=== PATIENT | female | born 1995 | race Caucasian/White ===

== ENCOUNTER 2024-02-03 01:08 | Inpatient (IN) | payer OTHER, SELFPAY ==
[2024-02-03] VITALS (186 sets, daily range): BP systolic 79–134; BP diastolic 39–87; PULSE 60–143; RESP 18; TEMP 36.3–37.7; O2SAT 93–100; BMI 29.5
--- NOTE | 2024-02-03 01:22 | LDADM ---
This patient, Lucita Vazquez, was admitted to Labor/Delivery/Recovery 107 on 02/03/24 at 01:08. Plans for labor, pain management and were discussed with patient. Patient/family oriented to hospital policies and general routines including ID bracelet, bed and alarms, visiting hours, pain management, procedures, bathroom and other care routines, personal items, smoking policy, room service/diet and guest tray routines, security routines, and visiting hours. Patient/Family are encouraged to report perceived risks to care and to ask questions if they do not understand what they are told or what they should do. See OBIX for further documentation.
[2024-02-03 01:37] LABS: Basophils Absolute Auto 0.1 K/mm3 (0.0-0.1); Basophils Percent Auto 0.5 % (0.2-1.2); Eosinophils Absolute Auto 0.1 K/mm3 (0-0.3); Eosinophils Percent Auto 0.9 % (0-4.4); Hematocrit 32.1 % (37.0-47.0); Hemoglobin 10.1 g/dL (12.0-15.0); Immature Granulocyte Absolute 0.13 K/mm3 (0.00-0.031); Lymphocytes Absolute Auto 2.85 K/mm3 (0.9-3.2); Lymphocytes Percent Auto 21.4 % (18.3-44.2); Mean Corpuscular HGB Conc 31.5 g/dl (32-36); Mean Corpuscular Volume 85.8 fl (80-100); Mean Platelet Volume 9.5 fl (7.4-10.4); Monocytes Absolute Auto 0.9 K/mm3 (0.1-0.6); Monocytes Percent Auto 7.1 % (2.6-8.5); Neutrophils Absolute Auto 9.2 K/mm3 (1.3-6.7); Neutrophils Percent Auto 69.1 % (45.5-73.1); Platelet Count Result 252 k/mm3 (150-375); Red Blood Count 3.74 M/mm3 (4.2-5.4); Red Cell Distribution Width 13.2 % (11.5-14.5); White Blood Count 13.3 K/mm3 (4.5-10.0)
[2024-02-03 02:27] LABS: HIV 1/2 Ab P24 Ag Result Negative (Negative)
[2024-02-03] MEDS: AMPICILLIN 2 GM/NS 100 ML 2 GM/100 ML BAG IVPB (02:52)
[2024-02-03] MEDS: LACTATED RINGERS 1,000 ML 125 ML IV CONT ×3 (02:52→14:43)
--- NOTE | 2024-02-03 05:30 | P.PNAN_ITS ---
Anes - Eval Pre Procedure Procedure: Labor epidural Date/Time: 02/03/24 05:30 Surgeon: Aashish Preop Diagnosis: Abdominal pain with contractions Pre Op Diagnosis: SROM Patient Data Age: 28 Gender: F Height: 1.63 m Weight: 78 kg Last Vital Signs Temp 97.8 F 02/03/24 04:00 Pulse 90 02/03/24 05:00 BP 123/87 02/03/24 05:00 Allergies Allergy/AdvReac Type Severity Reaction Status Date / Time No Known Allergies Allergy Verified 02/03/24 02:39 Laboratory Tests 02/03/24 01:30 WBC 13.3 H K/mm3 (4.5-10.0) RBC 3.74 L M/mm3 (4.2-5.4) Hgb 10.1 L g/dL (12.0-15.0) Hct 32.1 L % (37.0-47.0) MCV 85.8 fl (80-100) MCH 27.0 pg (26-34) MCHC 31.5 L g/dl (32-36) RDW 13.2 % (11.5-14.5) Plt Count 252 k/mm3 (150-375) MPV 9.5 fl (7.4-10.4) Immature Gran % (Auto) 1.0 H % (0-0.5) Neut % (Auto) 69.1 % (45.5-73.1) Lymph % (Auto) 21.4 % (18.3-44.2) [place] % (Auto) 7.1 % (2.6-8.5) Eos % (Auto) 0.9 % (0-4.4) Baso % (Auto) 0.5 % (0.2-1.2) Lymph # (Auto) 2.85 K/mm3 (0.9-3.2) [place] # (Auto) 0.9 H K/mm3 (0.1-0.6) Eos # (Auto) 0.1 K/mm3 (0-0.3) Baso # (Auto) 0.1 K/mm3 (0.0-0.1) Abs Immat Gran (auto) 0.13 H K/mm3 (0.00-0.031) Absolute Neuts (auto) 9.2 H K/mm3 (1.3-6.7) Absolute Nucleated RBC 0.000 K/mm3 (0.0-0.012) Nucleated RBC % 0.0 % (0.0-0.2) RPR Pending HIV 1&2 Ab/P24 Ag 4thGn Negative (Negative) Blood Type A Positive Antibody Screen Negative : gestational age HCG: positive Patient hx anesthesia problems: none Family hx anesthesia problems: none Results Review: All pre-operative results and documents have been reviewed as part of the pre- operative evaluation. [facility] Past Medical History Medical History Overweight (BMI 25.0-29.9) and not yet delivered Social History Social History Smoking status: Never smoker Do You Feel Safe in your Home?: Yes Lack of Transportation: No Lack of Food: Never True Current Housing: I Have Housing Concerned About Future Housing: No Difficulty Paying Gas/Electric Bills: No Difficulty Paying for Meds: No Currently Unemployed: No Education: Bachelor's Degree Difficulty w/ Childcare or Family Care: No Spiritual care concerns: No Exam Day of Procedure 02/03/24 05:30 Patient weight: overweight
[2024-02-03] MEDS: OXYTOCIN 30 UNITS/NS 500 ML 30 UNITS/500 ML BAG IV CONT (06:41)
--- NOTE | 2024-02-03 08:30 | PM.IMHP ---
H&P: HPI History of Present Illness Date/Time: 02/03/24 08:30 Chief Complaint: SROM Narrative: Patient is a 28 year old at 38w2d who presents after SROM of clear fluid overnight. She reports mild contractions since that time. SHe denies bleeding and reports good movement. Her has been complicated by circumvallate placenta, with good growth. Denies headaches, vision changes, chest pain, dyspnea, RUQ pain or epigastric pain. Review of Systems Review of Systems: All systems reviewed & are unremarkable except as noted in HPI and below PMFSH Past Medical History Medical History Overweight (BMI 25.0-29.9) and not yet delivered Social History Social History Smoking status: Never smoker Do You Feel Safe in your Home?: Yes Lack of Transportation: No Lack of Food: Never True Current Housing: I Have Housing Concerned About Future Housing: No Difficulty Paying Gas/Electric Bills: No Difficulty Paying for Meds: No Currently Unemployed: No Education: Bachelor's Degree Difficulty w/ Childcare or Family Care: No Spiritual care concerns: No Meds Home Medications and Allergies Allergies Allergy/AdvReac Type Severity Reaction Status Date / Time No Known Allergies Allergy Verified 02/03/24 02:39 Vital Signs Vital Signs - 24 hr 02/03/24 04:01 02/03/24 04:06 02/03/24 04:31 Temperature Pulse Rate 79 78 80 Blood Pressure 100/45 L 113/66 02/03/24 02:00 02/03/24 04:00 02/03/24 05:00 Temperature 97.6 F 97.8 F Pulse Rate 90 Blood Pressure 123/87 02/03/24 06:45 02/03/24 06:40 02/03/24 07:59 Temperature 98.8 F Pulse Rate 78 83 Blood Pressure 115/70 112/65 02/03/24 08:01 Temperature Pulse Rate 86 Blood Pressure 109/69 Exam Const: General: comfortable and no acute distress HENMT: Mouth: Yes moist mucous membranes Eyes: General: appearance normal, both eyes and all related structures Resp: Effort & Inspection: normal respiratory effort Cardio: Rate: regular rate Rhythm: regular rhythm Skin: General skin exam: normal color and no rashes or lesions noted Extrem: General: normal to inspection Psych: Mental Status: mental status grossly normal H&P: Results Labs Labs: Short CBC 02/03/24 Range/Units 01:30 WBC 13.3 H (4.5-10.0) K/mm3 Hgb 10.1 L (12.0-15.0) g/dL Hct 32.1 L (37.0-47.0) % Plt Count 252 (150-375) k/mm3 Assessment and Plan Assessment and plan (1) SROM (spontaneous rupture of membranes): Status: Acute (2) 38 weeks gestation of : Code(s): Z3A.38 - 38 weeks gestation of Status: Acute Plan - SROM of clear fluid - SVE /-3 - pitocin per protocol -epidural when desired
[2024-02-03 11:26] LABS: Rapid Plasma Reagin Non-Reactive (NonReactive)
[2024-02-03] MEDS: AMPICILLIN 1 GM/NS 50 ML 1 GM/50 ML BAG IVPB (17:27)
--- NOTE | 2024-02-03 19:55 | PM.OBPRVD ---
OB - Vaginal Delivery Note Procedure Delivery date: 02/03/24 Events: Other (SROM at 2300 (02/02/24)) Induction method: Per Pitocin Protocol Delivery monitor: External FHT and Internal Uterine Route of delivery: Episiotomy description: None Laceration Description: Perineal - 2nd Degree Delivery repair: vicryl Specimen: No Quantitative Blood Loss (ml): 150 Anesthesia type: Epidural Disposition: Floor Complications: No immediate complications Narrative: See H&P and notes for details on patient's admission and labor. She progressed to complete cervical dilation and at the appropriate time began pushing. With adequate expulsive efforts by the mother, the baby's head was delivered without difficulty. Nuchal cord was not present. The baby's left shoulder was anterior and delivered under the pubic symphysis without difficulty. The posterior shoulder and the rest of the baby delivered without difficulty. The umbilical cord was doubly clamped and cut after 60 seconds of delayed cord clamping. Care of the infant was then assumed by the nursing staff. Baby Date of : 02/03/24 Weeks of gestation at delivery: 38 gender: Male presentation: vertex position: Left Occiput Anterior Placenta delivery description: Expressed Cord Vessel Description: 3 Vessels
[2024-02-03] MEDS: OXYTOCIN 30 UNITS/NS 500 ML 30 UNITS/500 ML BAG 125 UNITS IV CONT (20:05)
[2024-02-03] MEDS: IBUPROFEN 600 MG TABLET PO (20:40)
[2024-02-03] MEDS: BENZOCAINE 20% AER SPR (*SP) 56 GM CAN 1 SPRAY TOPICAL (22:18)
[2024-02-03] MEDS: ACETAMINOPHEN 325 MG TABLET 650 MG PO (22:18)
[2024-02-03] MEDS: WITCH HAZEL 40 PADS 1 PAD TOPICAL (22:18)
[2024-02-04 02:56] VITALS: BP 108/63; PULSE 84; RESP 18; TEMP 37.1; O2SAT 98
[2024-02-04 05:05] LABS: Hematocrit 27.7 % (37.0-47.0); Hemoglobin 8.7 g/dL (12.0-15.0)
[2024-02-04 08:00] VITALS: BP 112/74; PULSE 87; RESP 16; TEMP 37.4; O2SAT 98
[2024-02-04] MEDS: MULTIVIT/MIN/PREN/FOL AC/IRON TABLET 1 TAB PO (09:01)
[2024-02-04] MEDS: DOCUSATE SODIUM 100 MG CAPSULE PO ×2 (09:01→16:47)
[2024-02-04] MEDS: POLYSACCHARIDE IRON COMPLEX 150 MG CAPSULE PO ×2 (09:01→16:47)
[2024-02-04] MEDS: ACETAMINOPHEN 325 MG TABLET 650 MG PO ×2 (09:01→16:47)
[2024-02-04] MEDS: IBUPROFEN 600 MG TABLET PO (11:49)
[2024-02-04 12:44] VITALS: BP 121/68; PULSE 79; RESP 16; TEMP 37.2; O2SAT 99
--- NOTE | 2024-02-04 15:12 | WPDANLDPN2 ---
Anes-Prog Note L&D Date/Time: 02/04/24 15:12 Comfortable throughout: labor and delivery Neuraxial method: epidural Epidural/Spinal procedure site: clean & non-tender Neuro status: Neuro function grossly intact. Cardiovascular status: normal Respiratory status: normal Airway patency: baseline Mental status: baseline Post-Op hydration status: normal Vital Signs: Last Vital Signs Temp 37.2 C 02/04/24 12:44 Pulse 79 02/04/24 12:44 Resp 16 02/04/24 12:44 BP 121/68 02/04/24 12:44 Pulse Ox 99 02/04/24 12:44 O2 Del Method Room Air 02/04/24 07:30 Pain score (VAS): 0/10 I/O: Intake & Output 02/03/24 02/04/24 02/04/24 23:59 07:59 15:59 Intake Total 100 Output Total 150 Balance -150 100 Post-procedural complaints: none Patient feedback: Patient satisfied with anesthetic care.
--- NOTE | 2024-02-04 15:27 | PC.NURSE ---
[id number] Introductions were made, then consulted with patient to assess needs related to . Discussed with mother her?plans to feed?her infant, the?experience so far, encouraged [id number] upright on her chest/breast, stimulating for wakefulness and protecting her milk supply. Resources provided for inpatient and outpatient services with the feeding sheet, mom/baby guide and name written on the communication board. Mother voiced understanding of information and will call if there is a request for assistance. [id number] Attempts were made with [id number], stimulation to practice and is sleepy and reluctant. Breast pump provided prior to meeting RN LC due to ineffective . Instructions given on cleaning, care, usage, that there should be no pain, pumping schedule for milk production, collection, and storage of human milk. Patient was assessed for correct placement, flange size (changed to 21mm), to pump for comfort and nipple stretching/stimulation for adequate milk production every 3 hours (8 times in 24 hours) 1-2 times at night. Parents are encouraged to record the pumping schedule on the feeding sheet.?Mother voiced understanding of the education shared along with mom/baby guide and the pump measurement, flange fit handout for additional resource information. [id number] Purposefully rounded to assess for needs. remains sleepy and reluctant after circumcision this morning and oral medication. is a poor nut feeder. Demonstrated stimulating for wakefulness to practice . Infant had two voids and three large stools total with diaper change. Mother opted to bottle feed the EBM to and pump to protect the milk supply only without . Infant is reluctant and not showing feeding cues to practice with. After the diaper change infant bottle fed the EBM well. Nipple shield provided prior to meeting RNLC to mother due to ineffective with low profile nipples. Reviewed good handwashing, cleaning the nipple shield and the appropriate way to apply and use as a tool. Discussed with mom the nipple shield precautions, possible complications associated with the risks and benefits. Reviewed practicing with a nipple shield, then without and how to protect the milk supply and production. Demonstrated the correct use of the nipple shield. Parents voiced understanding of education. Mom voiced understanding of the importance of hand expression, nipple stimulation and initiating a pumping schedule if continues to nurse with the shield.
[2024-02-04 16:00] VITALS: BP 109/53; PULSE 75; RESP 16; TEMP 36.8; O2SAT 98
--- NOTE | 2024-02-04 21:10 | PM.OBPNVD ---
OB - PN: Subj Subjective Date/time seen: 02/04/24 0815 Interval history: PPD#1 Doing well, no issues Pain well controlled , doing well Voiding without issue Tolerating general diet OB - PN: Obj Data Labs 02/04/24 01:42 Labs: Laboratory Results - last 24 hr 02/04/24 01:42 Hgb 8.7 L Hct 27.7 L OB - PN A/P Assessment and Plan (1) (spontaneous vaginal delivery): Code(s): O80 - Encounter for full-term uncomplicated delivery Status: Acute Plan day: 1 Plan: routine care Time Spent With Patient Time: Total time spent is greater than 50% in coordination of care (as documented) at patient's floor/unit and/or counseling patient: Review of Systems Review of Systems: All systems reviewed & are unremarkable except as noted in HPI and below Exam Const: General: comfortable and no acute distress Resp: Effort & Inspection: normal respiratory effort
[2024-02-04 21:36] VITALS: BP 113/68; PULSE 79; RESP 16; TEMP 36.7; O2SAT 97
[2024-02-05 07:40] VITALS: BP 113/67; PULSE 72; RESP 16; TEMP 36.8; O2SAT 99
[2024-02-05] MEDS: IBUPROFEN 600 MG TABLET PO (08:44)
[2024-02-05] MEDS: DOCUSATE SODIUM 100 MG CAPSULE PO (08:44)
[2024-02-05] MEDS: POLYSACCHARIDE IRON COMPLEX 150 MG CAPSULE PO (08:44)
[2024-02-05] MEDS: MULTIVIT/MIN/PREN/FOL AC/IRON TABLET 1 TAB PO (08:44)
--- NOTE | 2024-02-05 10:31 | PC.NURSE ---
Patient viewed the discharge video Mother & Baby Care, The First Two Weeks . Patient was given the opportunity and encouraged to ask questions. Patient verbalized understanding of information shared and has been given the mother/baby guide for home reference.
--- NOTE | 2024-02-05 12:56 | PC.NURSE ---
[id number] Consulted with mother concerning needs and she shared her ability to independently latch infant optimally without pain at least once last night and early this morning. Mother is feeding appropriately for growth of infant and understands stimulating infant to eat if needed, however; mother requests assistance before going home. has had appropriate feedings in the last 24 hours meets the outcomes for weight, output, blood sugar and jaundice at this time. Reviewed positioning and ear, shoulder, hip alignment, supporting the breast to facilitate a deep latch, asymmetrical latch (off-center), leading with the chin with a big, open, wide gape and body close to mother. latched optimally to the left breast in football position, then the right breast using cross cradle. Education given to the mother of how to visualize the suckling (with good rocking jaw motion), swallows (dropping of the lower jaw) and how to listen for drinking at the breast (the ka sound) which infant demonstrated. was able to maintain latch without pain to mother protecting the nipple with optimal positioning and latching. At times demonstrated some dimpling and latch was adjusted. Parents voice understanding of what an ineffective vs effective latch looks like. Reviewed comfort measures of healing with a warm, wet washcloth to rinse breast, then leave open to air-dry, good handwashing when or touching the breast/nipples to prevent infection. Discussed with mother if there's pain or misshaped nipples to remove from the breast and latch optimally switching breast and positioning as needed to protect her nipples. Reminded parents to encourage to use a big, wide, open, gape and placing nipple to the back of the tongue aiming for the roof of the infants mouth (soft palate). Reinforced understanding of milk production, transition of milk, signs of adequate intake, transition of stool, prevention/relief of engorgement, plugged ducts, mastitis, responsive watching for feeding cues, the different methods of stimulating infant to breastfeed 1-3 hours after the start of the last feeding, community resources, and when to call a provider using the resource of the feeding sheet along with the mom and baby guide. Parents voiced understanding of the information shared, is confident to continue effectively her infant at home, when to call for assistance, denies any additional assistance or education at this time. Reported to the Primary RN.
--- NOTE | 2024-02-05 13:28 | PC.NURSE ---
[id number] requested. Upon entering the room mother has latched to the right breast. Closer assessment there's dimpling and less than 90 degree mouth opening. Detached . Stimulated for wakefulness, then latched optimally to the right breast using cross cradle and the U-hold. Infant demonstrated swallowing with no pain to mother. Increased swallowing with mother gently compressing her breast while infant suckles. Encouraged frequent with an optimal latch watching for swallowing to keep peeing, pooping and prevent weight loss and increased jaundice. Infant has had appropriate feedings in the last 24 hours meets the outcomes for weight, output, blood sugar and jaundice at this time. Reinforced understanding of milk production, transition of milk, signs of adequate intake, transition of stool, prevention/relief of engorgement, plugged ducts, mastitis, responsive watching for feeding cues, the different methods of stimulating infant to breastfeed 1-3 hours after the start of the last feeding, community resources, and when to call a provider using the resource of the feeding sheet along with the mom and baby guide. Encouraged parents to call for assistance if needed to latch to the left breast after this effective session. Parents voiced understanding of the information.
--- NOTE | 2024-02-06 09:58 | P.DS_ITS ---
DS: Admitting Diagnosis Discharge Date 02/05/24 Admitting Diagnosis rupture of membranes DS: Discharge Diagnosis Discharge Diagnosis (1) (spontaneous vaginal delivery): Code(s): O80 - Encounter for full-term uncomplicated delivery Status: Acute OB - DS: Summary OB Procedures : None OB Procedures Intrapartum: Spontaneous Vag Delivery OB Procedures: : None Peripartum Data Laceration Description: Perineal - 2nd Degree Episiotomy description: None Time Spent with Patient Time attestation: Total time spent providing and/or coordinating discharge services: Discharge Plan Discharge Discharging Clinician: Stone Lee Patient Disposition: Home, Self-Care Activity: pelvic rest Diet: regular Discharge Instructions: Education: Mom and Baby Guide Given to: Mother Follow-Up: Call your delivering provider's office for an appointment to be seen in: 4- 6 Weeks Mom and baby should come to the [facility] for the follow-up appointment. Appointment Date/Time: February 06, 2024 at 11:00 am What to expect at your follow-up visit: Blood Pressure Check Physical Assessment Call [phone] if you are unable to keep your appointment time. BREAST CARE: * Wear a snug supportive bra. * For engorgement discomfort: Breast Feeding: * Apply warm moist washcloths * Express milk as needed to relieve engorgement * Wear loose clothing * For sore nipples: * Identify correct latch-on * Apply warm moist washcloths before and after nursing * Air dry nipples after nursing * May apply Lansinoh cream to nipples PERINEAL CARE: * Until bleeding stops, use your lurdes bottle after urinating * Change your pad frequently throughout the day * You may take sitz baths several times a day (fill your bathtub with warm water and soak for 20 minutes.) Do NOT bathe in the water * No tub baths until seen by your physician - You may shower ACTIVITY: * Rest as much as possible. * Do not exercise or lift anything heavier than your baby (such as laundry or other children.) * Avoid stairs or driving as much as possible. * Do not put anything into the vagina. No douching, tampons, or sexual activity until seen by physician. NOTIFY PHYSICIAN IF YOU HAVE ANY QUESTIONS OR IF ANY OF THE FOLLOWING SYMPTOMS OCCUR: * If your vaginal bleeding becomes foul smelling. * If your vaginal bleeding becomes more heavy than a period or if your bleeding changes from pink to bright red. However, you may pass an occasional walnut- sized clot once or twice for the first week . * If you experience a sharp, shooting pain in your calves. * If you discover a hard, reddened area on your breast or if you experience flu- like symptoms. DIET: * Eat regular, well-balanced meals. * Drink plenty of fluids daily. If , drink to thirst. Stand Alone Forms: General Discharge Information Follow-up/Referrals: Raj Zendejas MD [Physician] - Discharge Medications: Continued prenat.vits,adam,[id number] Tablet 1 tablet PO DAILY Date of admission: 02/03/24 01:08 Primary Care Provider: UNKNOWN,DOCTOR Admitting Provider: Raj Zendejas Attending physician on admission: Raj Zendejas Condition: Stable
[2024-02-06 11:16] VITALS: BP 110/67; PULSE 72; RESP 18; TEMP 37.1; O2SAT 100
== END 2024-02-05 14:32 | disposition home or self-care (01) | DRG 807 ==
LOC: ANHOBOP 01:08 → ANHOB2 02-04 13:22 → ANHLDR 02-06 10:22 → ANHOB2 02-06 10:22
PROVIDERS: Obstetrics & Gynecology; Admitting Provider Obstetrics & Gynecology; Visit Provider Obstetrics & Gynecology
DX: O43.113 Circumvallate placenta, third trimester (principal); Z37.0 Single live birth; O70.1 Second degree perineal laceration during delivery; Z3A.38 38 weeks gestation of pregnancy; O42.92 Full-term premature rupture of membranes, unspecified as to length of time between rupture and onset of labor
CPT/HCPCS: 36415; 85014; 85018; 85025; 86592; 86703; 86850; 86900; 86901; A9270; G0432; J0290; J2590; J2795; J7120

== ENCOUNTER 2025-08-23 22:39 | Inpatient (IN) | payer OTHER, SELFPAY ==
[2025-08-23] VITALS (10 sets, daily range): BP systolic 121–127; BP diastolic 75–83; PULSE 78–94; O2SAT 98–99
--- OUTSIDE RECORDS SUMMARY | 2025-08-23 23:10 | XMS_ITS | Continuity of Care Document ---
Author Organization [facility], [place] Address [address] [place] [address] Care Team Providers Care Street Sprinkler Name Role Phone CATARINAMILANO Primary Care Provider [phone] Assessment No assessment recorded. Plan of Treatment Reminders Order Date Submit Date Provider Last Modified By Organization Details Last Modified Time Details Appointments OB ROUTINE 2024 03:45P Kath MLADONADO MD Not available Not available Not available INDUCTION 2024 05:00A Kath MALDONADO MD Not available Not available Not available Lab None recorded. Referral None recorded. Procedures None recorded. Surgeries None recorded. Imaging None recorded. Medication Orders None recorded. Patient TargetsNo targets recorded. Patient InstructionsNo instructions recorded. Reason for Referral None Reported. Results Created Date Observation Date Name Description Value Unit Range Abnormal Flag Note LastModifiedBy Organization Detail LastModifiedTime 03/09/20 25 03/09/2025 [UNIT Y] ANEUP LOIDY NIPT fraction 9.4% normal Not Available Lalita jasso [address], [place], [address], 03/09/2025 17:04:01 03/09/20 25 03/09/2025 [UNIT Y] ANEUP LOIDY NIPT 22Q11.2 microdeletio n LOW RISK <1 in 10,000 normal Not Available Aníbal persaud [address], [place], [address], 03/09/2025 17:04:01 03/09/20 25 03/09/2025 [UNIT Y] ANEUP LOIDY NIPT sex chromosome aneuploidy NOT DETECT ED normal Not Available [facility] [address], [place], [address], 03/09/2025 17:04:01 03/09/20 25 03/09/2025 [UNIT Y] ANEUP LOIDY NIPT monosomy X LOW RISK <1 in 10,000 normal Not Available [facility] [address], [place], [address], 03/09/2025 17:04:01 03/09/20 25 03/09/2025 [UNIT Y] ANEUP LOIDY NIPT trisomy 13 LOW RISK <1 in 10,000 normal Not Available [facility] [address], [place], [address], 03/09/2025 17:04:01 03/09/20 25 03/09/2025 [UNIT Y] ANEUP LOIDY NIPT trisomy 18 LOW RISK <1 in 10,000 normal Not Available [facility] [address], [place], [address], 03/09/2025 17:04:01 03/09/20 25 03/09/2025 [UNIT Y] ANEUP LOIDY NIPT trisomy 21 LOW RISK <1 in 10,000 normal Not Available [facility] [address], [place], [address], 03/09/2025 17:04:01 03/09/20 25 03/09/2025 [UNIT Y] ANEUP LOIDY NIPT sex MALE normal Not Available [facility] [address], [place], [address], 03/09/2025 17:04:01 03/09/20 25 03/09/2025 [UNIT Y] ANEUP LOIDY NIPT gestation SINGLE TON normal Not Available [facility] [address], [place], [address], 03/09/2025 17:04:01 03/09/20 25 03/09/2025 [UNIT Y] ANEUP LAKHWINDER NIPT for detailed report, see pdf See PDF normal Not Available [facility] [address], [place], [address], 03/09/2025 17:04:01 03/02/20 25 03/02/2025 CBC W/DIF F WBC 12.0 10'3/ uL 3.5-10 .5 high Not Available [facility] (Lab) [address], [place], [address], 03/03/2025 12:10:29 03/02/20 25 03/02/2025 CBC W/DIF F RBC 4.15 10'6/ uL (based on docume nted legal sex) 3.80-5 .20 Not Available [facility] (Lab) [address], [place], [address], 03/03/2025 12:10:29 03/02/20 25 03/02/2025 CBC W/DIF F HGB 12.9 g/dL (based on docume nted legal sex) 11.6-1 5.4 Not Available [facility] (Lab) [address], [place], [address], 03/03/2025 12:10:29 03/02/20 25 03/02/2025 CBC W/DIF F HCT 37.6 % (based on docume nted legal sex) 34.0-4 5.0 Not Available [facility] (Lab) [address], [place], [address], 03/03/2025 12:10:29 03/02/20 25 03/02/2025 CBC W/DIF F MCV 90.6 fL 80.0-9 9.0 Not Available [facility] (Lab) [address], [place], [address], 03/03/2025 12:10:29 03/02/20 25 03/02/2025 CBC W/DIF F MCH 31.1 pg 27.0-3 4.0 Not Available [facility] (Lab) [address], [place], [address], 03/03/2025 12:10:29 03/02/20 25 03/02/2025 CBC W/DIF F MCHC 34.3 g/dL 32.0-3 5.5 Not Available [facility] (Lab) [address], [place], [address], 03/03/2025 12:10:29 03/02/20 25 03/02/2025 CBC W/DIF F RDW 11.9 % 11.0-1 5.0 Not Available [facility] (Lab) [address], [place], [address], 03/03/2025 12:10:29 03/02/20 25 03/02/2025 CBC W/DIF F plt 344 10'3/ uL 150-40 0 Not Available [facility] (Lab) [address], [place], [address], 03/03/2025 12:10:29 03/02/20 25 03/02/2025 CBC W/DIF F MPV 9.8 fL 8.8-12 .1 Not Available [facility] (Lab) [address], [place], [address], 03/03/2025 12:10:29 03/02/2003/02/2025 CBC W/DIF F NRBC's 0.0 % 0.0 Not Available [facility] (Lab) [address], [place], [address], 03/03/2025 12:10:29 03/02/20 25 03/02/2025 CBC W/DIF F absolute NRBCs 0.0 10'3/ uL no refere nce range establ ished Not Available [facility] (Lab) [address], [place], [address], 03/03/2025 12:10:29 03/02/20 25 03/02/2025 CBC W/DIF F neutrophils 74.6 % 34.0-7 3.0 high Not Available [facility] (Lab) [address] [place], [address], 03/03/2025 12:10:29 03/02/20 25 03/02/2025 CBC W/DIF F lymphocytes 19.0 % 15.0-5 0.0 Not Available [facility] (Lab) [address] [place], [address], 03/03/2025 12:10:29 03/02/20 25 03/02/2025 CBC W/DIF F monocytes 5.0 % 1.0-15 .0 Not Available [facility] (Lab) [address] [place], [address], 03/03/2025 12:10:29 03/02/20 25 03/02/2025 CBC W/DIF F eosinophils 0.7 % 0.0-8. 0 Not Available [facility] (Lab) [address] [place], [address], 03/03/2025 12:10:29 03/02/20 25 03/02/2025 CBC W/DIF F basophils 0.4 % 0.0-2. 0 Not Available [facility] (Lab) [address] [place], [address], 03/03/2025 12:10:29 03/02/20 25 03/02/2025 CBC W/DIF F immature granulocytes 0.3 % no define d refere nce range Immat ure Granu locyt es (IG) repre sents autom ated enume ratio n of Metam yeloc ytes, Myelo cytes and Promy elocy elvis when IG is < 5%. Blast s are not inclu ded in IG and repor viktor separ ately if prese nt. Not Available [facility] (Lab) [address] [place], [address], 03/03/2025 12:10:29 03/02/20 25 03/02/2025 CBC W/DIF F absolute neutrophils 8.9 10'3/ uL 1.5-8. 0 high Not Available [facility] (Lab) [address], [place], [address], 03/03/2025 12:10:29 03/02/20 25 03/02/2025 CBC W/DIF F absolute lymphocytes 2.3 10'3/ uL 1.0-4. 0 Not Available [facility] (Lab) [address], [place], [address], 03/03/2025 12:10:29 03/02/20 25 03/02/2025 CBC W/DIF F absolute monocytes 0.6 10'3/ uL 0.2-1. 0 Not Available [facility] (Lab) [address], [place], [address], 03/03/2025 12:10:29 03/02/20 25 03/02/2025 CBC W/DIF F absolute eosinophils 0.1 10'3/ uL 0.0-0. 6 Not Available [facility] (Lab) [address], [place], [address], 03/03/2025 12:10:29 03/02/20 25 03/02/2025 CBC W/DIF F absolute basophils 0.1 10'3/ uL 0.0-0. 3 Not Available [facility] (Lab) [address], [place], [address], 03/03/2025 12:10:29 03/02/20 25 03/02/2025 CBC W/DIF F absolute immature granulocytes 0.0 10'3/ uL 0.00-0 .10 Refer ence range s for nonbi nary/ inter sex or unspe cifie d gende r patie nts have not been estab lishe d. Pleas e [facility] for range s estab lishe d for cisge nder patie nts and evalu ate in the clini adam raymond xt of the indiv idual patie nt: https :[email or web address] [email or web address] [email or web address] nm.or g/gen derx Not Available [facility] (Lab) [address], [place], [address], 03/03/2025 12:10:29 03/02/20 25 03/02/2025 HIV 1/2 ANTIG EN/AN TIBOD Y, REFLE X CONFI RMATI ON HIV antigen/anti body Nonrea ctive nonrea ctive HIV-1 antig en and HIV-1 /HIV- 2 antib odies were not detec viktor. No labor atory evide nce of HIV infec tion. Not Available [facility] (Lab) [address], [place], [address], 03/03/2025 12:10:29 03/02/2003/02/2025 HEPAT ITIS B SURFA CE ANTIG EN hepatitis B surface antigen Non-re active non-re active This assay was perfo rmed using [employer] ratio n reage nts and test kits. Value s obtai celina with other assay metho ds or kits canno t be used inter cano eably . Not Available [facility] (Lab) [address], [place], [address], 03/03/2025 12:10:30 03/02/20 25 03/02/2025 HEPAT ITIS C ANTIB SYD SCREE N, REFLE X TO CONFI RMATI ON hepatitis C antibody Non-re active non-re active Antib odies to HCV Not Detec viktor, does not exclu de the possi bilit y of expos ure to HCV. Not Available [facility] (Lab) [address], [place], [address], 03/03/2025 12:10:30 03/02/2003/02/2025 TSH, REFLE X FREE T4 TSH 2.17 uIU/m L 0.30-5 .33 Not Available [facility] (Lab) [address], [place], [address], 03/03/2025 12:10:30 03/02/20 25 03/02/2025 RUBEL LA IGG ANTIB SYD, QUANT rubella antibodies, IgG Reacti ve reacti ve Not Available [facility] (Lab) [address], [place], [address], 03/03/2025 12:10:31 03/02/20 25 03/02/2025 RUBEL LA IGG ANTIB SYD, QUANT rubella antibodies, IgG quant 20.9 IU/mL >=10 Non-r eacti ve (Non- Immun e) <10 IU/mL React gustavo (Immu ne) > or = 10 IU/mL Not Available [facility] (Lab) [address], [place], [address], 03/03/2025 12:10:31 03/02/20 25 03/02/2025 TYPE/ RH/SC REEN ABO/Rh type A POS Not Available [facility] (Lab) [address] [place], [address], 03/03/2025 12:10:31 03/02/20 25 03/02/2025 TYPE/ RH/SC REEN antibody screen NEG Not Available [facility] (Lab) [address], [place], [address], 03/03/2025 12:10:31 03/02/20 25 03/02/2025 TYPE/ RH/SC REEN exp date 2024 23:59 Not Available [facility] (Lab) [address], [place], [address], 03/03/2025 12:10:31 03/02/20 25 03/02/2025 HEMOG LOBIN A1C hemoglobin A1C 5.0 % 4.0-5. 6 The Ameri can Diabe elvis [employer] iatio n recom mends that a prima ry goal of thera fausto suarez d be a HBA1C of < 7% and that physi cians haul d reeva luate the treat ment regim en in patie nts with HBA1C value s consi stent ly > 8%. <5.7% Camryn l 5.7 - 6.4% Incre ased risk for diabe elvis >=6.5 % Diagn ostic of diabe elvis <7.0% Goal of thera py >8.0% Actio n sugge sted Not Available [facility] (Lab) [address], [place], [address], 03/03/2025 12:10:31 03/02/20 25 03/02/2025 RPR SCREE N, REFLE X TITER /CONF IRMAT ION RPR qualitative Nonrea ctive nonrea ctive Not Available [facility] (Lab) [address], [place], [address], 03/03/2025 12:10:32 05/27/20 25 05/27/2025 CULTU RE: URINE result report SEE RESULT S BELOW Test: Cultu re: Urine Speci men Sourc e: Urine - Clean Catch Speci men Type: Urine Speci men Date: 2024 1053 Resul t Date: 2024 2233 Resul t Statu s: Final resul t Abnor mal: No Resul ting Lab: [facility] [address] [facility] [address] Tel: CULTU RE ----- ----- ----- --- No growt h in 1 day (dete ction level of 10,00 0 colon ies / ml.) Not Available [facility] (Lab) [address], [place], [address], 05/28/2025 23:37:55 06/24/20 25 06/24/2025 HEMAT OCRIT (HCT) HCT 32.6 % (based on docume nted legal sex) 34.0-4 5.0 low Not Available [facility] (Lab) [address], [place], [address], 06/25/2025 14:14:21 06/24/20 25 06/24/2025 HEMOG LOBIN (HGB) HGB 10.3 g/dL (based on docume nted legal sex) 11.6-1 5.4 low Not Available [facility] (Lab) [address], [place], [address], 06/25/2025 14:14:22 06/24/20 25 06/24/2025 GTT - GESTA DHAVAL L SCREE N, ACOG OB glucose, 1 hour screen 70 mg/dL 70-135 Not Available [facility] (Lab) [address], [place], [address], 06/25/2025 14:14:22 06/24/20 25 06/24/2025 HIV 1/2 ANTIG EN/AN TIBOD Y, REFLE X CONFI RMATI ON HIV antigen/anti body Nonrea ctive nonrea ctive HIV-1 antig en and HIV-1 /HIV- 2 antib odies were not detec viktor. No labor atory evide nce of HIV infec tion. Not Available [facility] (Lab) [address], [place], [address], 06/25/2025 14:14:22 06/24/2006/24/2025 RPR SCREE N, REFLE X TITER /CONF IRMAT ION RPR qualitative Nonrea ctive nonrea ctive Not Available [facility] (Lab) [address], [place], [address], 06/25/2025 14:14:23 03/02/20 25 03/02/2025 US, obste tric, nucha l trans lucen cy No observ ation record ed. [facility] [address], [place], [address], 03/02/2025 17:50:41 03/02/20 25 03/02/2025 US, obste tric, 1st trime ster No observ ation record ed. [facility] [address], [place], [address], 03/02/2025 17:50:51 03/02/20 25 03/02/2025 US, obste tric, nucha l trans lucen cy No observ ation record ed. [email or web address] [address], [place], [address], 03/02/2025 16:58:55 04/26/20 25 04/26/2025 US, obste tric, 2nd trime ster No observ ation record ed. [email or web address] [address], [place], [address], 04/27/2025 09:50:11 04/26/20 25 04/26/2025 US, obste tric, 2nd or 3rd trime ster No observ ation record ed. [email or web address] [place] [address], [place], [address], 04/26/2025 18:15:52 05/27/20 25 05/27/2025 US, obste tric, follo w-up No observ ation record ed. [facility] [address], [place], [address], 05/27/2025 14:03:34 05/27/20 25 05/27/2025 US, obste tric, follo w-up No observ ation record ed. [email or web address] [address], [place], [address], 05/27/2025 14:07:05 07/22/20 25 07/22/2025 US, obste tric, follo w-up No observ ation record ed. [facility] [address], [place], [address], 07/22/2025 13:46:42 07/22/20 25 07/22/2025 US, obste tric, follo w-up No observ ation record ed. [email or web address] [address], [place], [address], 08/08/2025 11:16:18 Result Notes None recorded. Problems Name Problem SNOMED Code Status Onset Date Resolution Date Notes Provider Name and Address Organization Details Recorded Time Family history of Factor V Leiden mutation 2892373152 [id number] Completed testing negative 08/06 Megan Kwan [facility], [facility] 4 13:41:32 Placenta circumva llata 1736745 Completed serial growth Megan Kwan [facility], [facility] 4 13:41:32 Pregnanc y 68965552 Completed 202202/09/2024 SHAR Montoya [facility] 5 16:16:10 Pregnanc y 97983163 Active 2024 SHAR Montoya [facility] 5 16:16:09 Placenta circumva llata 2691501 Active 2024 32 week growth US SHANI MALDONADO MD [address], [place], [address], [facility] 5 18:25:20 Placenta circumva llata 9393953 Active 2024 32 week growth US SHANI MALDONADO MD [address], [place], [address], [facility] 5 18:25:20 Problem Notes None recorded. Procedures Surgical History Date Name Laterality Status Provider Name and Address Organization Details Recorded Time 04/24/2023 Date of Last Pap Smear completed Karime Galvin [facility] 02/02/2025 17:02:43 Imaging Results None recorded. Procedure Notes None recorded. Medical Equipment None Reported. Allergies No known drug allergies Medications Name Sig Start Date Stop Date Status Note LastModified by Organization Details LastModified Time bupropion HCl SR 150 mg tablet,12 hr sustained-r elease TAKE 1 TABLET BY MOUTH ONCE DAILY 06/21 completed Not Available Not Available Not Available phentermine 37.5 mg tablet TAKE 1 TABLET BY MOUTH ONCE DAILY IN THE MORNING BEFORE BREAKFAST 02/02 completed Not Available Not Available Not Available benzonatate 100 mg capsule TAKE 1 TO 2 CAPSULES BY MOUTH THREE TIMES DAILY NEEDED FOR COUGH 01/14 completed Not Available Not Available Not Available cephalexin 500 mg capsule TAKE 1 CAPSULE BY MOUTH THREE TIMES DAILY 01/14 completed Not Available Not Available Not Available amoxicillin 875 mg-potassiu m clavulanate 125 mg tablet TAKE 1 TABLET BY MOUTH EVERY 12 HOURS FOR 10 DAYS 06/24 completed Not Available Not Available Not Available bupropion HCl SR 200 mg tablet,12 hr sustained-r elease TAKE 1 TABLET BY MOUTH TWICE DAILY 07/05 completed Not Available Not Available Not Available azithromyci n 500 mg tablet TAKE 1 TABLET BY MOUTH ONCE DAILY FOR 5 DAYS 01/14 completed Not Available Not Available Not Available bupropion HCl XL 300 mg 24 hr tablet, extended release TAKE 1 TABLET BY MOUTH ONCE DAILY active Not Available Not Available No t Available active Not Available Not Avai lable Not Available Lomaira 8 mg tablet TAKE 1 TABLET BY MOUTH ONCE DAILY 02/02 completed Not Available Not Available Not Available Vitals Date Recorded Body weight Body mass index (BMI) Body height Systolic And Diastolic Provider Name and Address Organization Details Last Updated DateTime 07/22/2025 14164.078 39 g 25.2 kg/m2 162.56 cm 111/66 mm[Hg] Valerie Ortiz [facility] 07/22/2025 11:12:57 Social History Question Answer Notes LastModified by Organizat ion Details LastModified Time Tobacco Smoking Status Never Smoker Shirin chapman, [facility] 10/01/2023 17:03:25 Are You Blind Or Do You Have Difficulty Seeing? No Information n ot available 08/06/2023 In The 14 Days Before Symptom Onset, Have You Had Close Contact With A Laboratory-confirm ed COVID-19 While That Case Was Ill? No Information n ot available 01/14/2023 In The 14 Days Before Symptom Onset, Have You Had Close Contact With A Person Who Is Under Investigation For COVID-19 While That Person Was Ill? No Information not available 01/14/2023 Have You Been To An Area Known To Be High Risk For COVID-19? No Information not available 01/14/2023 Are You Deaf Or Do You Have Serious Difficulty Hearing? No Information not available 08/06/2023 What Is The Highest Grade Or Level Of School You Have Completed Or The Highest Degree You Have Received? [id number] Information not available 08/06/2023 Are There Any Guns Present In Your Home? No Information not available 08/06/2023 Do You Use Protection During Sex? No Information not available 08/06/2023 Do You Use Your Seat Belt Or Car Seat Routinely? Yes Information not available 08/06/2023 Do You Have Smoke And Carbon Monoxide Detectors In Your Home? No Information not available 08/06/2023 How Much Tobacco Do You Smoke? No Information not available 09/03/2023 Do You Use Sunscreen Routinely? Yes Information not available 08/06/2023 Have You Used IV Drugs? No Information not available 08/06/2023 Sex: Unknown Functional Status Question Answer Note LastModified by Organizat ion Details LastModified Time Do you use any illicit or recreational drugs? No Information not available 01/14/2023 What is your level of alcohol consumption? None Information not available 11/28/2023 Are you able to walk independently without assistance or assistive devices? 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 Occasional Information not available 11/28/2023 Mental Status Question Answer Note LastModified by Organization D etails LastModified Time Do you feel stressed (tense, restless, nervous, or anxious, or unable to sleep at night)? [id number] Information not available 09/03/2023 Family History Relationship Description Onset Age of this Age Resolved Age Notes LastModified by Organization Details LastModified Time Maternal Aunt Anemia [email or web address] Not avail able 07/03/2023 15:51:07 Maternal Uncle Heart disease [email or web address] Not available 2022 15:51:07 Mother Disorder of thyroid gland Not available 2023 16:37:13 Mother Anemia [email or web address] Not available 01/30/2024 16:37:13 Maternal Grandmother Heart disease Not available 2023 16:37:13 Medical History Condition Response Other N Blood Transfusion N Dermatologic Disorders N Gestational Diabetes N Anxiety Disorder Y Autoimmune disease N Arthritis N Polyps N Infertility N Acid Reflux (GERD) N Cancer N Varicosities N Stroke N Neurologic/Epilepsy N Fibromyalgia N Headaches N Kidney Disease N Heart Problems N Kidney or Bladder Problems N Eating Disorder N Art (IVF or FET) N Hepatitis/Liver Disease N No Past Medical History N Urinary Tract Infection N Asthma N Trauma/Violence N Thrombophilias N Allergies (Food, seasonal, environmental ) N Breast Cancer N Drug/Latex Allergies/Reactions N Lung Disease N Defects or Inherited Disease N Breast Problem N Hematologic disorders N Anesthesia Complications N History of STI N Deep Vein Thrombosis N Polycystic ovary syndrome N History of abnormal pap N Endometriosis N High Cholesterol N Thyroid Problems N GI Problems N Anemia N Psychiatric Illness N Ovarian Cancer N Diabetes N Pulmonary (TB, Asthma) N Eczema N Abuse/Domestic Violence N Depression/ depression Y Heart Disease N Pre-Eclampsia N Hypertension N Osteoporosis N Gynecological History Statement/Question Response Abnormal Pap N Flow Moderate Date of LMP 12/05/2024 On BCP's at Conception? N N Was last menstrual period normal Y STIs/STDs N HPV Vaccine N Duration of Flow (days) 5 Current Control Method Age at First Child 27 Are cycles usually normal Y Frequency of Cycle (Q days) 29 Sexually Active? Y Menses Monthly Y Age of first menstrual cycle 12 Date of Last Pap Smear 04/24/2023 Sexual Problems? N LMP Approximate N Obstetrics History GPAL:G 2 P 1 0 0 1 Type Value Full Term 1 Living 1 Total 2 Past Encounters Encounter ID Performer Location Encounter Start Date Encounter Closed Date Diagnosis/Indication Diagnosis SNOMED-CT Code Diagnosis ICD10 Code Diagnosis IMO Codes Diagnosis Note [id number] SHANI MALDONADO MD [place] [address] [address] 06/24/2025 10:01:03 06/24/2025 10:41:54 Placenta circumvallata 7523490 O43.598 5045256 Gestation period, 28 weeks 27105270 Z3A.28 2721974 [id number] SHANI MALDONADO MD [place] [address],[place] [address] 07/05/2025 09:25:40 07/05/2025 10:13:57 Depressive disorder 94509419 F32.A 01070490 Placenta circumvallata 0968880 O43.300 2336529 Gestation period, 30 weeks 59274808 Z3A.30 7938857 [id number] SHANI MALDONADO MD [place] [address],[place] [address] 07/22/2025 10:16:16 07/22/2025 11:13:21 Placenta circumvallata 2169631 O43.113 Z03.74 Z3A.32 2295273 [id number] SHANI MALDONADO MD [place] [address],[place] [address] 07/22/2025 10:17:41 07/22/2025 11:28:37 Placenta circumvallata 8771413 O43.105 8404379 Gestation period, 32 weeks 3429505 Z3A.32 0713251 Health Concerns Section Related Observation LastModified by Organization Detai ls LastModified Time None Recorded Concern Status LastModified by Organization Details LastModified Time None Recorded Payers Encounter Date Sequence Insurance Name Policy Number Policy Monteiro Covered Member ID Monteiro Member ID Guarantor Name 07/22/2025 1 FROYLANNA - [employer]BA - [employer]ETS [employer] PIP[employer]ITTERS LOCAL [facility][note 3] (PPO) [id number] Jeff Vazquez [id number] Lucita Vazquez Notes Date Note Type Note Provider Name and Address Organization Details Recorded Time 07/22/2025 text/html Generic HPI TemplateReported by Patient SHANI MALDONADO MD [address], [place], [address], [facility] 07/22/2025 11:24:56 OBGyn Episode Ob Episode Information Episode Created Date Number of Fetuses Patient Bloodtype Patient rh Status Prepregnancy Weight lbs Domestic Partner Domestic Partner Phone Father Name Milk Of Lime Slaker Status 03/02/20 25 1 A Positive OPEN Fetus Data First Name Last Name Admitted to NICU Weight (g) Sex Living Outcome Pediatric Complications Fetus ID Race Codes Race Delivery Type [id number] Problems Problem Notes Problem Name Start Date End Date Resolution Snomed Code Not e Placenta circumvallata 04/26/2025 [id number] 0 32 week growth US Rufino Calculation Initial Rufino Date Initial Exam Date Initial Exam Provider Initial Ultrasound Date Last Menstrual Period Date Ultra Sound Weeks Gestation 09/11/2025 03/02/2025 03/02/2025 12/05/2024 12 Eighteen To Twenty Week Rufino Update Ultra Sound Date Fundal Height At Umbil Quickening Date Ultra Sound Latest Weeks Gestation Final Rufino Confirmed By Final Rufino Confirmed Date Final Rufino Date Ultra Sound Latest Days Gestation 0 [id number] 03/02/2025 09/11/19 26 0 Pre-ashly Flowsheet Flowsheet Date 03/02/2025 El Score Blood Edema Fundus Height Fundus Units Glucose Ketones Leukocytes Nitrite Labor Signs Protein Cervic Dilation Cervic Effacement Cervic Station Type Weight in lbs Pre/Post Dialysis Refused BP Diastolic BP Location Tested BP Systolic BP Type Fetus Heart Rate Present Fetus Movement Comments Flowsheet Date 03/02/2025 El Score Blood Edema Fundus Height Fundus Units Glucose Ketones Leukocytes Nitrite Labor Signs Protein Cervic Dilation Cervic Effacement Cervic Station neg none Type Weight in lbs Pre/Post Dialysis Refused Weight 129.45262023967 BP Diastolic BP Location Tested BP Systolic BP Type 79 L arm 122 sitting Fetus Heart Rate Present Fetus Movement A No Comments Patient presents to [facility] care. Hx of anxiety/depression, on Wellbutrin. otherwise uncomplicated. No nausea or cramping. NT/NB wnl today, desires NIPT. Will draw today with new OB labs. RTC 4 weeks for routine care. Flowsheet Date 03/30/2025 El Score Blood Edema Fundus Height Fundus Units Glucose Ketones Leukocytes Nitrite Labor Signs Protein Cervic Dilation Cervic Effacement Cervic Station Type Weight in lbs Pre/Post Dialysis Refused Weight 130.962349963326 BP Diastolic BP Location Tested BP Systolic BP Type 70 L arm 117 sitting Fetus Heart Rate Present A 142 Present Fetus Movement A Yes Comments no complaints, no problems, routine care, no contractions, no vaginal bleeding, no loss of fluid, no cramping Flowsheet Date 04/26/2025 El Score Blood Edema Fundus Height Fundus Units Glucose Ketones Leukocytes Nitrite Labor Signs Protein Cervic Dilation Cervic Effacement Cervic Station Type Weight in lbs Pre/Post Dialysis Refused BP Diastolic BP Location Tested BP Systolic BP Type Fetus Heart Rate Present Fetus Movement Comments Flowsheet Date 04/26/2025 El Score Blood Edema Fundus Height Fundus Units Glucose Ketones Leukocytes Nitrite Labor Signs Protein Cervic Dilation Cervic Effacement Cervic Station Type Weight in lbs Pre/Post Dialysis Refused Weight 135.969302121917 BP Diastolic BP Location Tested BP Systolic BP Type 76 L arm 113 sitting Fetus Heart Rate Present A Present Fetus Movement A Yes Comments Good movement. No cram ping or bleeding. Anatomy complete and normal aside from EFW 90%. Repeat growth US in 4 weeks. Circumvallate placenta, repeat US at 32 weeks. Will plan for GCT at next visit. RTC 4 weeks. Flowsheet Date 05/27/2025 El Score Blood Edema Fundus Height Fundus Units Glucose Ketones Leukocytes Nitrite Labor Signs Protein Cervic Dilation Cervic Effacement Cervic Station Type Weight in lbs Pre/Post Dialysis Refused BP Diastolic BP Location Tested BP Systolic BP Type Fetus Heart Rate Present Fetus Movement Comments Flowsheet Date 05/27/2025 El Score Blood Edema Fundus Height Fundus Units Glucose Ketones Leukocytes Nitrite Labor Signs Protein Cervic Dilation Cervic Effacement Cervic Station Type Weight in lbs Pre/Post Dialysis Refused Weight 137.299400582994 BP Diastolic BP Location Tested BP Systolic BP Type 72 L arm 108 sitting Fetus Heart Rate Present A 135 Fetus Movement A Yes Comments Doing well, getting over sin us infection. Good movement. No cramping or bleeding. EFw 68%, normal fluid. Repeat at 32 weeks. Going to [place] on Friday, discussed travel precautions. RTC 4 weeks. Flowsheet Date 06/24/2025 El Score Blood Edema Fundus Height Fundus Units Glucose Ketones Leukocytes Nitrite Labor Signs Protein Cervic Dilation Cervic Effacement Cervic Station Type Weight in lbs Pre/Post Dialysis Refused Weight 142.334187423388 BP Diastolic BP Location Tested BP Systolic BP Type 78 L arm 120 sitting Fetus Heart Rate Present A 145 Fetus Movement A Yes Comments Good movement. No cram ping or bleeding. GCT and labs today. Discussed tdap. Repeat growth US at 32 weeks. RTC 2 weeks. Flowsheet Date 07/05/2025 El Score Blood Edema Fundus Height Fundus Units Glucose Ketones Leukocytes Nitrite Labor Signs Protein Cervic Dilation Cervic Effacement Cervic Station Type Weight in lbs Pre/Post Dialysis Refused 144.611089837181 BP Diastolic BP Location Tested BP Systolic BP Type 74 L arm 118 sitting Fetus Heart Rate Present A 145 Fetus Movement A Yes Comments Doing well, good movem ent. Passed GCT, mild anemia. Started Fe supplement. Repeat growth US next visit. RTC 2 weeks. Flowsheet Date 07/22/2025 El Score Blood Edema Fundus Height Fundus Units Glucose Ketones Leukocytes Nitrite Labor Signs Protein Cervic Dilation Cervic Effacement Cervic Station Type Weight in lbs Pre/Post Dialysis Refused BP Diastolic BP Location Tested BP Systolic BP Type Fetus Heart Rate Present Fetus Movement Comments Flowsheet Date 07/22/2025 El Score Blood Edema Fundus Height Fundus Units Glucose Ketones Leukocytes Nitrite Labor Signs Protein Cervic Dilation Cervic Effacement Cervic Station Type Weight in lbs Pre/Post Dialysis Refused 147.963211657238 BP Diastolic BP Location Tested BP Systolic BP Type 66 L arm 111 sitting Fetus Heart Rate Present A 135 Fetus Movement A Yes Comments Good movement. No cram ping or bleeding. BH contractions. Taking Fe supplement. EFW 78%, vertex. Discussed preadmission. Would like EIL 09/05. RTC 2 weeks. Flowsheet Date 08/10/2025 El Score Blood Edema Fundus Height Fundus Units Glucose Ketones Leukocytes Nitrite Labor Signs Protein Cervic Dilation Cervic Effacement Cervic Station Type Weight in lbs Pre/Post Dialysis Refused 152.339535943721 BP Diastolic BP Location Tested BP Systolic BP Type 78 L arm 128 sitting Fetus Heart Rate Present A 135 Fetus Movement A Yes Comments Baby active. No cramping or bleeding. Received Tdap and RSV. Needs preadmission scheduled. EIL scheduled. Discussed GBS for next visit. RTC 1 week. Flowsheet Date 08/17/2025 El Score Blood Edema Fundus Height Fundus Units Glucose Ketones Leukocytes Nitrite Labor Signs Protein Cervic Dilation Cervic Effacement Cervic Station 2cm 50% -2 Type Weight in lbs Pre/Post Dialysis Refused Weight 151.328159041746 BP Diastolic BP Location Tested BP Systolic BP Type 77 L arm 131 sitting Fetus Heart Rate Present A 130 Fetus Movement A Yes Comments Doing well, good movem ent. No cramping or bleeding. Scheduled preadmission. GBS collected. RTC 1 week. Flowsheet Date 08/22/2025 El Score Blood Edema Fundus Height Fundus Units Glucose Ketones Leukocytes Nitrite Labor Signs Protein Cervic Dilation Cervic Effacement Cervic Station 2cm 50% -2 Type Weight in lbs Pre/Post Dialysis Refused Weight 157.493514544507 BP Diastolic BP Location Tested BP Systolic BP Type 84 L arm 124 sitting Fetus Heart Rate Present A 150 Fetus Movement A Yes Comments Baby active. No cramping or bleeding. Increased discharge. Itching on bottom of feet, will check ICP labs today. GBS negative. RTC 1 week. Menstrual History Last Menstrual Date Menses Monthly On Bcp Conception Prior Menses Frequency Hcg Plus Date Menarche Onset Age 0312/05/2024 true Delivery Information Delivery Date Delivery Type Labor Anesthesia Weeks Gestation Incision Type Labor Labor Length Hrs Delivered By Post Complications Tubal Sterilization Discharge Date Comments Discharge Information Feeding Method Contraceptive Method Maternal HG B and HCT Levels
--- NOTE | 2025-08-23 23:11 | LDADM ---
This patient, Lucita Vazquez, was admitted to Labor/Delivery/Recovery 105 on 08/23/25 at 22:39. Plans for labor, pain management and were discussed with patient. Patient/family oriented to hospital policies and general routines including ID bracelet, bed and alarms, visiting hours, pain management, procedures, bathroom and other care routines, personal items, smoking policy, room service/diet and guest tray routines, security routines, and visiting hours. Patient/Family are encouraged to report perceived risks to care and to ask questions if they do not understand what they are told or what they should do. See OBIX for further documentation.
--- OUTSIDE RECORDS SUMMARY | 2025-08-23 23:11 | XMS_ITS | Continuity of Care Document ---
Author Organization [facility] [place] Address [address] [place] [address] Care Team Providers Care Gameroom Technician Name Role Phone CATARINAMILANO Primary Care Provider Assessment No assessment recorded. Plan of Treatment Reminders Order Date Submit Date Provider Last Modified By Organization Details Last Modified Time Details Appointments OB ROUTINE 2024 03:45P Kath MALDONADO MD Not available Not available [...] Not Available Lalita jasso [address], [place], [address], 03/09/2025 17:04:01 03/09/20 25 03/09/2025 [UNIT Y] ANEUP LOIDY NIPT 22Q11.2 microdeletio n LOW RISK <1 in 10,000 normal Not Available Aníbal persaud [address], [place], [address], 03/09/2025 17:04:01 03/09/20 25 03/09/2025 [UNIT Y] ANEUP LOIDY NIPT sex chromosome aneuploidy NOT DETECT ED normal Not Available [facility] [address], [place], [address], 03/09/2025 17:04:01 03/09/20 25 03/09/2025 [UNIT Y] ANEUP LOIDY NIPT monosomy X LOW RISK <1 in 10,000 normal Not Available [facility] [address], [place], [address], 03/09/2025 17:04:01 03/09/20 25 03/09/2025 [UNIT Y] ANEUP LOIDY NIPT trisomy 13 LOW RISK <1 in 10,000 normal Not Available [facility] [address], [place], [address], 03/09/2025 17:04:01 03/09/20 25 03/09/2025 [UNIT Y] ANEUP LOIDY NIPT trisomy 18 LOW RISK <1 in 10,000 normal Not Available [facility] [address], [place], [address], 03/09/2025 17:04:01 03/09/20 25 03/09/2025 [UNIT Y] ANEUP LOIDY NIPT trisomy 21 LOW RISK <1 in 10,000 normal Not Available [facility] [address], [place], [address], 03/09/2025 17:04:01 03/09/20 25 03/09/2025 [UNIT Y] ANEUP LOIDY NIPT sex MALE normal Not Available [facility] [address], [place], [address], 03/09/2025 17:04:01 03/09/20 25 03/09/2025 [UNIT Y] ANEUP LOIDY NIPT gestation SINGLE TON normal Not Available [facility] [address], [place], [address], 03/09/2025 17:04:01 03/09/20 25 03/09/2025 [UNIT Y] ANEUP LAKHWINDER NIPT for detailed report, see pdf See PDF normal Not Available [facility] [address], [place], [address], 03/09/2025 17:04:01 03/02/20 25 03/02/2025 CBC W/DIF F WBC 12.0 10'3/ uL 3.5-10 .5 high Not Available [facility] (Lab) [address], [place], [address], 03/03/2025 12:10:29 03/02/20 25 03/02/2025 CBC W/DIF F RBC 4.15 10'6/ uL (based on docume nted legal sex) 3.80-5 .20 Not Available [facility] (Lab) [address], [place], [address], 03/03/2025 12:10:29 03/02/20 25 03/02/2025 CBC W/DIF F HGB 12.9 g/dL (based on docume nted legal sex) 11.6-1 5.4 Not Available [facility] (Lab) [address], [place], [address], 03/03/2025 12:10:29 03/02/20 25 03/02/2025 CBC W/DIF F HCT 37.6 % (based on docume nted legal sex) 34.0-4 5.0 Not Available [facility] (Lab) [address], [place], [address], 03/03/2025 12:10:29 03/02/20 25 03/02/2025 CBC W/DIF F MCV 90.6 fL 80.0-9 9.0 Not Available [facility] (Lab) [address], [place], [address], 03/03/2025 12:10:29 03/02/20 25 03/02/2025 CBC W/DIF F MCH 31.1 pg 27.0-3 4.0 Not Available [facility] (Lab) [address], [place], [address], 03/03/2025 12:10:29 03/02/20 25 03/02/2025 CBC W/DIF F MCHC 34.3 g/dL 32.0-3 5.5 Not Available [facility] (Lab) [address], [place], [address], 03/03/2025 12:10:29 03/02/20 25 03/02/2025 CBC W/DIF F RDW 11.9 % 11.0-1 5.0 Not Available [facility] (Lab) [address], [place], [address], 03/03/2025 12:10:29 03/02/20 25 03/02/2025 CBC W/DIF F plt 344 10'3/ uL 150-40 0 Not Available [facility] (Lab) [address], [place], [address], 03/03/2025 12:10:29 03/02/20 25 03/02/2025 CBC W/DIF F MPV 9.8 fL 8.8-12 .1 Not Available [facility] (Lab) [address], [place], [address], 03/03/2025 12:10:29 03/02/2003/02/2025 CBC W/DIF F NRBC's 0.0 % 0.0 Not Available [facility] (Lab) [address], [place], [address], 03/03/2025 12:10:29 03/02/20 25 03/02/2025 CBC W/DIF F absolute NRBCs 0.0 10'3/ uL no refere nce range establ ished Not Available [facility] (Lab) [address], [place], [address], 03/03/2025 12:10:29 03/02/20 25 03/02/2025 CBC W/DIF F neutrophils 74.6 % 34.0-7 3.0 high Not Available [facility] (Lab) [address] [place], [address], 03/03/2025 12:10:29 03/02/20 25 03/02/2025 CBC W/DIF F lymphocytes 19.0 % 15.0-5 0.0 Not Available [facility] (Lab) [address] [place], [address], 03/03/2025 12:10:29 03/02/20 25 03/02/2025 CBC W/DIF F monocytes 5.0 % 1.0-15 .0 Not Available [facility] (Lab) [address] [place], [address], 03/03/2025 12:10:29 03/02/20 25 03/02/2025 CBC W/DIF F eosinophils 0.7 % 0.0-8. 0 Not Available [facility] (Lab) [address] [place], [address], 03/03/2025 12:10:29 03/02/20 25 03/02/2025 CBC W/DIF F basophils 0.4 % 0.0-2. 0 Not Available [facility] (Lab) [address] [place], [address], 03/03/2025 12:10:29 03/02/20 25 03/02/2025 CBC W/DIF [...] separ ately if prese nt. Not Available [facility] (Lab) [address] [place], [address], 03/03/2025 12:10:29 03/02/20 25 03/02/2025 CBC W/DIF F absolute neutrophils 8.9 10'3/ uL 1.5-8. 0 high Not Available [facility] (Lab) [address], [place], [address], 03/03/2025 12:10:29 03/02/20 25 03/02/2025 CBC W/DIF F absolute lymphocytes 2.3 10'3/ uL 1.0-4. 0 Not Available [facility] (Lab) [address], [place], [address], 03/03/2025 12:10:29 03/02/20 25 03/02/2025 CBC W/DIF F absolute monocytes 0.6 10'3/ uL 0.2-1. 0 Not Available [facility] (Lab) [address], [place], [address], 03/03/2025 12:10:29 03/02/20 25 03/02/2025 CBC W/DIF F absolute eosinophils 0.1 10'3/ uL 0.0-0. 6 Not Available [facility] (Lab) [address], [place], [address], 03/03/2025 12:10:29 03/02/20 25 03/02/2025 CBC W/DIF F absolute basophils 0.1 10'3/ uL 0.0-0. 3 Not Available [facility] (Lab) [address], [place], [address], 03/03/2025 12:10:29 03/02/20 25 03/02/2025 CBC W/DIF F absolute immature granulocytes 0.0 10'3/ uL 0.00-0 .10 Refer ence range s for nonbi nary/ inter sex or unspe cifie d gende r patie nts have not been estab lishe d. [facility]as e [facility] for range s estab lishe d for cisge nder patie nts and evalu ate in the clini adam raymond xt of the indiv idual patie nt: https ://alejandro gonzalez book. nm.or g/gen derx Not Available [facility] (Lab) [address], [place], [address], 03/03/2025 12:10:29 03/02/20 25 03/02/2025 HIV 1/2 ANTIG EN/AN TIBOD Y, REFLE X CONFI RMATI ON HIV antigen/anti body Nonrea ctive nonrea ctive HIV-1 antig en and HIV-1 /HIV- 2 antib odies were not detec viktor. No labor atory evide nce of HIV infec tion. Not Available [facility] (Lab) [address], [place], [address], 03/03/2025 12:10:29 03/02/2003/02/2025 HEPAT ITIS B SURFA CE ANTIG EN hepatitis B surface antigen Non-re active non-re active This assay was perfo rmed using [employer] ratio n reage nts and test kits. Value s obtai celina with other assay metho ds or kits canno t be used inter cano eably . Not Available [facility] (Lab) [address], [place], [address], 03/03/2025 12:10:30 03/02/20 25 03/02/2025 HEPAT ITIS C ANTIB SYD SCREE N, REFLE X TO CONFI RMATI ON hepatitis C antibody Non-re active non-re active Antib odies to HCV Not Detec viktor, does not exclu de the possi bilit y of expos ure to HCV. Not Available [facility] (Lab) [address], [place], [address], 03/03/2025 12:10:30 03/02/2003/02/2025 TSH, REFLE X FREE T4 TSH 2.17 uIU/m L 0.30-5 .33 Not Available [facility] (Lab) [address], [place], [address], 03/03/2025 12:10:30 03/02/20 25 03/02/2025 RUBEL LA IGG ANTIB SYD, QUANT rubella antibodies, IgG Reacti ve reacti ve Not Available [facility] (Lab) [address], [place], [address], 03/03/2025 12:10:31 03/02/20 25 03/02/2025 RUBEL LA IGG ANTIB SYD, QUANT rubella antibodies, IgG quant 20.9 IU/mL >=10 Non-r eacti ve (Non- Immun e) <10 IU/mL React gustavo (Immu ne) > or = 10 IU/mL Not Available [facility] (Lab) [address], [place], [address], 03/03/2025 12:10:31 03/02/20 25 03/02/2025 TYPE/ RH/SC REEN ABO/Rh type A POS Not Available [facility] (Lab) [address] [place], [address], 03/03/2025 12:10:31 03/02/20 25 03/02/2025 TYPE/ RH/SC REEN antibody screen NEG Not Available [facility] (Lab) [address], [place], [address], 03/03/2025 12:10:31 03/02/20 25 03/02/2025 TYPE/ RH/SC REEN exp date 2024 23:59 Not Available [facility] (Lab) [address], [place], [address], 03/03/2025 12:10:31 03/02/20 25 03/02/2025 HEMOG LOBIN [...] >8.0% Actio n sugge sted Not Available [facility] (Lab) [address], [place], [address], 03/03/2025 12:10:31 03/02/20 25 03/02/2025 RPR SCREE N, REFLE X TITER /CONF IRMAT ION RPR qualitative Nonrea ctive nonrea ctive Not Available [facility] (Lab) [address], [place], [address], 03/03/2025 12:10:32 05/27/20 25 05/27/2025 CULTU RE: URINE result report SEE RESULT S BELOW Test: Cultu re: Urine Speci men Sourc e: Urine - Clean Catch Speci men Type: Urine Speci men Date: 2024 1053 Resul t Date: 2024 2233 Resul t Statu s: Final resul t Abnor mal: No Resul ting Lab: [facility] [address] [facility] [address] Tel: CULTU RE ----- ----- ----- --- No growt h in 1 day (dete ction level of 10,00 0 colon ies / ml.) Not Available [facility] (Lab) [address], [place], [address], 05/28/2025 23:37:55 06/24/20 25 06/24/2025 HEMAT OCRIT (HCT) HCT 32.6 % (based on docume nted legal sex) 34.0-4 5.0 low Not Available [facility] (Lab) [address], [place], [address], 06/25/2025 14:14:21 06/24/20 25 06/24/2025 HEMOG LOBIN (HGB) HGB 10.3 g/dL (based on docume nted legal sex) 11.6-1 5.4 low Not Available [facility] (Lab) [address], [place], [address], 06/25/2025 14:14:22 06/24/20 25 06/24/2025 GTT - GESTA DHAVAL L SCREE N, ACOG OB glucose, 1 hour screen 70 mg/dL 70-135 Not Available [facility] (Lab) [address], [place], [address], 06/25/2025 14:14:22 06/24/20 25 06/24/2025 HIV 1/2 ANTIG EN/AN TIBOD Y, REFLE X CONFI RMATI ON HIV antigen/anti body Nonrea ctive nonrea ctive HIV-1 antig en and HIV-1 /HIV- 2 antib odies were not detec viktor. No labor atory evide nce of HIV infec tion. Not Available [facility] (Lab) [address], [place], [address], 06/25/2025 14:14:22 06/24/2006/24/2025 RPR SCREE N, REFLE X TITER /CONF IRMAT ION RPR qualitative Nonrea ctive nonrea ctive Not Available [facility] (Lab) [address], [place], [address], 06/25/2025 14:14:23 03/02/20 25 03/02/2025 US, obste tric, nucha l trans lucen cy No observ ation record ed. [facility] [address], [place], [address], 03/02/2025 17:50:41 03/02/20 25 03/02/2025 US, obste tric, 1st trime ster No observ ation record ed. [facility] [address], [place], [address], 03/02/2025 17:50:51 03/02/20 25 03/02/2025 US, obste tric, nucha l trans lucen cy No observ ation record ed. [facility] [address], [place], [address], 03/02/2025 16:58:55 04/26/20 25 04/26/2025 US, obste tric, 2nd trime ster No observ ation record ed. [email or web address] [address], [place], [address], 04/27/2025 09:50:11 04/26/20 25 04/26/2025 US, obste tric, 2nd or 3rd trime ster No observ ation record ed. [email or web address] [place] [address], [place], [address], 04/26/2025 18:15:52 05/27/20 25 05/27/2025 US, obste tric, follo w-up No observ ation record ed. [facility] [address], [place], [address], 05/27/2025 14:03:34 05/27/20 25 05/27/2025 US, obste tric, follo w-up No observ ation record ed. [address], [place], [address], 05/27/2025 14:07:05 07/22/20 25 07/22/2025 US, obste tric, follo w-up No observ ation record ed. [facility] [address], [place], [address], 07/22/2025 13:46:42 07/22/20 25 07/22/2025 US, obste tric, follo w-up No observ ation record ed. [email or web address] [address], [place], [address], 08/08/2025 11:16:18 Result Notes None recorded. Problems Name Problem SNOMED Code Status Onset Date Resolution Date Notes Provider Name and Address Organization Details Recorded Time Family history of Factor V Leiden mutation 8417546646 [id number] Completed testing negative 08/06 Megan Kwan [facility], [facility] 4 13:41:32 Placenta circumva llata 8327664 Completed serial growth Megan Kwan [facility], [facility] 4 13:41:32 Pregnanc y 77621803 Completed 202202/09/2024 SHAR Montoya [facility] 5 16:16:10 Pregnanc y 28836981 Active 2024 SHRA Montoya [facility] 5 16:16:09 Placenta circumva llata 8733153 Active 2024 32 week growth US SHANI MALDONADO MD [address], [place], [address], [facility] 5 18:25:20 Placenta circumva llata 1927544 Active 2024 32 week growth US SHANI MALDONADO MD [address], [place], [address], [facility] 5 18:25:20 Problem Notes None recorded. Procedures Surgical History Date Name Laterality Status Provider Name and Address Organization Details Recorded Time 04/24/2023 Date of Last Pap Smear completed Karime Galvin [facility] 02/02/2025 17:02:43 Imaging Results None [...] and Address Organization Details Last Updated DateTime 08/10/2025 92655.040 24 g 26.1 kg/m2 162.56 cm 128/78 mm[Hg] Valerie Ortiz [facility] 08/10/2025 10:28:04 Social History Question Answer Notes LastModified by Organizat ion Details LastModified Time Tobacco Smoking Status Never Smoker Shirin chapman [facility] 10/01/2023 17:03:25 Are You Blind [...] Or The Highest Degree You Have Received? 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 Occasional Information not available 11/28/2023 Mental Status Question Answer Note LastModified by Organization D etails LastModified Time Do you feel stressed (tense, restless, nervous, or anxious, or unable to sleep at night)? [id number] Information not available 09/03/2023 Family History Relationship Description Onset Age of this Age Resolved Age Notes LastModified by Organization Details LastModified Time Maternal Aunt Anemia [email or web address] Not avail able 07/03/2023 15:51:07 Maternal Uncle Heart disease [email or web address] Not available 2022 15:51:07 Mother Disorder of thyroid gland [email or web address] Not available 2023 16:37:13 Mother Anemia [email or web address] Not available 01/30/2024 16:37:13 Maternal Grandmother Heart disease [email or web address] Not available 2023 16:37:13 Medical History Condition Response Allergies (Food, seasonal, environmental ) N Other N Breast Cancer N Drug/Latex Allergies/Reactions N Blood Transfusion N Dermatologic Disorders N Lung Disease N Defects or Inherited Disease N Breast Problem N Gestational Diabetes N Hematologic disorders N Anesthesia Complications N History of STI N Deep Vein Thrombosis N Polycystic ovary syndrome N Anxiety Disorder Y Autoimmune disease N Arthritis N Infertility N Polyps N Acid Reflux (GERD) N History of abnormal pap N Cancer N Stroke N Varicosities N Neurologic/Epilepsy N Endometriosis N High Cholesterol N Headaches N Fibromyalgia N Kidney Disease N Heart Problems N Kidney or Bladder Problems N Thyroid Problems N GI Problems N Eating Disorder N Anemia N Art (IVF or FET) N Psychiatric Illness N Ovarian Cancer N Diabetes N Pulmonary (TB, Asthma) N Hepatitis/Liver Disease N No Past Medical History N Eczema N Urinary Tract Infection N Abuse/Domestic Violence N Asthma N Trauma/Violence N Depression/ depression Y Heart Disease N Pre-Eclampsia N Hypertension N Osteoporosis N Thrombophilias N Gynecological History Statement/Question Response Abnormal Pap [...] ICD10 Code Diagnosis IMO Codes Diagnosis Note [id number] SHANI MALDONADO MD [place] [address] [address] 07/22/2025 10:16:16 07/22/2025 11:13:21 Placenta circumvallata 6537227 O43.113 Z03.74 Z3A.32 1402057 [id number] SHANI MALDONADO MD [place] [address] [address] 07/22/2025 10:17:41 07/22/2025 11:28:37 Placenta circumvallata 6156142 O43.649 5900096 Gestation period, 32 weeks 1346679 Z3A.32 5992575 [id number] SHANI MALDONADO MD [place] [address] [address] 08/10/2025 10:09:41 08/10/2025 10:43:57 care status 538862416 Z34.83 [id number] Health Concerns Section Related Observation LastModified by Organization Detai ls LastModified Time None Recorded Concern Status LastModified by Organization Details LastModified Time None Recorded Payers Encounter Date Sequence Insurance Name Policy Number Policy Monteiro Covered Member ID Monteiro Member ID Guarantor Name 08/10/2025 1 [employer] - [employer] [id number] (PPO) [id number] Jeff Vazquez [id number] Lucita Vazquez Notes Date Note Type Note Provider Name and Address Organization Details Recorded Time 08/10/2025 text/html Generic HPI TemplateReported by Patient SHANI MALDONADO MD [address], [place], [address], [facility] 08/10/2025 10:42:47 OBGyn Episode Ob Episode Information Episode Created Date Number of Fetuses Patient Bloodtype Patient rh Status Prepregnancy Weight lbs Domestic Partner Domestic Partner Phone Father Name Transformer Inspector Status 03/02/20 1 A Positive OPEN Fetus Data First Name Last Name Admitted to NICU Weight (g) Sex Living Outcome Pediatric Complications Fetus ID Race Codes Race Delivery Type [id number] Problems Problem Notes Problem Name Start Date End Date Resolution Snomed Code Not e Placenta circumvallata 04/26/2025 291931 0 32 week growth US Rufino Calculation [...] Date Ultra Sound Latest Days Gestation 0 [email or web address] 03/02/2025 09/11/19 26 0 Pre- Flowsheet Flowsheet Date 03/02/2025 El Score Blood [...] Weight in lbs Pre/Post Dialysis Refused Weight 129.05319173424 BP Diastolic BP Location Tested BP Systolic BP Type 79 L arm 122 sitting Fetus Heart Rate Present Fetus Movement A No Comments Patient presents to [facility] care. Hx of anxiety/depression, on Wellbutrin. otherwise uncomplicated. No nausea or cramping. NT/NB wnl today, desires NIPT. Will draw today with new OB labs. RTC 4 weeks for routine care. Flowsheet Date 03/30/2025 El Score Blood Edema Fundus Height Fundus Units Glucose Ketones Leukocytes Nitrite Labor Signs Protein Cervic Dilation Cervic Effacement Cervic Station Type Weight in lbs Pre/Post Dialysis Refused Weight 130.850579725108 BP Diastolic BP Location Tested BP Systolic [...] Weight in lbs Pre/Post Dialysis Refused Weight 135.128964299354 BP Diastolic BP Location Tested BP Systolic [...] Weight in lbs Pre/Post Dialysis Refused Weight 137.576846020000 BP Diastolic BP Location Tested BP Systolic BP Type 72 L arm 108 sitting Fetus Heart Rate Present A 135 Fetus Movement A Yes Comments Doing well, getting over sin us infection. Good movement. No cramping or bleeding. EFw 68%, normal fluid. Repeat at 32 weeks. Going to [place] on Friday, discussed travel precautions. RTC 4 weeks. Flowsheet Date 06/24/2025 El Score Blood Edema Fundus Height Fundus Units Glucose Ketones Leukocytes Nitrite Labor Signs Protein Cervic Dilation Cervic Effacement Cervic Station Type Weight in lbs Pre/Post Dialysis Refused Weight 142.649153323270 BP Diastolic BP Location Tested BP Systolic [...] Type Weight in lbs Pre/Post Dialysis Refused 144.062077022215 BP Diastolic BP Location Tested BP Systolic [...] Type Weight in lbs Pre/Post Dialysis Refused 147.454507342867 BP Diastolic BP Location Tested BP Systolic [...] Type Weight in lbs Pre/Post Dialysis Refused 152.202821832944 BP Diastolic BP Location Tested BP Systolic [...] Weight in lbs Pre/Post Dialysis Refused Weight 151.851326046207 BP Diastolic BP Location Tested BP Systolic [...] Weight in lbs Pre/Post Dialysis Refused Weight 157.348363504263 BP Diastolic BP Location Tested BP Systolic [...]
--- OUTSIDE RECORDS SUMMARY | 2025-08-23 23:11 | XMS_ITS | Continuity of Care Document ---
Author Organization [facility] Address [address] [place] [address] [place] [address] Care Team Providers Care Churner Name Role Phone LESLY ELMORE Primary Care Provider [phone] Assessment No assessment recorded. Plan of Treatment Reminders Order Date Submit Date Provider Last Modified By Organization Details Last Modified Time Details Appointments OB ROUTINE 2024 03:45P Kath MALDONADO MD Not available Not available Not available INDUCTION 2024 05:00A Kath MALDONADO MD Not available Not available Not available Lab drug screen, urine 2024 025 [facility], [address], [place], [address], 05/27/2025 12:33:37 culture, urine 2024 025 [facility] (Lab), [address], [place], [address], 05/28/2025 23:37:55 RPR (rapid plasma reagin), serum [address] (Lab), [address], [place], [address], 06/21/2025 18:51:30 glucose tolerance test, gestation al panel 2024 025 [facility] (Lab), [address], [place], [address], 06/25/2025 14:14:22 hematocri t, blood 2024 025 [facility] (Lab), [address] [facility], [place], [address], 06/25/2025 14:14:22 hemoglobi n (Hb), blood 2024 025 [facility] (Lab), [address] [facility], [place], [address], 06/25/2025 14:14:22 HIV 1+2 AB + HIV 1 p24 Ag, qualitati ve immunoass ay, serum 2024 025 [facility] (Lab), [address] [facility], [place], [address], 06/25/2025 14:14:22 Referral None recorded. Procedures None recorded. Surgeries None recorded. Imaging None recorded. Medication Orders None recorded. Patient TargetsNo targets recorded. Patient InstructionsNo instructions recorded. Reason for Referral None Reported. Results Created Date Observation Date Name Description Value Unit Range Abnormal Flag Note LastModifiedBy Organization Detail LastModifiedTime 03/09/2003/09/2025 [UNIT Y] ANEUP LOIDY NIPT fraction 9.4% normal Not Available [facility] [address], [place], [address], 03/09/2025 17:04:01 03/09/20 25 03/09/2025 [UNIT Y] ANEUP LOIDY NIPT 22Q11.2 microdeletio n LOW RISK <1 in 10,000 normal Not Available [facility] [address], [place], [address], 03/09/2025 17:04:01 03/09/20 25 03/09/2025 [UNIT Y] ANEUP LOIDY NIPT sex chromosome aneuploidy NOT DETECT ED normal Not Available [facility] [address], [place], [address], 03/09/2025 17:04:01 03/09/20 25 03/09/2025 [UNIT Y] ANEUP LOIDY NIPT monosomy X LOW RISK <1 in 10,000 normal Not Available [facility] [address], [place], [address], 03/09/2025 17:04:01 03/09/20 25 03/09/2025 [UNIT Y] ANEUP LOIDY NIPT trisomy 13 LOW RISK <1 in 10,000 normal Not Available [facility] [address], [place], [address], 03/09/2025 17:04:01 03/09/20 25 03/09/2025 [UNIT Y] ANEUP LOIDY NIPT trisomy 18 LOW RISK <1 in 10,000 normal Not Available [facility] [address], [place], [address], 03/09/2025 17:04:01 03/09/20 25 03/09/2025 [UNIT Y] ANEUP LOIDY NIPT trisomy 21 LOW RISK <1 in 10,000 normal Not Available [facility] [address], [place], [address], 03/09/2025 17:04:01 03/09/20 25 03/09/2025 [UNIT Y] ANEUP LOIDY NIPT sex MALE normal Not Available [facility] [address], [place], [address], 03/09/2025 17:04:01 03/09/20 25 03/09/2025 [UNIT Y] ANEUP LOIDY NIPT gestation SINGLE TON normal Not Available [facility] [address], [place], [address], 03/09/2025 17:04:01 03/09/20 25 03/09/2025 [UNIT Y] ANEUP LOIDY NIPT for detailed report, see pdf See PDF normal Not Available [facility] [address], [place], [address], 03/09/2025 17:04:01 03/02/20 25 03/02/2025 CBC W/DIF F WBC 12.0 10'3/ uL 3.5-10 .5 high Not Available [facility] (Lab) [address] [facility], [place], [address], 03/03/2025 12:10:29 03/02/20 25 03/02/2025 CBC W/DIF F RBC 4.15 10'6/ uL (based on docume nted legal sex) 3.80-5 .20 Not Available [facility] (Lab) [address] [facility], [place], [address], 03/03/2025 12:10:29 03/02/20 25 03/02/2025 CBC W/DIF F HGB 12.9 g/dL (based on docume nted legal sex) 11.6-1 5.4 Not Available [facility] (Lab) [address] [facility], [place], [address], 03/03/2025 12:10:29 03/02/20 25 03/02/2025 CBC W/DIF F HCT 37.6 % (based on docume nted legal sex) 34.0-4 5.0 Not Available [facility] (Lab) [address] [facility], [place], [address], 03/03/2025 12:10:29 03/02/20 25 03/02/2025 CBC W/DIF F MCV 90.6 fL 80.0-9 9.0 Not Available [facility] (Lab) [address] [facility], [place], [address], 03/03/2025 12:10:29 03/02/20 25 03/02/2025 CBC W/DIF F MCH 31.1 pg 27.0-3 4.0 Not Available [facility] (Lab) [address] [place], [address], 03/03/2025 12:10:29 03/02/20 25 03/02/2025 CBC W/DIF F MCHC 34.3 g/dL 32.0-3 5.5 Not Available [facility] (Lab) [address] [place], [address], 03/03/2025 12:10:29 03/02/20 25 03/02/2025 CBC W/DIF F RDW 11.9 % 11.0-1 5.0 Not Available [facility] (Lab) [address] [facility], [place], [address], 03/03/2025 12:10:29 03/02/20 25 03/02/2025 CBC W/DIF F plt 344 10'3/ uL 150-40 0 Not Available [facility] (Lab) [address] [facility], [place], [address], 03/03/2025 12:10:29 03/02/20 25 03/02/2025 CBC W/DIF F MPV 9.8 fL 8.8-12 .1 Not Available [facility] (Lab) [address] [facility], [place], [address], 03/03/2025 12:10:29 03/02/20 25 03/02/2025 CBC W/DIF F NRBC's 0.0 % 0.0 Not Available [facility] (Lab) [address] [facility], [place], [address], 03/03/2025 12:10:29 03/02/20 25 03/02/2025 CBC W/DIF F absolute NRBCs 0.0 10'3/ uL no refere nce range establ ished Not Available [facility] (Lab) [address] [place], [address], 03/03/2025 12:10:29 03/02/20 25 03/02/2025 CBC W/DIF F neutrophils 74.6 % 34.0-7 3.0 high Not Available [facility] (Lab) [address] [place], [address], 03/03/2025 12:10:29 03/02/20 25 03/02/2025 CBC W/DIF F lymphocytes 19.0 % 15.0-5 0.0 Not Available [facility] (Lab) [address] [facility], [place], [address], 03/03/2025 12:10:29 03/02/20 25 03/02/2025 CBC W/DIF F monocytes 5.0 % 1.0-15 .0 Not Available [facility] (Lab) [address] [facility], [place], [address], 03/03/2025 12:10:29 03/02/20 25 03/02/2025 CBC W/DIF F eosinophils 0.7 % 0.0-8. 0 Not Available [facility] (Lab) [address] [place], [address], 03/03/2025 12:10:29 03/02/20 25 03/02/2025 CBC W/DIF F basophils 0.4 % 0.0-2. 0 Not Available [facility] (Lab) [address] [facility], [place], [address], 03/03/2025 12:10:29 03/02/20 25 03/02/2025 CBC W/DIF [...] separ ately if prese nt. Not Available [facility] (Lab) [address] [place], [address], 03/03/2025 12:10:29 03/02/20 25 03/02/2025 CBC W/DIF F absolute neutrophils 8.9 10'3/ uL 1.5-8. 0 high Not Available [facility] (Lab) [address] [facility], [place], [address], 03/03/2025 12:10:29 03/02/20 25 03/02/2025 CBC W/DIF F absolute lymphocytes 2.3 10'3/ uL 1.0-4. 0 Not Available [facility] (Lab) [address] [facility], [place], [address], 03/03/2025 12:10:29 03/02/20 25 03/02/2025 CBC W/DIF F absolute monocytes 0.6 10'3/ uL 0.2-1. 0 Not Available [facility] (Lab) [address] [facility], [place], [address], 03/03/2025 12:10:29 03/02/20 25 03/02/2025 CBC W/DIF F absolute eosinophils 0.1 10'3/ uL 0.0-0. 6 Not Available [facility] (Lab) [address] [facility], [place], [address], 03/03/2025 12:10:29 03/02/20 25 03/02/2025 CBC W/DIF F absolute basophils 0.1 10'3/ uL 0.0-0. 3 Not Available [facility] (Lab) [address] [facility], [place], [address], 03/03/2025 12:10:29 03/02/20 25 03/02/2025 CBC W/DIF F absolute immature granulocytes 0.0 10'3/ uL 0.00-0 .10 Refer ence range s for nonbi nary/ inter sex or unspe cifie d gende r patie nts have not been estab lishe d. Pleas e refer to the dio reyes table for range s estab lishe d for cisge nder patie nts and evalu ate in the clini adam raymond xt of the indiv idual patie nt: https :[email or web address] gonzalez book. nm.or g/gen derx Not Available [facility] (Lab) [address], [place], [address], 03/03/2025 12:10:29 03/02/20 25 03/02/2025 HIV 1/2 ANTIG EN/AN TIBOD Y, REFLE X CONFI RMATI ON HIV antigen/anti body Nonrea ctive nonrea ctive HIV-1 antig en and HIV-1 /HIV- 2 antib odies were not detec viktor. No labor atory evide nce of HIV infec tion. Not Available [facility] (Lab) [address] [facility], [place], [address], 03/03/2025 12:10:29 03/02/2003/02/2025 HEPAT ITIS B SURFA CE ANTIG EN hepatitis B surface antigen Non-re active non-re active This assay was perfo rmed using [employer] ratio n reage nts and test kits. Value s obtai celina with other assay metho ds or kits canno t be used inter cano eably . Not Available [facility] (Lab) [address] [facility], [place], [address], 03/03/2025 12:10:30 03/02/20 25 03/02/2025 HEPAT ITIS C ANTIB SYD SCREE N, REFLE X TO CONFI RMATI ON hepatitis C antibody Non-re active non-re active Antib odies to HCV Not Detec viktor, does not exclu de the possi bilit y of expos ure to HCV. Not Available [facility] (Lab) [address], [place], [address], 03/03/2025 12:10:30 03/02/2003/02/2025 TSH, REFLE X FREE T4 TSH 2.17 uIU/m L 0.30-5 .33 Not Available [facility] (Lab) [address] [place], [address], 03/03/2025 12:10:30 03/02/20 25 03/02/2025 RUBEL LA IGG ANTIB SYD, QUANT rubella antibodies, IgG Reacti ve reacti ve Not Available [facility] (Lab) [address] [facility], [place], [address], 03/03/2025 12:10:31 03/02/20 25 03/02/2025 RUBEL LA IGG ANTIB SYD, QUANT rubella antibodies, IgG quant 20.9 IU/mL >=10 Non-r eacti ve (Non- Immun e) <10 IU/mL React gustavo (Immu ne) > or = 10 IU/mL Not Available [facility] (Lab) [address] [facility], [place], [address], 03/03/2025 12:10:31 03/02/20 25 03/02/2025 TYPE/ RH/SC REEN ABO/Rh type A POS Not Available [facility] (Lab) [address] [facility], [place], [address], 03/03/2025 12:10:31 03/02/20 25 03/02/2025 TYPE/ RH/SC REEN antibody screen NEG Not Available [facility] (Lab) [address] [facility], [place], [address], 03/03/2025 12:10:31 03/02/20 25 03/02/2025 TYPE/ RH/SC REEN exp date 2024 23:59 Not Available [facility] (Lab) [address] [facility], [place], [address], 03/03/2025 12:10:31 03/02/20 25 03/02/2025 HEMOG LOBIN A1C hemoglobin A1C 5.0 % 4.0-5. 6 The Ameri can Diabe elvis [employer]oc iatio n recom mends that a prima ry goal of thera py erick hardin be a HBA1C of < 7% and that physi cians erick d reeva luate the treat ment regim en in patie nts with HBA1C value s consi stent ly > 8%. <5.7% Camryn l 5.7 - 6.4% Incre ased risk for diabe elvis >=6.5 % Diagn ostic of diabe elvis <7.0% Goal of thera py >8.0% Actio n sugge sted Not Available [facility] (Lab) [address] [facility], [place], [address], 03/03/2025 12:10:31 03/02/20 25 03/02/2025 RPR SCREE N, REFLE X TITER /CONF IRMAT ION RPR qualitative Nonrea ctive nonrea ctive Not Available [facility] (Lab) [address] [facility], [place], [address], 03/03/2025 12:10:32 05/27/20 25 05/27/2025 CULTU RE: URINE result report SEE RESULT S BELOW Test: Cultu re: Urine Speci men Sourc e: Urine - Clean Catch Speci men Type: Urine Speci men Date: 2024 1053 Resul t Date: 2024 2233 Resul t Statu s: Final resul t Abnor mal: No Resul ting Lab: [facility] [address] [facility] [address] Tel: CULTU RE ----- ----- ----- --- No growt h in 1 day (dete ction level of 10,00 0 colon ies / ml.) Not Available [facility] (Lab) [address] [facility], [place], [address], 05/28/2025 23:37:55 06/24/20 25 06/24/2025 HEMAT OCRIT (HCT) HCT 32.6 % (based on docume nted legal sex) 34.0-4 5.0 low Not Available [facility] (Lab) [address] [facility], [place], [address], 06/25/2025 14:14:21 06/24/20 25 06/24/2025 HEMOG LOBIN (HGB) HGB 10.3 g/dL (based on docume nted legal sex) 11.6-1 5.4 low Not Available [facility] (Lab) [address] [facility], [place], [address], 06/25/2025 14:14:22 06/24/20 25 06/24/2025 GTT - GESTA DHAVAL L SCREE N, ACOG OB glucose, 1 hour screen 70 mg/dL 70-135 Not Available [facility] (Lab) [address] [facility], [place], [address], 06/25/2025 14:14:22 06/24/20 25 06/24/2025 HIV 1/2 ANTIG EN/AN TIBOD Y, REFLE X CONFI RMATI ON HIV antigen/anti body Nonrea ctive nonrea ctive HIV-1 antig en and HIV-1 /HIV- 2 antib odies were not detec viktor. No labor atory evide nce of HIV infec tion. Not Available [facility] (Lab) [address] [facility], [place], [address], 06/25/2025 14:14:22 06/24/20 25 06/24/2025 RPR SCREE N, REFLE X TITER /CONF IRMAT ION RPR qualitative Nonrea ctive nonrea ctive Not Available [facility] (Lab) [address] [facility], [place], [address], 06/25/2025 14:14:23 03/02/20 25 03/02/2025 US, obste tric, nucha l trans lucen cy No observ ation record ed. [facility] [address] [facility] [address], [place], [address], 03/02/2025 17:50:41 03/02/20 25 03/02/2025 US, obste tric, 1st trime ster No observ ation record ed. [facility] [address], [place], [address], 03/02/2025 17:50:51 03/02/20 25 03/02/2025 US, obste tric, nucha l trans lucen cy No observ ation record ed. [email or web address] [address], [place], [address], 03/02/2025 16:58:55 04/26/20 25 04/26/2025 US, obste tric, 2nd trime ster No observ ation record ed. [email or web address] [address], [place], [address], 04/27/2025 09:50:11 04/26/20 25 04/26/2025 US, obste tric, 2nd or 3rd trime ster No observ ation record ed. [email or web address] [place] [address], [place], [address], 04/26/2025 18:15:52 05/27/20 25 05/27/2025 US, obste tric, follo w-up No observ ation record ed. [facility] [address], [place], [address], 05/27/2025 14:03:34 05/27/20 25 05/27/2025 US, obste tric, follo w-up No observ ation record ed. [email or web address] [address], [place], [address], 05/27/2025 14:07:05 07/22/20 25 07/22/2025 US, obste tric, follo w-up No observ ation record ed. [facility] [address], [place], [address], 07/22/2025 13:46:42 07/22/20 25 07/22/2025 US, obste tric, follo w-up No observ ation record ed. [email or web address] [address], [place], [address], 08/08/2025 11:16:18 Result Notes None recorded. Problems Name Problem SNOMED Code Status Onset Date Resolution Date Notes Provider Name and Address Organization Details Recorded Time Family history of Factor V Leiden mutation 9305939009 [id number] Completed testing negative 08/06 Megan chapman, [facility] 4 13:41:32 Placenta circumva llata 0294496 Completed serial growth Megan chapman, [facility] 4 13:41:32 Pregnanc y 45808419 Completed 202202/09/2024 SH[facility], [facility] 5 16:16:10 Pregnanc y 19046762 Active 2024 SHAR chapman, [facility] 5 16:16:09 Placenta circumva llata 2628071 Active 2024 32 week growth US SHANI MALDONADO MD [address], [place], [address], [facility] 5 18:25:20 Placenta circumva llata 4464240 Active 2024 32 week growth US SHANI MALDONADO MD [address], [place], [address], [facility] 5 18:25:20 Problem Notes None recorded. Procedures Surgical History Date Name Laterality Status Provider Name and Address Organization Details Recorded Time 04/24/2023 Date of Last Pap Smear completed Karime Galvin [facility] 02/02/2025 17:02:43 Imaging Results None recorded. [...] Available Not Available Vitals Date Recorded Body height Body mass index (BMI) Body weight Systolic And Diastolic Provider Name and Address Organization Details Last Updated DateTime 05/27/2025 162.56 cm 23.5 kg/m2 25495.15 g 108/72 mm[Hg] Valerie Ortiz [facility] 05/27/2025 10:44:18 Social History Question Answer Notes LastModified by Organizat ion Details LastModified Time Tobacco Smoking Status Never Smoker Shirin chapman [facility] 10/01/2023 17:03:25 Are You Blind Or [...] Or The Highest Degree You Have Received? [id number] Information not available 08/06/2023 Are There Any [...] Functional Status Question Answer Note LastModified by tapviva ion Details LastModified Time Do you use any illicit or recreational drugs? No Information not available 01/14/2023 What is your level of alcohol consumption? None Information not available 11/28/2023 Are you able to walk independently without assistance or assistive devices? 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 Occasional Information not available 11/28/2023 Mental Status Question Answer Note LastModified by Organization D etails LastModified Time Do you feel stressed (tense, restless, nervous, or anxious, or unable to sleep at night)? [id number] Information not available 09/03/2023 Family History Relationship Description Onset Age of this Age Resolved Age Notes LastModified by Organization Details LastModified Time Maternal Aunt Anemia [email or web address] Not avail able 07/03/2023 15:51:07 Maternal Uncle Heart disease [email or web address] Not available 2022 15:51:07 Mother Disorder of thyroid gland [email or web address] Not available 2023 16:37:13 Mother Anemia [email or web address] Not available 01/30/2024 16:37:13 Maternal Grandmother Heart disease [email or web address] Not available 2023 16:37:13 Medical History Condition [...] ICD10 Code Diagnosis IMO Codes Diagnosis Note [id number] SHANI MALDONADO MD [place] [address] [address] 04/26/2025 16:32:16 04/27/2025 08:38:42 screening for malformation 917007970 Z36.3 Z3A.20 [id number] MD Ursula NARAYANAN [address] [address] 04/26/2025 16:32:34 04/27/2025 08:37:51 Large for gestation age fetus 031794817 O36.60X0 38380680 Placenta circumvallata 0086975 O43.573 7692856 Gestation period, 20 weeks 81050803 Z3A.20 1317477 [id number] SHANI MALDONADO MD [place] [address] [address] 05/27/2025 09:50:56 05/27/2025 10:31:05 Observational assessment 871355844 Z03.74 Z3A.24 5671231 [id number] SHANI MALDONADO MD [place] [address] [address] 05/27/2025 09:55:25 05/27/2025 11:14:20 screening 892380501 Z36.89 s ruvalcaba of fetus 63798749 Z34.90 2764100708 Placenta circumvallata 3136496 O43.602 6981425 Gestation period, 24 weeks 778221054 Z3A.24 [id number] Health Concerns Section Related Observation LastModified by Organization Detai ls LastModified Time None Recorded Concern Status LastModified by Organization Details LastModified Time None Recorded Payers Encounter Date Sequence Insurance Name Policy Number Policy Monteiro Covered Member ID Monteiro Member ID Guarantor Name 05/27/2025 1 [employer]ASEEM KATHLEEN - [employer] [id number] (PPO) [id number] Jeff Vazquez [id number] Lucita Vazquez Notes Date Note Type Note Provider Name and Address Organization Details Recorded Time 05/27/2025 text/html Generic HPI TemplateReported by Patient SHANI MALDONADO MD [address], [place], [address], [facility] 05/27/2025 11:11:45 OBGyn Episode Ob Episode Information Episode Created Date Number of Fetuses Patient Bloodtype Patient rh Status Prepregnancy Weight lbs Domestic Partner Domestic Partner Phone Father Name Herd Tester Status 03/02/20 25 1 A Positive OPEN Fetus Data First Name Last Name Admitted to NICU Weight (g) Sex Living Outcome Pediatric Complications Fetus ID Race Codes Race Delivery Type [id number] Problems Problem Notes Problem Name Start Date End Date Resolution Snomed Code Not e Placenta circumvallata 04/26/2025 350846 0 32 week growth US Rufino Calculation [...] Date Ultra Sound Latest Days Gestation 0 [email or web address] 03/02/2025 09/11/19 26 0 Pre-ashly Flowsheet Flowsheet [...] Weight in lbs Pre/Post Dialysis Refused Weight 129.51635133990 BP Diastolic BP Location Tested BP Systolic BP Type 79 L arm 122 sitting Fetus Heart Rate Present Fetus Movement A No Comments Patient presents to [facility] care. Hx of anxiety/depression, on Wellbutrin. otherwise uncomplicated. No nausea or cramping. NT/NB wnl today, desires NIPT. Will draw today with new OB labs. RTC 4 weeks for routine care. Flowsheet Date 03/30/2025 El Score Blood Edema Fundus Height Fundus Units Glucose Ketones Leukocytes Nitrite Labor Signs Protein Cervic Dilation Cervic Effacement Cervic Station Type Weight in lbs Pre/Post Dialysis Refused Weight 130.674177304972 BP Diastolic BP Location Tested BP Systolic [...] Weight in lbs Pre/Post Dialysis Refused Weight 135.588607896593 BP Diastolic BP Location Tested BP Systolic [...] Weight in lbs Pre/Post Dialysis Refused Weight 137.960237140261 BP Diastolic BP Location Tested BP Systolic BP Type 72 L arm 108 sitting Fetus Heart Rate Present A 135 Fetus Movement A Yes Comments Doing well, getting over sin us infection. Good movement. No cramping or bleeding. EFw 68%, normal fluid. Repeat at 32 weeks. Going to [place] on Friday, discussed travel precautions. RTC 4 weeks. Flowsheet Date 06/24/2025 El Score Blood Edema Fundus Height Fundus Units Glucose Ketones Leukocytes Nitrite Labor Signs Protein Cervic Dilation Cervic Effacement Cervic Station Type Weight in lbs Pre/Post Dialysis Refused Weight 142.867112922910 BP Diastolic BP Location Tested BP Systolic [...] Type Weight in lbs Pre/Post Dialysis Refused 144.010452687834 BP Diastolic BP Location Tested BP Systolic [...] Type Weight in lbs Pre/Post Dialysis Refused 147.021688169658 BP Diastolic BP Location Tested BP Systolic [...] Type Weight in lbs Pre/Post Dialysis Refused 152.320039407345 BP Diastolic BP Location Tested BP Systolic [...] Weight in lbs Pre/Post Dialysis Refused Weight 151.482721420088 BP Diastolic BP Location Tested BP Systolic [...] Weight in lbs Pre/Post Dialysis Refused Weight 157.817443819187 BP Diastolic BP Location Tested BP Systolic [...]
--- OUTSIDE RECORDS SUMMARY | 2025-08-23 23:11 | XMS_ITS | Continuity of Care Document ---
Author Organization [facility] Address [address] [address] Care Team Providers Care Conference Services Director Name Role Phone CATARINA LESLY Primary Care Provider Assessment No assessment recorded. [...] Procedures None recorded. Surgeries None recorded. Imaging US, obstetric , follow-up [address] [place] [address], [address], [address], [place], [address], 05/27/2025 14:07:14 Medication Orders None recorded. Patient TargetsNo targets recorded. Patient InstructionsNo instructions recorded. Reason for Referral None Reported. Results Created Date Observation Date Name Description Value Unit Range Abnormal Flag Note LastModifiedBy Organization Detail LastModifiedTime 03/09/2003/09/2025 [UNIT Y] ANEUP LOIDY NIPT fraction 9.4% normal Not Available Lalita Malcolm[address], [place], [address], 03/09/2025 17:04:01 03/09/20 25 03/09/2025 [UNIT Y] ANEUP LOIDY NIPT 22Q11.2 microdeletio n LOW RISK <1 in 10,000 normal Not Available Aníbal persaud [address], [place], [address], 03/09/2025 17:04:01 03/09/20 25 03/09/2025 [UNIT Y] ANEUP LOIDY NIPT sex chromosome aneuploidy NOT DETECT ED normal Not Available [facility] [address], [place], [address], 03/09/2025 17:04:01 03/09/20 25 03/09/2025 [UNIT Y] ANEUP LOIDY NIPT monosomy X LOW RISK <1 in 10,000 normal Not Available [facility] [address], [place], [address], 03/09/2025 17:04:01 03/09/20 25 03/09/2025 [UNIT Y] ANEUP LOIDY NIPT trisomy 13 LOW RISK <1 in 10,000 normal Not Available [facility] [address], [place], [address], 03/09/2025 17:04:01 03/09/20 25 03/09/2025 [UNIT Y] ANEUP LOIDY NIPT trisomy 18 LOW RISK <1 in 10,000 normal Not Available [facility] [address], [place], [address], 03/09/2025 17:04:01 03/09/20 25 03/09/2025 [UNIT Y] ANEUP LOIDY NIPT trisomy 21 LOW RISK <1 in 10,000 normal Not Available [facility] [address], [place], [address], 03/09/2025 17:04:01 03/09/20 25 03/09/2025 [UNIT Y] ANEUP LOIDY NIPT sex MALE normal Not Available [facility] [address], [place], [address], 03/09/2025 17:04:01 03/09/20 25 03/09/2025 [UNIT Y] ANEUP LOIDY NIPT gestation SINGLE TON normal Not Available [facility] [address], [place], [address], 03/09/2025 17:04:01 03/09/20 25 03/09/2025 [UNIT Y] ANEUP LOIDY NIPT for detailed report, see pdf See PDF normal Not Available [facility] [address], [place], [address], 03/09/2025 17:04:01 03/02/20 25 03/02/2025 CBC W/DIF F WBC 12.0 10'3/ uL 3.5-10 .5 high Not Available [facility] (Lab) [address], [place], [address], 03/03/2025 12:10:29 03/02/20 25 03/02/2025 CBC W/DIF F RBC 4.15 10'6/ uL (based on docume nted legal sex) 3.80-5 .20 Not Available [facility] (Lab) [address], [place], [address], 03/03/2025 12:10:29 03/02/20 25 03/02/2025 CBC W/DIF F HGB 12.9 g/dL (based on docume nted legal sex) 11.6-1 5.4 Not Available [facility] (Lab) [address], [place], [address], 03/03/2025 12:10:29 03/02/20 25 03/02/2025 CBC W/DIF F HCT 37.6 % (based on docume nted legal sex) 34.0-4 5.0 Not Available [facility] (Lab) [address], [place], [address], 03/03/2025 12:10:29 03/02/20 25 03/02/2025 CBC W/DIF F MCV 90.6 fL 80.0-9 9.0 Not Available [facility] (Lab) [address] [facility], [place], [address], 03/03/2025 12:10:29 03/02/20 25 03/02/2025 CBC W/DIF F MCH 31.1 pg 27.0-3 4.0 Not Available [facility] (Lab) [address] [facility], [place], [address], 03/03/2025 12:10:29 03/02/20 25 03/02/2025 CBC W/DIF F MCHC 34.3 g/dL 32.0-3 5.5 Not Available [facility] (Lab) [address] [facility], [place], [address], 03/03/2025 12:10:29 03/02/20 25 03/02/2025 CBC W/DIF F RDW 11.9 % 11.0-1 5.0 Not Available [facility] (Lab) [address] [facility], [place], [address], 03/03/2025 12:10:29 03/02/20 25 03/02/2025 CBC W/DIF F plt 344 10'3/ uL 150-40 0 Not Available [facility] (Lab) [address] [facility], [place], [address], 03/03/2025 12:10:29 03/02/20 25 03/02/2025 CBC W/DIF F MPV 9.8 fL 8.8-12 .1 Not Available [facility] (Lab) [address] [facility], [place], [address], 03/03/2025 12:10:29 03/02/20 25 03/02/2025 CBC W/DIF F NRBC's 0.0 % 0.0 Not Available [facility] (Lab) [address] [place], [address], 03/03/2025 12:10:29 03/02/20 25 03/02/2025 CBC W/DIF F absolute NRBCs 0.0 10'3/ uL no refere nce range establ ished Not Available [facility] (Lab) [address] [facility], [place], [address], 03/03/2025 12:10:29 03/02/20 25 03/02/2025 CBC W/DIF F neutrophils 74.6 % 34.0-7 3.0 high Not Available [facility] (Lab) [address] [place], [address], 03/03/2025 12:10:29 03/02/20 25 03/02/2025 CBC W/DIF F lymphocytes 19.0 % 15.0-5 0.0 Not Available [facility] (Lab) [address] [facility], [place], [address], 03/03/2025 12:10:29 03/02/20 25 03/02/2025 CBC W/DIF F monocytes 5.0 % 1.0-15 .0 Not Available [facility] (Lab) [address] [place], [address], 03/03/2025 12:10:29 03/02/20 25 03/02/2025 CBC W/DIF F eosinophils 0.7 % 0.0-8. 0 Not Available [facility] (Lab) [address] [facility], [place], [address], 03/03/2025 12:10:29 03/02/20 25 03/02/2025 CBC W/DIF F basophils 0.4 % 0.0-2. 0 Not Available [facility] (Lab) [address] [place], [address], 03/03/2025 12:10:29 03/02/2003/02/2025 CBC W/DIF F immature granulocytes 0.3 % no define d refere nce range Immat ure Granu locyt es (IG) repre sents autom ated enume ratio n of Metam yeloc ytes, Myelo cytes and Promy elocy elvis when IG is < 5%. Blast s are not inclu ded in IG and repor viktor separ ately if prese nt. Not Available [facility] (Lab) [address] [facility], [place], [address], 03/03/2025 12:10:29 03/02/20 25 03/02/2025 CBC W/DIF F absolute neutrophils 8.9 10'3/ uL 1.5-8. 0 high Not Available [facility] (Lab) [address] [facility], [place], [address], 03/03/2025 12:10:29 03/02/20 25 03/02/2025 CBC W/DIF F absolute lymphocytes 2.3 10'3/ uL 1.0-4. 0 Not Available [facility] (Lab) [address] [facility], [place], [address], 03/03/2025 12:10:29 03/02/20 25 03/02/2025 CBC W/DIF F absolute monocytes 0.6 10'3/ uL 0.2-1. 0 Not Available [facility] (Lab) [address] [facility], [place], [address], 03/03/2025 12:10:29 03/02/20 25 03/02/2025 CBC W/DIF F absolute eosinophils 0.1 10'3/ uL 0.0-0. 6 Not Available [facility] (Lab) [address] [place], [address], 03/03/2025 12:10:29 03/02/20 25 03/02/2025 CBC W/DIF F absolute basophils 0.1 10'3/ uL 0.0-0. 3 Not Available [facility] (Lab) [address] [place], [address], 03/03/2025 12:10:29 03/02/20 25 03/02/2025 CBC W/DIF F absolute immature granulocytes 0.0 10'3/ uL 0.00-0 .10 Refer ence range s for nonbi nary/ inter sex or unspe cifie d gende r patie nts have not been estab lishe d. Pleas e refer to the follo wing table for range s estab lishe d for cisge nder patie nts and evalu ate in the clini adam raymond xt of the indiv idual patie nt: https ://la bhsandra book. nm.or g/gen derx Not Available [facility] (Lab) [address], [place], [address], 03/03/2025 12:10:29 03/02/2003/02/2025 HIV 1/2 ANTIG EN/AN TIBOD Y, REFLE X CONFI RMATI ON HIV antigen/anti body Nonrea ctive nonrea ctive HIV-1 antig en and HIV-1 /HIV- 2 antib odies were not detec viktor. No labor atory evide nce of HIV infec tion. Not Available [facility] (Lab) [address], [place], [address], 03/03/2025 12:10:29 03/02/2003/02/2025 HEPAT ITIS B SURFA CE ANTIG EN hepatitis B surface antigen Non-re active non-re active This assay was perfo rmed using [employer] ratio n reage nts and test kits. Value s obtai celina with other assay metho ds or kits canno t be used inter cano eably . Not Available [facility] (Lab) [address], [place], [address], 03/03/2025 12:10:30 03/02/2003/02/2025 HEPAT ITIS C ANTIB SYD SCREE N, REFLE X TO CONFI RMATI ON hepatitis C antibody Non-re active non-re active Antib odies to HCV Not Detec viktor, does not exclu de the possi bilit y of expos ure to HCV. Not Available [facility] (Lab) [address], [place], [address], 03/03/2025 12:10:30 03/02/2003/02/2025 TSH, REFLE X FREE T4 TSH 2.17 uIU/m L 0.30-5 .33 Not Available [facility] (Lab) [address] [facility], [place], [address], 03/03/2025 12:10:30 03/02/20 25 03/02/2025 RUBEL LA IGG ANTIB SYD, QUANT rubella antibodies, IgG Reacti ve reacti ve Not Available [facility] (Lab) [address] [facility], [place], [address], 03/03/2025 12:10:31 03/02/20 25 03/02/2025 RUBEL LA IGG ANTIB SYD, QUANT rubella antibodies, IgG quant 20.9 IU/mL >=10 Non-r eacti ve (Non- Immun e) <10 IU/mL React gustavo (Immu ne) > or = 10 IU/mL Not Available [facility] (Lab) [address] [facility], [place], [address], 03/03/2025 12:10:31 03/02/20 25 03/02/2025 TYPE/ RH/SC REEN ABO/Rh type A POS Not Available [facility] (Lab) [address] [facility], [place], [address], 03/03/2025 12:10:31 03/02/20 25 03/02/2025 TYPE/ RH/SC REEN antibody screen NEG Not Available [facility] (Lab) [address] [facility], [place], [address], 03/03/2025 12:10:31 03/02/20 25 03/02/2025 TYPE/ RH/SC REEN exp date 2024 23:59 Not Available [facility] (Lab) [address] [facility], [place], [address], 03/03/2025 12:10:31 03/02/20 25 03/02/2025 HEMOG LOBIN A1C hemoglobin A1C 5.0 % 4.0-5. 6 The Ameri can Diabe elvis Assoc iatio n recom mends that a prima ry goal of thera py erick d be a HBA1C of < 7% and that physi cians shoul d reeva luate the treat ment regim en in patie nts with HBA1C value s consi stent ly > 8%. <5.7% Camryn l 5.7 - 6.4% Incre ased risk for diabe elvis >=6.5 % Diagn ostic of diabe elvis <7.0% Goal of thera py >8.0% Actio n sugge sted Not Available [facility] (Lab) [address] [facility], [place], [address], 03/03/2025 12:10:31 03/02/20 25 03/02/2025 RPR SCREE N, REFLE X TITER /CONF IRMAT ION RPR qualitative Nonrea ctive nonrea ctive Not Available [facility] (Lab) [address] [facility], [place], [address], 03/03/2025 12:10:32 05/27/20 25 05/27/2025 CULTU RE: URINE result report SEE RESULT S BELOW Test: Cultu re: Urine Speci men Sourc e: Urine - Clean Catch Speci men Type: Urine Speci men Date: 2024 1053 Resul t Date: 2024 2233 Resul t Statu s: Final resul t Abnor mal: No Resul ting Lab: [facility] [address] [facility] [address] Tel: CULTU RE ----- ----- ----- --- No growt h in 1 day (dete ction level of 10,00 0 colon ies / ml.) Not Available [facility] (Lab) [address] [facility], [place], [address], 05/28/2025 23:37:55 03/02/20 25 03/02/2025 US, obste tric, nucha l trans lucen cy No observ ation record ed. [facility] [address], [place], [address], 03/02/2025 17:50:41 03/02/20 25 03/02/2025 US, obste tric, 1st trime ster No observ ation record ed. [facility] [address], [place], [address], 03/02/2025 17:50:51 03/02/20 25 03/02/2025 US, obste tric, nucha l trans lucen cy No observ ation record ed. [email or web address] [address], [place], [address], 03/02/2025 16:58:55 04/26/20 25 04/26/2025 US, obste tric, 2nd trime ster No observ ation record ed. [email or web address] [address], [place], [address], 04/27/2025 09:50:11 04/26/20 25 04/26/2025 US, obste tric, 2nd or 3rd trime ster No observ ation record ed. [email or web address] [facility] [address], [place], [address], 04/26/2025 18:15:52 05/27/20 25 05/27/2025 US, obste tric, follo w-up No observ ation record ed. [facility] [address], [place], [address], 05/27/2025 14:03:34 05/27/20 25 05/27/2025 US, obste tric, follo w-up No observ ation record ed. [email or web address] [address], [place], [address], 05/27/2025 14:07:05 07/22/20 25 07/22/2025 US, obste tric, follo w-up No observ ation record ed. [facility] [address], [place], [address], 07/22/2025 13:46:42 07/22/20 25 07/22/2025 US, obste tric, follo w-up No observ ation record ed. [email or web address] [address], [place], [address], 08/08/2025 11:16:18 Result Notes None recorded. Problems Name Problem SNOMED Code Status Onset Date Resolution Date Notes Provider Name and Address Organization Details Recorded Time Family history of Factor V Leiden mutation 3053312857 1327803 Completed testing negative 08/06 Megan Kwan [facility], [facility] 4 13:41:32 Placenta circumva llata 9530680 Completed serial growth Darrenlorenzo HayesAquilessmitha chapman [facility] 4 13:41:32 Pregnanc y 72768750 Completed 202202/09/2024 SHAR Montoya [facility], [facility] 5 16:16:10 Pregnanc y 06518317 Active 2024 SHAR Montoya [facility], [facility] 5 16:16:09 Placenta circumva llata 9242868 Active 2024 32 week growth US SHANI MALDONADO MD [address], [place], [address], [facility] 5 18:25:20 Placenta circumva llata 6101310 Active 2024 32 week growth US SHANI MALDONADO MD [address], [place], [address], [facility] 5 18:25:20 Problem Notes None recorded. Procedures Surgical History Date Name Laterality Status Provider Name and Address Organization Details Recorded Time 04/24/2023 Date of Last Pap Smear completed Karime Galvin [facility] 02/02/2025 17:02:43 Imaging Results None [...] Updated DateTime 05/27/2025 162.56 cm 23.5 kg/m2 92016.15 g 108/72 mm[Hg] Valerie Ortiz [facility] 05/27/2025 10:44:18 Social History Question Answer Notes LastModified by Organizat ion Details LastModified Time Tobacco Smoking Status Never Smoker Shirin chapman [facility] 10/01/2023 17:03:25 Are You Blind [...] Or The Highest Degree You Have Received? 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 Occasional Information not available 11/28/2023 Mental Status Question Answer Note LastModified by Organization D etails LastModified Time Do you feel stressed (tense, restless, nervous, or anxious, or unable to sleep at night)? [id number] Information not available 09/03/2023 Family History Relationship Description Onset Age of this Age Resolved Age Notes LastModified by Organization Details LastModified Time Maternal Aunt Anemia [email or web address] Not avail able 07/03/2023 15:51:07 Maternal Uncle Heart disease [email or web address] Not available 2022 15:51:07 Mother Disorder of thyroid gland [email or web address] Not available 2023 16:37:13 Mother Anemia [email or web address] Not available 01/30/2024 16:37:13 Maternal Grandmother Heart [...] ICD10 Code Diagnosis IMO Codes Diagnosis Note [id number] SHANI MALDONADO MD [facility] [address],[place] [address] 04/26/2025 16:32:16 04/27/2025 08:38:42 screening for malformation 541868100 Z36.3 Z3A.20 2934540975 [id number] SHANI MALDONADO MD [place] [address],[place] [address] 04/26/2025 16:32:34 04/27/2025 08:37:51 Large for gestation age fetus 170376469 O36.60X0 31518804 Placenta circumvallata 0769968 O43.390 1210047 Gestation period, 20 weeks 40336976 Z3A.20 6912178 [id number] SHANI MALDONADO MD [facility] [address],[place] [address] 05/27/2025 09:50:56 05/27/2025 10:31:05 Observational assessment 403504613 Z03.74 Z3A.24 1241059 [id number] SHANI MALDONADO MD [facility] [address],[place] [address] 05/27/2025 09:55:25 05/27/2025 11:14:20 screening 410019498 Z36.89 s ruvalcaba of fetus 09043297 Z34.90 5697120217 Placenta circumvallata 4970870 O43.863 0666776 Gestation period, 24 weeks 062945785 Z3A.24 4668773 Health Concerns Section Related Observation LastModified by Organization Detai ls LastModified Time None Recorded Concern Status LastModified by Organization Details LastModified Time None Recorded Payers Encounter Date Sequence Insurance Name Policy Number Policy Monteiro Covered Member ID Monteiro Member ID Guarantor Name 05/27/2025 1 [employer] 421 (PPO) [id number] Jeff Vazquez [id number] Lucita Vazquez Notes Date Note Type Note Provider Name and Address Organization Details Recorded Time 05/27/2025 text/html Generic HPI TemplateReported by Patient SHANI MALDONADO MD [address], [place], [address], [place] [facility] 05/27/2025 11:11:45 OBGyn Episode Ob Episode Information Episode Created Date Number of Fetuses Patient Bloodtype Patient rh Status Prepregnancy Weight lbs Domestic Partner Domestic Partner Phone Father Name Newspaper Journalist Status 03/02/20 25 1 A Positive OPEN Fetus Data First Name Last Name Admitted to NICU Weight (g) Sex Living Outcome Pediatric Complications Fetus ID Race Codes Race Delivery Type [id number] Problems Problem Notes Problem Name Start Date End Date Resolution Snomed Code Not e Placenta circumvallata 04/26/2025 163761 0 32 week growth US Rufino Calculation [...] Date Ultra Sound Latest Days Gestation 0 [id number] 03/02/2025 09/11/19 26 0 Pre- Flowsheet Flowsheet [...] Weight in lbs Pre/Post Dialysis Refused Weight 129.63201456806 BP Diastolic BP Location Tested BP Systolic BP Type 79 L arm 122 sitting Fetus Heart Rate Present Fetus Movement A No Comments Patient presents to [facility] care. Hx of anxiety/depression, on Wellbutrin. otherwise uncomplicated. No nausea or cramping. NT/NB wnl today, desires NIPT. Will draw today with new OB labs. RTC 4 weeks for routine care. Flowsheet Date 03/30/2025 El Score Blood Edema Fundus Height Fundus Units Glucose Ketones Leukocytes Nitrite Labor Signs Protein Cervic Dilation Cervic Effacement Cervic Station Type Weight in lbs Pre/Post Dialysis Refused Weight 130.292615489938 BP Diastolic BP Location Tested BP Systolic [...] Weight in lbs Pre/Post Dialysis Refused Weight 135.990177921197 BP Diastolic BP Location Tested BP Systolic [...] Weight in lbs Pre/Post Dialysis Refused Weight 137.641760390868 BP Diastolic BP Location Tested BP Systolic BP Type 72 L arm 108 sitting Fetus Heart Rate Present A 135 Fetus Movement A Yes Comments Doing well, getting over sin us infection. Good movement. No cramping or bleeding. EFw 68%, normal fluid. Repeat at 32 weeks. Going to [place] on Friday, discussed travel precautions. RTC 4 weeks. Flowsheet Date 06/24/2025 El Score Blood Edema Fundus Height Fundus Units Glucose Ketones Leukocytes Nitrite Labor Signs Protein Cervic Dilation Cervic Effacement Cervic Station Type Weight in lbs Pre/Post Dialysis Refused Weight 142.956482450413 BP Diastolic BP Location Tested BP Systolic [...] Type Weight in lbs Pre/Post Dialysis Refused 144.520754011453 BP Diastolic BP Location Tested BP Systolic [...] Type Weight in lbs Pre/Post Dialysis Refused 147.119423990156 BP Diastolic BP Location Tested BP Systolic [...] Type Weight in lbs Pre/Post Dialysis Refused 152.113249255092 BP Diastolic BP Location Tested BP Systolic [...] Weight in lbs Pre/Post Dialysis Refused Weight 151.089280413136 BP Diastolic BP Location Tested BP Systolic [...] Weight in lbs Pre/Post Dialysis Refused Weight 157.451676425472 BP Diastolic BP Location Tested BP Systolic [...]
--- OUTSIDE RECORDS SUMMARY | 2025-08-23 23:11 | XMS_ITS | Data Portability ---
Author Organization [facility] [place] Address [address] [place] [address] Care Team Providers Care Trademark Attorney Name Role Phone LESLY ELMORE Primary Care Provider [phone] Assessment No assessment recorded. Plan of Treatment Reminders Order Date Submit Date Provider Last Modified By Organization Details Last Modified Time Details Appointments OB ROUTINE 2024 03:45P Kath MALDONADO MD Not available Not available Not available INDUCTION 2024 05:00A Kath MALDONADO MD Not available Not available Not available Lab bile acids, total, serum 2024 025 [facility] (Lab), [address], [place], [address], 08/23/2025 18:19:41 CMP, serum or plasma 2024 025 [facility] (Lab), [address], [place], [address], 08/23/2025 18:19:41 iron + TIBC + ferritin, serum 2024 025 [facility] (Lab), [address], [place], [address], 08/23/2025 18:19:41 CBC w/ auto diff 2024 025 [facility] (Lab), [address], [place], [address], 08/23/2025 18:19:40 Referral None recorded. Procedures None recorded. Surgeries None recorded. Imaging US, obstetric , follow-up 2024 025 [facility], [address], [address], [place], [address], 07/22/2025 17:33:32 Medication Orders None recorded. Patient TargetsNo targets recorded. Patient InstructionsNo instructions recorded. Reason for Referral None Reported. Results Created Date Observation Date Name Description Value Unit Range Abnormal Flag Note LastModifiedBy Organization Detail LastModifiedTime 06/24/2006/24/2025 HEMAT OCRIT (HCT) HCT 32.6 % (based on docume nted legal sex) 34.0-4 5.0 low Not Available [facility] (Lab) [address], [place], [address], 06/25/2025 14:14:21 06/24/20 25 06/24/2025 HEMOG LOBIN (HGB) HGB 10.3 g/dL (based on docume nted legal sex) 11.6-1 5.4 low Not Available [facility] (Lab) [address], [place], [address], 06/25/2025 14:14:22 06/24/20 25 06/24/2025 GTT - GESTA DHAVAL L SCREE N, ACOG OB glucose, 1 hour screen 70 mg/dL 70-135 Not Available [facility] (Lab) [address], [place], [address], 06/25/2025 14:14:22 06/24/20 25 06/24/2025 HIV 1/2 ANTIG EN/AN TIBOD Y, REFLE X CONFI RMATI ON HIV antigen/anti body Nonrea ctive nonrea ctive HIV-1 antig en and HIV-1 /HIV- 2 antib odies were not detec viktor. No labor atory evide nce of HIV infec tion. Not Available [facility] (Lab) [address], [place], [address], 06/25/2025 14:14:22 06/24/20 25 06/24/2025 RPR SCREE N, REFLE X TITER /CONF IRMAT ION RPR qualitative Nonrea ctive nonrea ctive Not Available [facility] (Lab) [address], [place], [address], 06/25/2025 14:14:23 08/17/20 25 08/17/2025 CULTU RE: GROUP B STREP SCREE N, REFLE X SUSCE PTIBI LITY result report SEE RESULT S BELOW Test: Cultu re: Group B Strep , Refle x Susce ptibi lity ([facility]/ [facility] ) Speci men Sourc e: Vagin a/Rec bruce Speci men Type: Vagin al/Re ctal Speci men Date: 08/17 1012 Resul t Date: 08/20 1025 Resul t Statu s: Final resul t Abnor mal: No Resul ting Lab: [facility] [address] [facility] [address] Tel: CULTU RE ----- ----- ----- --- No Group B strep isola viktor at 2 days (tiki ctive broth enhan cemen t) Not Available [facility] (Lab) [address], [place], [address], 08/20/2025 11:32:33 07/22/20 25 07/22/2025 , reginald minero w-up No observ ation record ed. [facility] [address], [place], [address], 07/22/2025 13:46:42 07/22/20 25 07/22/2025 US, froilan young follo w-up No observ ation record ed. [email or web address] Kim [address], [place], [address], 08/08/2025 11:16:18 Result Notes None recorded. Problems Name Problem SNOMED Code Status Onset Date Resolution Date Notes Provider Name and Address Organization Details Recorded Time Family history of Factor V Leiden mutation [id number] [id number] Completed testing negative 08/06 Megan chapman, [facility] 4 13:41:32 Placenta circumva llata 9729502 Completed serial growth Megan chapman, [facility] 4 13:41:32 Pregnanc y 90896733 Completed 202202/09/2024 SHAR Mont[facility], [facility] 5 16:16:10 Pregnanc y 25886607 Active 2024 SHAR chapman, [facility] 5 16:16:09 Placenta circumva llata 9158158 Active 2024 32 week growth US SHANI MALDONADO MD [address], [place], [address], [facility] 5 18:25:20 Placenta circumva llata 3258098 Active 2024 32 week growth US SHANI MALDONADO MD [address], [place], [address], [facility] 5 18:25:20 Problem Notes None recorded. Procedures Surgical History Date Name Laterality Status Provider Name and Address Organization Details Recorded Time 04/24/2023 Date of Last Pap Smear completed Karime Galvin [facility] 02/02/2025 17:02:43 Imaging Results None recorded. [...] ONCE DAILY IN THE MORNING BEFORE BREAKFAST 05/28 /2025 completed Not Available Not Available Not Available benzonatate 100 mg capsule TAKE 1 TO 2 CAPSULES BY MOUTH THREE TIMES DAILY NEEDED FOR COUGH 01/14 completed Not Available Not Available Not Available cephalexin 500 mg capsule TAKE 1 CAPSULE BY MOUTH THREE TIMES DAILY 01/14 completed Not Available Not Available Not Available amoxicillin 875 mg-good melton clavulanate 125 mg tablet TAKE 1 TABLET [...] Address Organization Details Last Updated DateTime 07/22/2025 51234.078 39 g 25.2 kg/m2 162.56 cm 111/66 mm[Hg] Valerie [facility] 07/22/2025 11:12:57 Date Recorded Body weight Body mass index (BMI) Body height Systolic And Diastolic Provider Name and Address Organization Details Last Updated DateTime 08/10/2025 25687.040 24 g 26.1 kg/m2 162.56 cm 128/78 mm[Hg] Valerie [facility] 08/10/2025 10:28:04 Date Recorded Body height Body mass index (BMI) Body weight Systolic And Diastolic Provider Name and Address Organization Details Last Updated DateTime 08/17/2025 162.56 cm 25.9 kg/m2 15374.45 g 131/77 mm[Hg] MURTAZA WALTERS [facility] 08/17/2025 10:22:43 Date Recorded Body height Body mass index (BMI) Body weight Systolic And Diastolic Provider Name and Address Organization Details Last Updated DateTime 08/22/2025 162.56 cm 26.9 kg/m2 57558 g 124/84 mm[Hg] MURTAZA SELENA [facility] 08/22/2025 12:38:17 Social History Question Answer Notes LastModified by Organizat ion Details LastModified Time Tobacco Smoking Status Never Smoker Shirin chapman [facility] 10/01/2023 17:03:25 Are You Blind Or [...] Or The Highest Degree You Have Received? [id number] Information not available 08/06/2023 Are There Any [...] not available 09/03/2023 What is your occupation? [employer] Information not available 08/06/2023 What is your exercise level? Occasional Information not available 11/28/2023 Mental Status Question Answer Note LastModified by Organization D etails LastModified Time Do you feel stressed (tense, restless, nervous, or anxious, or unable to sleep at night)? [id number] Information not available 09/03/2023 Family History Relationship Description Onset Age of this Age Resolved Age Notes LastModified by Organization Details LastModified Time Maternal Aunt Anemia [email or web address] Not avail able 07/03/2023 15:51:07 Maternal Uncle Heart disease [email or web address] Not available 2022 15:51:07 Mother Disorder of thyroid gland [email or web address] Not available 2023 16:37:13 Mother Anemia [email or web address] Not available 01/30/2024 16:37:13 Maternal Grandmother Heart [...] ICD10 Code Diagnosis IMO Codes Diagnosis Note [id number] Kylee Stephens [facility] [address] [address] 01/14/2023 14:12:59 01/14/2023 17:05:50 Pain in pelvis 59756098 R10.2 Today we are trying to determine if the pain/disco mfort she is experienci ng is more musculoske letal, Herination (inguinal/ femoral); or SEWING MACHINE BOBBIN WINDER related.We decided to start with TVUS.Will reach out with results.If they are wnl we will move onto evaluation of groin pain with Groin US.We discussed that it may not be any of these and simply be a muscular strain in this area as well; I have not received the left sided doppler US she recently had which was reported to be ordered to r/o blood clots b/c of random left leg numbness that will happen. Additional diff/dx: infection (recently had abx)-urine not available to send for testing. Note to obtain urine sample when she comes for TVUS. Time spent in visit is a total of 30 mins with at least 50% of visit consisting of counseling and review of plan of care. Inguinal pain 613168313 R10.2 If TVUS is wnl then we will pursue US of groin specifical ly looking for Inguinal/f emoral herniation .pain is elicited with cough, laugh, straining of muscles in this area.a burning, aching sensation. [id number] Stone Lee MD [place] [address] [address] 01/15/2023 17:46:13 01/15/2023 18:32:45 Pain in pelvis 25950193 R10.2 [id number] Kylee Stephens [facility] [address],[place] [address] 04/24/2023 16:11:26 04/24/2023 16:30:55 Gynecologic examination 32145598 Z01.419 Take Calcium with Vitamin D 1200mg daily if not receiving in daily diet. It is strongly advised to have an annual flu shot and up can obtain at most pharmacies . If you have not had a TDap shot in the last 10 years you should obtain one as well. Discussed with patient & provided with informatio n regarding Gardisil vaccine to prevent the 4 strains for HPV that cause cervical cancer if under age 26. Encourage safe sexual practices, to use condoms and limit partners if not already in a monogamous relationsh ip. Do monthly self breast exams. Have mammogram yearly or every other year depending on family history. BRCA testing is now available for patients with strong genetic history of female cancer. If interested contact the office. Engage in daily exercise of low impact aerobic exercise 45-60 minutes 4-5 times weekly. Avoid tobacco and illicit drugs as well as using moderation with alcohol intake less than 1-2 8 oz beverages daily. This lifestyle behavior pattern will lead to less health conditions and longer life span. If BMI greater than 25 weight watchers or dietary consult advised. Patient received above instructio ns, and questions have been answered. If you have any questions please call or respond to this email. Patient was made aware of the patient portal and may obtain a paper copy of today's plan if desired.Nghia wong sentSTD Screen sentGeneti c Screen discussedC olon Screen naDexa Screen naRoutine Labs PCP [id number] SHANI MALDONADO MD [place] [address],[place] [address] 07/03/2023 15:09:39 07/03/2023 15:43:05 [id number] SHANI MALDONADO MD [place] [address],[place] [address] 07/03/2023 15:11:33 07/04/2023 06:22:52 test positive 715084095 Z32.01 1. Exam today within normal limits.2. Ultrasound today confirms GA and viability. EDC . GC/Clamydi a testing done: will f/u as indicated. 4. ACOG guidelines and plan of care for reviewed with patient. All questions answered.5 . Return to office at 12 weeks for new OB visit6. Will need new OB labs at next visit.7. Genetic screening: desires. [id number] Stone Lee MD [place] [address],[place] [address] 07/15/2023 16:21:51 07/15/2023 17:08:26 Threatened miscarriage 26636330 Z3A.09 [id number] Stone Lee MD [place] [address],[place] [address] 08/06/2023 15:49:31 08/06/2023 16:33:35 screening 489377028 Z36.82 Z3A.12 [id number] SHANI MALDONADO MD [place] [address],[place] [address] 08/06/2023 15:49:55 08/06/2023 17:28:12 Family history of Factor V Leiden mutation 3442952007 9498180 Z83.2 Gestation period, 12 weeks 38572918 Z3A.12 [id number] SHANI MALDONADO MD [place] [address],[place] [address] 09/03/2023 16:51:59 09/03/2023 17:29:21 Spotting per vagina in 353889129 O26.859 Gestation period, 16 weeks 42619860 Z3A.16 [id number] Stone Lee MD [place] [address],[place] [address] 10/01/2023 15:49:26 10/01/2023 17:47:13 screening for malformation 803088174 Z36.3 Z3A.20 [id number] SHANI MALDONADO MD [place] [address],[place] [address] 10/01/2023 15:50:01 10/07/2023 17:15:00 Placenta circumvallata 2450714 O43.119 Gestation period, 20 weeks 29400859 Z3A.20 [id number] SHANI MALDONADO MD [place] [address],[place] [address] 10/31/2023 15:52:51 11/03/2023 15:50:24 Placenta circumvallata 2917769 O43.119 Gestation period, 24 weeks 246497891 Z3A.24 [id number] Stone Lee MD [place] [address],[place] [address] 11/06/2023 17:23:14 11/06/2023 17:54:52 Placenta circumvallata 7883666 O43.112 Z3A.25 [id number] SHANI MALDONADO MD [place] [address],[place] [address] 11/28/2023 13:35:17 11/28/2023 15:09:11 Gestation period, 28 weeks 84576352 Z3A.28 Placenta circumvallata 6975897 O43.119 [id number] Stone Lee MD [place] [address],[place] [address] 11/28/2023 13:35:51 11/28/2023 14:38:11 Placenta circumvallata 6712164 O43.113 Z3A.28 [id number] SHANI MALDONADO MD [place] [address],[place] [address] 12/12/2023 15:49:08 12/16/2023 02:20:53 Placenta circumvallata 4616094 O43.119 Gestation period, 30 weeks 56934347 Z3A.30 [id number] Stone Lee MD [place] [address],[place] [address] 12/30/2023 17:12:30 12/30/2023 18:09:50 Placenta circumvallata 0746264 O43.113 O35.8XX0 Z3A.33 [id number] SHANI MALDONADO MD [place] [address],[place] [address] 12/30/2023 17:12:54 01/05/2024 06:03:10 Gestation period, 33 weeks 45696682 Z3A.33 Placenta circumvallata 5131399 O43.113 [id number] SHANI MALDONADO MD [place] [address],[place] [address] 01/12/2024 11:03:12 01/12/2024 11:39:03 Placenta circumvallata 2300898 O43.113 Gestation period, 35 weeks 88201341 Z3A.35 [id number] Stone Lee MD [place] [address],[place] [address] 01/23/2024 11:20:01 01/23/2024 11:53:42 Placenta circumvallata 0794047 O43.113 Z3A.36 [id number] Stone Lee MD [place] [address],[place] [address] 01/23/2024 11:20:55 01/23/2024 12:23:56 Routine care 141741377 Z34.00 [id number] SHANI MALDONADO MD [place] [address],[place] [address] 01/30/2024 16:36:40 01/31/2024 11:38:18 Placenta circumvallata 7775926 O43.113 Z3A.36 Gestation period, 37 weeks 07476434 Z3A.37 [id number] SHANI MALDONADO MD [place] [address],[place] [address] 03/08/2024 10:18:37 03/08/2024 11:03:13 Mixed anxiety and depressive disorder 743386663 F41.8 - EPDS 14- discussed treatment options, patient concerned with weight gain and sexual side effects- will trial bupropion- f/u in 1 month for med check care 36603090 8 Z39.2 S/p 4 weeks ago here today for a visit.1. Patient recovering well2. Plans to continue breast feeding (Exclusive ly pumping)3. Interested in POPs for contracept ion at this time. Risks, benefits, and alternativ es reviewed with the patient SHANI MALDONADO MD [place] [address],[place] [address] 04/02/2024 11:06:18 04/02/2024 15:12:31 depression 85400588 F53.0 - Started bupropion 150mg daily at visit- doing better, tolerating well, has more energy and motivation - no SI/HI- will increase to twice daily; patient to call if she still would like to increase further- rtc 6-12 months for WWE [id number] Stone Lee MD [place] [address],[place] [address] 02/02/2025 15:17:33 02/02/2025 16:09:52 [id number] Stone Lee MD [place] [address] [address] 02/02/2025 15:19:27 02/02/2025 17:28:13 Amenorrhea 24658907 N91.2 17815 this patient is a 29-year-ol d female who presents for amenorrhea . She is a positive test. Ultrasound revealed a 1st trimester gestation. Patient has no complaints . We talked about early care. Talked about genetic screening. We talked about her ultrasound results. We talked about the 12 week ultrasound that has genetic screening components . She was given recommenda tions on exercise, diet, over-the-c ounter medication s. We reviewed her obstetric history. We reviewed her medical history. We reviewed her social history. She will begin routine care at her next visit. [id number] SHANI MALDONADO MD [place] [address],[place] [address] 03/02/2025 15:05:31 03/02/2025 16:25:48 screening 948838132 Z36.82 Z3A.12 5019523184 [id number] SHANI MALDONADO MD [place] [address],[place] [address] 03/02/2025 15:05:47 03/02/2025 17:02:55 screening 160528446 Z36.89 care status 24 9295930 Z34.81 87972512 [id number] Stone Lee MD [place] [address] [address] 03/30/2025 10:39:29 03/30/2025 11:27:31 care status 141868832 Z34.82 28137951 [id number] MD Ursula NARAYANAN [address] [address] 04/26/2025 16:32:16 04/27/2025 08:38:42 screening for malformation 142539672 Z36.3 Z3A.20 2797247875 [id number] MD Ursula NARAYANAN [address] [address] 04/26/2025 16:32:34 04/27/2025 08:37:51 Large for gestation age fetus 314759070 O36.60X0 05059622 Placenta circumvallata 3808382 O43.737 1440941 Gestation period, 20 weeks 98356099 Z3A.20 1753468 [id number] MD Ursula NARAYANAN [address] [address] 05/27/2025 09:50:56 05/27/2025 10:31:05 Observational assessment 321403253 Z03.74 Z3A.24 4356102 [id number] MD Ursula NARAYANAN [address] [address] 05/27/2025 09:55:25 05/27/2025 11:14:20 screening 148089055 Z36.89 s ruvalcaba of fetus 66081468 Z34.90 7024934125 Placenta circumvallata 4958462 O43.943 2418190 Gestation period, 24 weeks 280310041 Z3A.24 7848761 [id number] MD Ursula NARAYANAN [address] [address] 06/24/2025 10:01:03 06/24/2025 10:41:54 Placenta circumvallata 2379216 O43.591 5768743 Gestation period, 28 weeks 72666255 Z3A.28 7569413 [id number] MD Ursula NARAYANAN [address] [address] 07/05/2025 09:25:40 07/05/2025 10:13:57 Depressive disorder 67834550 F32.A 66296130 Placenta circumvallata 3525243 O43.523 3245289 Gestation period, 30 weeks 30148128 Z3A.30 0213765 [id number] SHANI MALDONADO MD [place] [address] [address] 07/22/2025 10:16:16 07/22/2025 11:13:21 Placenta circumvallata 6381439 O43.113 Z03.74 Z3A.32 5635397 [id number] MD Ursula NARAYANAN [address] [address] 07/22/2025 10:17:41 07/22/2025 11:28:37 Placenta circumvallata 0822727 O43.479 7047730 Gestation period, 32 weeks 5975754 Z3A.32 2795231 [id number] SHANI MALDONADO MD [place] [address],[place] [address] 08/10/2025 10:09:41 08/10/2025 10:43:57 care status 180965844 Z34.83 86337430 [id number] MD Ursula NARAYANAN [address] [address] 08/17/2025 10:01:02 08/17/2025 10:51:06 Placenta circumvallata 7683039 O43.541 7668464 Gestation period, 36 weeks 77544094 Z3A.36 9930194 [id number] SHANI MALDONADO MD [place] [address],[place] [address] 08/22/2025 12:34:04 08/22/2025 12:57:18 Pruritic disorder of skin 2541250562 L29.9 74751 - itching on feet at night Anemia 418572808 D64.9 7519493 Placenta circumvallata 6585322 O43.051 8602780 Gestation period, 37 weeks 76647930 Z3A.37 2277243 Health Concerns Section Related Observation LastModified by Organization Detai ls LastModified Time None Recorded Concern Status LastModified by Organization Details LastModified Time None Recorded Advance Directives Directive None Recorded Payers Insurance Date Sequence Insurance Name Policy Number Policy Monteiro Covered Member ID Monteiro Member ID Guarantor Name 08/22/2025 1 NASEEM Landrum Green [id number] Lucita Vazquez 01/13/2023 1 NASEEM Aguilar Green [id number] Lucita Green 08/19/2025 1 [employer] - [place] - [employer]UM[employer]ERS [employer] PIPEFITTERS LOCAL [id number] (PPO) [id number] Jeff Green [id number] Lucita Green 08/22/2025 2 [employer] Lucita Green [id number] Lucita Green Notes Date Note Type Note Provider Name and Address Organization Details Recorded Time 07/22/2025 text/html Generic HPI TemplateReported by Patient SHANI MALDONADO MD [address], [place], [address], [facility] 07/22/2025 11:24:56 08/10/2025 text/html Generic HPI TemplateReported by Patient SHANI MALDONADO MD [address], [place], [address], [facility] 08/10/2025 10:42:47 08/17/2025 text/html Generic HPI TemplateReported by Patient SHANI MALDONADO MD [address], [place], [address], [facility] 08/17/2025 10:50:46 08/22/2025 text/html Generic HPI TemplateReported by Patient SHANI MALDONADO MD [address], [place], [address], [facility] 08/22/2025 12:51:17 OBGyn Episode Ob Episode Information Episode Created Date Number of Fetuses Patient Bloodtype Patient rh Status Prepregnancy Weight lbs Domestic Partner Domestic Partner Phone Father Name Airworthiness Inspector Status 08/06/20 23 1 137 CLOSED Fetus Data First Name Last Name Admitted to NICU Weight (g) Sex Living Outcome Pediatric Complications Fetus ID Race Codes Race Delivery Type 3373.59 05 M true Full Term [id number] Vaginal Delivery Problems Problem Notes Problem Name Start Date End Date Resolution Snomed Code Not e Family history of Factor V Leiden mutation [id number] testing negative 08/06 Placenta circumvallata 4317428 serial growth Rufino Calculation Initial Rufino Date Initial Exam Date Initial Exam Provider Initial Ultrasound Date Last Menstrual Period Date Ultra Sound Weeks Gestation 02/15/2024 08/06/2023 07/03/2023 05/11/2023 7 Eighteen To Twenty Week Rufino Update Ultra Sound Date Fundal Height At Umbil Quickening Date Ultra Sound Latest Weeks Gestation Final Rufino Confirmed By Final Rufino Confirmed Date Final Rufino Date Ultra Sound Latest Days Gestation 0 [email or web address] 08/06/2023 02/15/20 24 0 Pre- Flowsheet Flowsheet Date 08/06/2023 El Score Blood Edema Fundus Height Fundus Units Glucose Ketones Leukocytes Nitrite Labor Signs Protein Cervic Dilation Cervic Effacement Cervic Station 12 Type Weight in lbs Pre/Post Dialysis Refused Weight 138.778286639152 BP Diastolic BP Location Tested BP Systolic BP Type 84 122 Fetus Heart Rate Present A 153 Fetus Movement Comments Presents to establish [facility] care. uncomplicated thus far. Just found out her maternal cousin had a blood clot, and is Factor V leiden mutation positive. Her maternal aunt and other cousins were also positive. Mother has not been tested. Will send labwork today, discussed increased risk of VTE in . Desires NIPT, NT/NB wnl today. Will begin routine care. Flowsheet Date 09/03/2023 El Score Blood Edema Fundus Height Fundus Units Glucose Ketones Leukocytes Nitrite Labor Signs Protein Cervic Dilation Cervic Effacement Cervic Station 16 Type Weight in lbs Pre/Post Dialysis Refused Weight 143.127497887442 BP Diastolic BP Location Tested BP Systolic BP Type 74 112 Fetus Heart Rate Present A 145 Fetus Movement A Yes Comments Had one episode of spotting, no inciting events. Some movement. Negative for Factor V Leiden mutation. Otherwise doing well. Williams gender! Anatomy US next visit. Flowsheet Date 10/01/2023 El Score Blood Edema Fundus Height Fundus Units Glucose Ketones Leukocytes Nitrite Labor Signs Protein Cervic Dilation Cervic Effacement Cervic Station Type Weight in lbs Pre/Post Dialysis Refused BP Diastolic BP Location Tested BP Systolic BP Type Fetus Heart Rate Present Fetus Movement Comments Flowsheet Date 10/01/2023 El Score Blood Edema Fundus Height Fundus Units Glucose Ketones Leukocytes Nitrite Labor Signs Protein Cervic Dilation Cervic Effacement Cervic Station Type Weight in lbs Pre/Post Dialysis Refused Weight 143.675479236553 BP Diastolic BP Location Tested BP Systolic BP Type 74 112 Fetus Heart Rate Present A 147 Fetus Movement A Yes Comments Doing well, no ctx, LOF, VB. Good movement. No further spotting. Anatomy complete today, left EIF, discussed and reassured. Circumvallate placenta, plan for serial growths. Double left renal artery, kidneys otherwise wnl. Discussed all of these findings are incidental and minor, will monitor growth. RTC 4 weeks. Flowsheet Date 10/31/2023 El Score Blood Edema Fundus Height Fundus Units Glucose Ketones Leukocytes Nitrite Labor Signs Protein Cervic Dilation Cervic Effacement Cervic Station 24 Type Weight in lbs Pre/Post Dialysis Refused Weight 149.538414785905 BP Diastolic BP Location Tested BP Systolic BP Type 72 123 Fetus Heart Rate Present A 145 Fetus Movement A Yes Comments Doing well, no ctx, LOF, VB. Good movement. Was supposed to have US today, unsure of why it did not get scheduled. Will return next week for US, continue serial growths for circumvallate placenta. Rediscussed EIF, reassured patient. RTC for US then in 4 weeks for care. Flowsheet Date 11/06/2023 El Score Blood Edema Fundus Height Fundus Units Glucose Ketones Leukocytes Nitrite Labor Signs Protein Cervic Dilation Cervic Effacement Cervic Station Type Weight in lbs Pre/Post Dialysis Refused BP Diastolic BP Location Tested BP Systolic BP Type Fetus Heart Rate Present Fetus Movement Comments Flowsheet Date 11/28/2023 Le Score Blood Edema Fundus Height Fundus Units Glucose Ketones Leukocytes Nitrite Labor Signs Protein Cervic Dilation Cervic Effacement Cervic Station Type Weight in lbs Pre/Post Dialysis Refused BP Diastolic BP Location Tested BP Systolic BP Type Fetus Heart Rate Present Fetus Movement Comments Flowsheet Date 11/28/2023 El Score Blood Edema Fundus Height Fundus Units Glucose Ketones Leukocytes Nitrite Labor Signs Protein Cervic Dilation Cervic Effacement Cervic Station Type Weight in lbs Pre/Post Dialysis Refused Weight 153.255646014193 BP Diastolic BP Location Tested BP Systolic BP Type 78 116 Fetus Heart Rate Present Fetus Movement A Yes Comments Good movement. No cram ping or bleeding. GCT today. EFW 77%, vertex. No EIF seen. Continue serial growth US. Discussed Tdap. RTC 2 weeks. Flowsheet Date 12/12/2023 El Score Blood Edema Fundus Height Fundus Units Glucose Ketones Leukocytes Nitrite Labor Signs Protein Cervic Dilation Cervic Effacement Cervic Station 30 Type Weight in lbs Pre/Post Dialysis Refused Weight 156.115341816823 BP Diastolic BP Location Tested BP Systolic BP Type 73 125 Fetus Heart Rate Present A 145 Fetus Movement A Yes Comments Good movement. No ctx, LOF, VB. Having extra stress at work due to tax season. Has not yet received Tdap vaccine. Repeat growth US next visit for circumvallate placenta. Flowsheet Date 12/30/2023 El Score Blood Edema Fundus Height Fundus Units Glucose Ketones Leukocytes Nitrite Labor Signs Protein Cervic Dilation Cervic Effacement Cervic Station Type Weight in lbs Pre/Post Dialysis Refused BP Diastolic BP Location Tested BP Systolic BP Type Fetus Heart Rate Present Fetus Movement Comments Flowsheet Date 12/30/2023 El Score Blood Edema Fundus Height Fundus Units Glucose Ketones Leukocytes Nitrite Labor Signs Protein Cervic Dilation Cervic Effacement Cervic Station Type Weight in lbs Pre/Post Dialysis Refused Weight 160.781558927241 BP Diastolic BP Location Tested BP Systolic BP Type 77 115 Fetus Heart Rate Present A 132 Fetus Movement A Yes Comments Baby active. No ctx, LOF, VB . Needs Tdap vaccine. , discussed pumping. EFW 46%, vertex. Normal SPRING. RTC 2 weeks. Flowsheet Date 01/12/2024 El Score Blood Edema Fundus Height Fundus Units Glucose Ketones Leukocytes Nitrite Labor Signs Protein Cervic Dilation Cervic Effacement Cervic Station Type Weight in lbs Pre/Post Dialysis Refused Weight 160.739912995872 BP Diastolic BP Location Tested BP Systolic BP Type 74 118 Fetus Heart Rate Present A 125 Fetus Movement A Yes Comments Good movement. Some BH contractions. No bleeding or LOF. Received Tdap vaccine. Considering EIL vs spontaneous labor, would like to decide at 37 weeks. Growth US next week for circumvallate placenta. Discussed GBS for next visit as well. RTC 1 week. Flowsheet Date 01/23/2024 El Score Blood Edema Fundus Height Fundus Units Glucose Ketones Leukocytes Nitrite Labor Signs Protein Cervic Dilation Cervic Effacement Cervic Station Type Weight in lbs Pre/Post Dialysis Refused BP Diastolic BP Location Tested BP Systolic BP Type Fetus Heart Rate Present Fetus Movement Comments Flowsheet Date 01/23/2024 El Score Blood Edema Fundus Height Fundus Units Glucose Ketones Leukocytes Nitrite Labor Signs Protein Cervic Dilation Cervic Effacement Cervic Station neg none none trace Type Weight in lbs Pre/Post Dialysis Refused Weight 163.090314600624 BP Diastolic BP Location Tested BP Systolic BP Type 79 L arm 119 sitting Fetus Heart Rate Present A 145 Fetus Movement A Yes Comments Patient c/o some BH ctx, bab y's head is low, external os of the cervix was open more than a cm, internal os could not be palpated due to posterior position, vertex, reassuring growth ultrasound today Flowsheet Date 01/30/2024 El Score Blood Edema Fundus Height Fundus Units Glucose Ketones Leukocytes Nitrite Labor Signs Protein Cervic Dilation Cervic Effacement Cervic Station 0cm 50% -3 Type Weight in lbs Pre/Post Dialysis Refused Weight 162.975673121783 BP Diastolic BP Location Tested BP Systolic BP Type 75 117 Fetus Heart Rate Present A 145 Fetus Movement A Yes Comments Doing well, some BH contract ions. No LOF or VB. Good movement. Discussed EIL, patient unsure. Will discuss with her this weekend. RTC 1 week. Menstrual History Last Menstrual Date Menses Monthly On Bcp Conception Prior Menses Frequency Hcg Plus Date Menarche Onset Age 0905/11/2023 Genetic Screening And Infection History Question Response Note Mental Retardation/Autism false Patient's Age Will Be 35 Yea rs Or Older At Estimated Date of Delivery false Thalassemia (Hebrew, Belarusian, Mediterranean, Or Background): MCV < 80 false Neural Tube Defect (Meningom yelocele, Spina Bifida, Or Anencephaly) false Congenital Heart Defect false Down Syndrome false Jose-Sachs (eg, Faith, Cajun, Gibraltarian-Ghanaian) f alse Gadiel Disease false Sickle Cell Disease Or Trait () false Hemophilia Or Other Blood Disorders false Muscular Dystrophy false Cystic Fibrosis false Ethel's Chorea false Intellectual Disability/Autism false If Yes, Was Person Tested For Fragile X? false Other Inherited Genetic Or Chromosomal Disorder true maternal cousin with FVL Maternal Metabolic Disorder (eg, Type 1 Diabetes, PKU) false Patient Or Baby's Father Had A Child With Defects Not Listed Above false Recurrent Loss, Or A Stillbirth false Medications (including Suppl ements, Vitamins, Herbs, OTC Drugs), Illicit/Recreational Drugs, Alcohol false If Yes, Agent(s) And Strength/Dosage false Any Other Genetic History false Live With Someone With TB Or Exposed To TB false Patient Or Partner Has History Of Genital Herpes false Rash Or Viral Illness Since Last Menstrual Perio d false History Of STD, Gonorrhea, Chlamydia, HPV, Syphi lis false Other Infection History false History of HIV false History of Hepatitis false Prior GBS-infected child false Hemoglobinopathy Or Carrier false Other Structural Defect false Recent Travel History Outside of Country false Delivery Information Delivery Date Delivery Type Labor Anesthesia Weeks Gestation Incision Type Labor Labor Length Hrs Delivered By Post Complications Tubal Sterilization Discharge Date Comments [facility] idural 38.2 false Sahni Maldonado MD placenta circumval late Discharge Information Feeding Method Contraceptive Method Maternal HG B and HCT Levels Ob Episode Information Episode Created Date Number of Fetuses Patient Bloodtype Patient rh Status Prepregnancy Weight lbs Domestic Partner Domestic Partner Phone Father Name Airworthiness Inspector Status 03/02/20 25 1 A Positive OPEN Fetus Data First Name Last Name Admitted to NICU Weight (g) Sex Living Outcome Pediatric Complications Fetus ID Race Codes Race Delivery Type [id number] Problems Problem Notes Problem Name Start Date End Date Resolution Snomed Code Not e Placenta circumvallata 04/26/2025 [id number] 0 32 week growth US Rufino Calculation [...] Date Ultra Sound Latest Days Gestation 0 [id number] 03/02/2025 09/11/19 26 0 Pre- Flowsheet Flowsheet [...] Weight in lbs Pre/Post Dialysis Refused Weight 129.29449132785 BP Diastolic BP Location Tested BP Systolic BP Type 79 L arm 122 sitting Fetus Heart Rate Present Fetus Movement A No Comments Patient presents to [facility] care. Hx of anxiety/depression, on Wellbutrin. otherwise uncomplicated. No nausea or cramping. NT/NB wnl today, desires NIPT. Will draw today with new OB labs. RTC 4 weeks for routine care. Flowsheet Date 03/30/2025 El Score Blood Edema Fundus Height Fundus Units Glucose Ketones Leukocytes Nitrite Labor Signs Protein Cervic Dilation Cervic Effacement Cervic Station Type Weight in lbs Pre/Post Dialysis Refused Weight 130.987927415188 BP Diastolic BP Location Tested BP Systolic [...] Weight in lbs Pre/Post Dialysis Refused Weight 135.824872141292 BP Diastolic BP Location Tested BP Systolic [...] Weight in lbs Pre/Post Dialysis Refused Weight 137.179196942428 BP Diastolic BP Location Tested BP Systolic BP Type 72 L arm 108 sitting Fetus Heart Rate Present A 135 Fetus Movement A Yes Comments Doing well, getting over sin us infection. Good movement. No cramping or bleeding. EFw 68%, normal fluid. Repeat at 32 weeks. Going to [place] on Friday, discussed travel precautions. RTC 4 weeks. Flowsheet Date 06/24/2025 El Score Blood Edema Fundus Height Fundus Units Glucose Ketones Leukocytes Nitrite Labor Signs Protein Cervic Dilation Cervic Effacement Cervic Station Type Weight in lbs Pre/Post Dialysis Refused Weight 142.674884111259 BP Diastolic BP Location Tested BP Systolic [...] Type Weight in lbs Pre/Post Dialysis Refused 144.102500920960 BP Diastolic BP Location Tested BP Systolic [...] Type Weight in lbs Pre/Post Dialysis Refused 147.631254482044 BP Diastolic BP Location Tested BP Systolic [...] Type Weight in lbs Pre/Post Dialysis Refused 152.651593870116 BP Diastolic BP Location Tested BP Systolic [...] Weight in lbs Pre/Post Dialysis Refused Weight 151.635229736202 BP Diastolic BP Location Tested BP Systolic [...] Weight in lbs Pre/Post Dialysis Refused Weight 157.284547590096 BP Diastolic BP Location Tested BP Systolic [...]
--- OUTSIDE RECORDS SUMMARY | 2025-08-23 23:11 | XMS_ITS | Continuity of Care Document ---
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 Name Role Phone CATARINAMILANO Primary Care Provider [...] Not Available Lalita jasso [address], [place], [address], 03/09/2025 17:04:01 03/09/20 25 03/09/2025 [UNIT Y] ANEUP LOIDY NIPT 22Q11.2 microdeletio n LOW RISK <1 in 10,000 normal Not Available Aníbal persaud [address], [place], [address], 03/09/2025 17:04:01 03/09/20 25 03/09/2025 [UNIT Y] ANEUP LOIDY NIPT sex chromosome aneuploidy NOT DETECT ED normal Not Available [facility] [address], [place], [address], 03/09/2025 17:04:01 03/09/20 25 03/09/2025 [UNIT Y] ANEUP LOIDY NIPT monosomy X LOW RISK <1 in 10,000 normal Not Available [facility] [address], [place], [address], 03/09/2025 17:04:01 03/09/20 25 03/09/2025 [UNIT Y] ANEUP LOIDY NIPT trisomy 13 LOW RISK <1 in 10,000 normal Not Available [facility] [address], [place], [address], 03/09/2025 17:04:01 03/09/20 25 03/09/2025 [UNIT Y] ANEUP LOIDY NIPT trisomy 18 LOW RISK <1 in 10,000 normal Not Available [facility] [address], [place], [address], 03/09/2025 17:04:01 03/09/20 25 03/09/2025 [UNIT Y] ANEUP LOIDY NIPT trisomy 21 LOW RISK <1 in 10,000 normal Not Available [facility] [address], [place], [address], 03/09/2025 17:04:01 03/09/20 25 03/09/2025 [UNIT Y] ANEUP LOIDY NIPT sex MALE normal Not Available [facility] [address], [place], [address], 03/09/2025 17:04:01 03/09/20 25 03/09/2025 [UNIT Y] ANEUP LOIDY NIPT gestation SINGLE TON normal Not Available [facility] [address], [place], [address], 03/09/2025 17:04:01 03/09/20 25 03/09/2025 [UNIT Y] ANEUP LAKHWINDER NIPT for detailed report, see pdf See PDF normal Not Available [facility] [address], [place], [address], 03/09/2025 17:04:01 03/02/20 25 03/02/2025 CBC W/DIF F WBC 12.0 10'3/ uL 3.5-10 .5 high Not Available [facility] (Lab) [address], [place], [address], 03/03/2025 12:10:29 03/02/20 25 03/02/2025 CBC W/DIF F RBC 4.15 10'6/ uL (based on docume nted legal sex) 3.80-5 .20 Not Available [facility] (Lab) [address], [place], [address], 03/03/2025 12:10:29 03/02/20 25 03/02/2025 CBC W/DIF F HGB 12.9 g/dL (based on docume nted legal sex) 11.6-1 5.4 Not Available [facility] (Lab) [address], [place], [address], 03/03/2025 12:10:29 03/02/20 25 03/02/2025 CBC W/DIF F HCT 37.6 % (based on docume nted legal sex) 34.0-4 5.0 Not Available [facility] (Lab) [address], [place], [address], 03/03/2025 12:10:29 03/02/20 25 03/02/2025 CBC W/DIF F MCV 90.6 fL 80.0-9 9.0 Not Available [facility] (Lab) [address], [place], [address], 03/03/2025 12:10:29 03/02/20 25 03/02/2025 CBC W/DIF F MCH 31.1 pg 27.0-3 4.0 Not Available [facility] (Lab) [address], [place], [address], 03/03/2025 12:10:29 03/02/20 25 03/02/2025 CBC W/DIF F MCHC 34.3 g/dL 32.0-3 5.5 Not Available [facility] (Lab) [address], [place], [address], 03/03/2025 12:10:29 03/02/20 25 03/02/2025 CBC W/DIF F RDW 11.9 % 11.0-1 5.0 Not Available [facility] (Lab) [address], [place], [address], 03/03/2025 12:10:29 03/02/20 25 03/02/2025 CBC W/DIF F plt 344 10'3/ uL 150-40 0 Not Available [facility] (Lab) [address], [place], [address], 03/03/2025 12:10:29 03/02/20 25 03/02/2025 CBC W/DIF F MPV 9.8 fL 8.8-12 .1 Not Available [facility] (Lab) [address], [place], [address], 03/03/2025 12:10:29 03/02/2003/02/2025 CBC W/DIF F NRBC's 0.0 % 0.0 Not Available [facility] (Lab) [address], [place], [address], 03/03/2025 12:10:29 03/02/20 25 03/02/2025 CBC W/DIF F absolute NRBCs 0.0 10'3/ uL no refere nce range establ ished Not Available [facility] (Lab) [address], [place], [address], 03/03/2025 12:10:29 03/02/20 25 03/02/2025 CBC W/DIF F neutrophils 74.6 % 34.0-7 3.0 high Not Available [facility] (Lab) [address] [place], [address], 03/03/2025 12:10:29 03/02/20 25 03/02/2025 CBC W/DIF F lymphocytes 19.0 % 15.0-5 0.0 Not Available [facility] (Lab) [address] [place], [address], 03/03/2025 12:10:29 03/02/20 25 03/02/2025 CBC W/DIF F monocytes 5.0 % 1.0-15 .0 Not Available [facility] (Lab) [address] [place], [address], 03/03/2025 12:10:29 03/02/20 25 03/02/2025 CBC W/DIF F eosinophils 0.7 % 0.0-8. 0 Not Available [facility] (Lab) [address] [place], [address], 03/03/2025 12:10:29 03/02/20 25 03/02/2025 CBC W/DIF F basophils 0.4 % 0.0-2. 0 Not Available [facility] (Lab) [address] [place], [address], 03/03/2025 12:10:29 03/02/20 25 03/02/2025 CBC W/DIF [...] separ ately if prese nt. Not Available [facility] (Lab) [address] [place], [address], 03/03/2025 12:10:29 03/02/20 25 03/02/2025 CBC W/DIF F absolute neutrophils 8.9 10'3/ uL 1.5-8. 0 high Not Available [facility] (Lab) [address], [place], [address], 03/03/2025 12:10:29 03/02/20 25 03/02/2025 CBC W/DIF F absolute lymphocytes 2.3 10'3/ uL 1.0-4. 0 Not Available [facility] (Lab) [address], [place], [address], 03/03/2025 12:10:29 03/02/20 25 03/02/2025 CBC W/DIF F absolute monocytes 0.6 10'3/ uL 0.2-1. 0 Not Available [facility] (Lab) [address], [place], [address], 03/03/2025 12:10:29 03/02/20 25 03/02/2025 CBC W/DIF F absolute eosinophils 0.1 10'3/ uL 0.0-0. 6 Not Available [facility] (Lab) [address], [place], [address], 03/03/2025 12:10:29 03/02/20 25 03/02/2025 CBC W/DIF F absolute basophils 0.1 10'3/ uL 0.0-0. 3 Not Available [facility] (Lab) [address], [place], [address], 03/03/2025 12:10:29 03/02/20 25 03/02/2025 CBC W/DIF F absolute immature granulocytes 0.0 10'3/ uL 0.00-0 .10 Refer ence range s for nonbi nary/ inter sex or unspe cifie d gende r patie nts have not been estab lishe d. [facility]as [facility] for range s estab lishe d for cisge nder patie nts and evalu ate in the clini adam raymond xt of the indiv idual patie nt: https ://alejandro gonzalez book. nm.or g/gen derx Not Available [facility] (Lab) [address], [place], [address], 03/03/2025 12:10:29 03/02/20 25 03/02/2025 HIV 1/2 ANTIG EN/AN TIBOD Y, REFLE X CONFI RMATI ON HIV antigen/anti body Nonrea ctive nonrea ctive HIV-1 antig en and HIV-1 /HIV- 2 antib odies were not detec viktor. No labor atory evide nce of HIV infec tion. Not Available [facility] (Lab) [address], [place], [address], 03/03/2025 12:10:29 03/02/2003/02/2025 HEPAT ITIS B SURFA CE ANTIG EN hepatitis B surface antigen Non-re active non-re active This assay was perfo rmed using [employer] ratio n reage nts and test kits. Value s obtai celina with other assay metho ds or kits canno t be used inter cano eably . Not Available [facility] (Lab) [address], [place], [address], 03/03/2025 12:10:30 03/02/20 25 03/02/2025 HEPAT ITIS C ANTIB SYD SCREE N, REFLE X TO CONFI RMATI ON hepatitis C antibody Non-re active non-re active Antib odies to HCV Not Detec viktor, does not exclu de the possi bilit y of expos ure to HCV. Not Available [facility] (Lab) [address], [place], [address], 03/03/2025 12:10:30 03/02/2003/02/2025 TSH, REFLE X FREE T4 TSH 2.17 uIU/m L 0.30-5 .33 Not Available [facility] (Lab) [address], [place], [address], 03/03/2025 12:10:30 03/02/20 25 03/02/2025 RUBEL LA IGG ANTIB SYD, QUANT rubella antibodies, IgG Reacti ve reacti ve Not Available [facility] (Lab) [address], [place], [address], 03/03/2025 12:10:31 03/02/20 25 03/02/2025 RUBEL LA IGG ANTIB SYD, QUANT rubella antibodies, IgG quant 20.9 IU/mL >=10 Non-r eacti ve (Non- Immun e) <10 IU/mL React gustavo (Immu ne) > or = 10 IU/mL Not Available [facility] (Lab) [address], [place], [address], 03/03/2025 12:10:31 03/02/20 25 03/02/2025 TYPE/ RH/SC REEN ABO/Rh type A POS Not Available [facility] (Lab) [address] [place], [address], 03/03/2025 12:10:31 03/02/20 25 03/02/2025 TYPE/ RH/SC REEN antibody screen NEG Not Available [facility] (Lab) [address], [place], [address], 03/03/2025 12:10:31 03/02/20 25 03/02/2025 TYPE/ RH/SC REEN exp date 2024 23:59 Not Available [facility] (Lab) [address], [place], [address], 03/03/2025 12:10:31 03/02/20 25 03/02/2025 HEMOG LOBIN [...] >8.0% Actio n sugge sted Not Available [facility] (Lab) [address], [place], [address], 03/03/2025 12:10:31 03/02/20 25 03/02/2025 RPR SCREE N, REFLE X TITER /CONF IRMAT ION RPR qualitative Nonrea ctive nonrea ctive Not Available [facility] (Lab) [address], [place], [address], 03/03/2025 12:10:32 05/27/20 25 05/27/2025 CULTU RE: URINE result report SEE RESULT S BELOW Test: Cultu re: Urine Speci men Sourc e: Urine - Clean Catch Speci men Type: Urine Speci men Date: 2024 1053 Resul t Date: 2024 2233 Resul t Statu s: Final resul t Abnor mal: No Resul ting Lab: [facility] [address] [facility] [facility] [address] Tel: CULTU RE ----- ----- ----- --- No growt h in 1 day (dete ction level of 10,00 0 colon ies / ml.) Not Available [facility] (Lab) [address], [place], [address], 05/28/2025 23:37:55 06/24/20 25 06/24/2025 HEMAT OCRIT (HCT) HCT 32.6 % (based on docume nted legal sex) 34.0-4 5.0 low Not Available [facility] (Lab) [address], [place], [address], 06/25/2025 14:14:21 06/24/20 25 06/24/2025 HEMOG LOBIN (HGB) HGB 10.3 g/dL (based on docume nted legal sex) 11.6-1 5.4 low Not Available [facility] (Lab) [address], [place], [address], 06/25/2025 14:14:22 06/24/20 25 06/24/2025 GTT - GESTA DHAVAL L SCREE N, ACOG OB glucose, 1 hour screen 70 mg/dL 70-135 Not Available [facility] (Lab) [address], [place], [address], 06/25/2025 14:14:22 06/24/20 25 06/24/2025 HIV 1/2 ANTIG EN/AN TIBOD Y, REFLE X CONFI RMATI ON HIV antigen/anti body Nonrea ctive nonrea ctive HIV-1 antig en and HIV-1 /HIV- 2 antib odies were not detec viktor. No labor atory evide nce of HIV infec tion. Not Available [facility] (Lab) [address], [place], [address], 06/25/2025 14:14:22 06/24/2006/24/2025 RPR SCREE N, REFLE X TITER /CONF IRMAT ION RPR qualitative Nonrea ctive nonrea ctive Not Available [facility] (Lab) [address], [place], [address], 06/25/2025 14:14:23 03/02/20 25 03/02/2025 US, obste tric, nucha l trans lucen cy No observ ation record ed. [facility] [address], [place], [address], 03/02/2025 17:50:41 03/02/20 25 03/02/2025 US, obste tric, 1st trime ster No observ ation record ed. [facility] [address], [place], [address], 03/02/2025 17:50:51 03/02/20 25 03/02/2025 US, obste tric, nucha l trans lucen cy No observ ation record ed. [email or web address] [address], [place], [address], 03/02/2025 16:58:55 04/26/20 25 04/26/2025 US, obste tric, 2nd trime ster No observ ation record ed. [address], [place], [address], 04/27/2025 09:50:11 04/26/20 25 04/26/2025 US, obste tric, 2nd or 3rd trime ster No observ ation record ed. [email or web address] [place] [address], [place], [address], 04/26/2025 18:15:52 05/27/20 25 05/27/2025 US, obste tric, follo w-up No observ ation record ed. [facility] [address], [place], [address], 05/27/2025 14:03:34 05/27/20 25 05/27/2025 US, obste tric, follo w-up No observ ation record ed. [email or web address] [address], [place], [address], 05/27/2025 14:07:05 07/22/20 25 07/22/2025 US, obste tric, follo w-up No observ ation record ed. [facility] [address], [place], [address], 07/22/2025 13:46:42 07/22/20 25 07/22/2025 US, obste tric, follo w-up No observ ation record ed. [email or web address] [address], [place], [address], 08/08/2025 11:16:18 Result Notes None recorded. Problems Name Problem SNOMED Code Status Onset Date Resolution Date Notes Provider Name and Address Organization Details Recorded Time Family history of Factor V Leiden mutation 7445447683 [id number] Completed testing negative 08/06 Megan Kwan [facility], [facility] 4 13:41:32 Placenta circumva llata 7569537 Completed serial growth Megan Kwan [facility], [facility] 4 13:41:32 Pregnanc y 23462755 Completed 202202/09/2024 SHAR Montoya [facility] 5 16:16:10 Pregnanc y 90946983 Active 2024 SHAR Montoya [facility] 5 16:16:09 Placenta circumva llata 7772473 Active 2024 32 week growth US SHANI MALDONADO MD [address], [place], [address], [facility] 5 18:25:20 Placenta circumva llata 8262328 Active 2024 32 week growth US SHANI MALDONADO MD [address], [place], [address], [facility] 5 18:25:20 Problem Notes None recorded. Procedures Surgical History Date Name Laterality Status Provider Name and Address Organization Details Recorded Time 04/24/2023 Date of Last Pap Smear completed Karime Galvin [facility] 02/02/2025 17:02:43 Imaging Results None [...] and Address Organization Details Last Updated DateTime 06/24/2025 162.56 cm 24.4 kg/m2 46490.12 g 120/78 mm[Hg] Valerie Ortiz [facility] 06/24/2025 10:14:26 Social History Question Answer Notes LastModified by Organizat ion Details LastModified Time Tobacco Smoking Status Never Smoker Shirin chapman [facility] 10/01/2023 17:03:25 Are You Blind [...] Or The Highest Degree You Have Received? 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 Occasional Information not available 11/28/2023 Mental Status Question Answer Note LastModified by Organization D etails LastModified Time Do you feel stressed (tense, restless, nervous, or anxious, or unable to sleep at night)? [id number] Information not available 09/03/2023 Family History Relationship Description Onset Age of this Age Resolved Age Notes LastModified by Organization Details LastModified Time Maternal Aunt Anemia [email or web address] Not avail able 07/03/2023 15:51:07 Maternal Uncle Heart disease [email or web address] Not available 2022 15:51:07 Mother Disorder of thyroid gland Not available 2023 16:37:13 Mother Anemia [email or web address] Not available 01/30/2024 16:37:13 Maternal Grandmother Heart disease [email or web address] Not available 2023 16:37:13 Medical History Condition Response Allergies (Food, seasonal, environmental ) N Other N Drug/Latex Allergies/Reactions N Blood Transfusion N Breast Cancer N Dermatologic Disorders N Lung Disease N Defects or Inherited Disease N Breast Problem N Gestational Diabetes N Hematologic disorders N Anesthesia Complications N History of STI N Deep Vein Thrombosis N Polycystic ovary syndrome N Anxiety Disorder Y Autoimmune disease N Arthritis N Polyps N Infertility N Acid Reflux (GERD) N History of abnormal pap N Cancer N Varicosities N Stroke N Neurologic/Epilepsy N Endometriosis N High Cholesterol N Fibromyalgia N Headaches N Kidney Disease N Heart Problems N Thyroid Problems N Kidney or Bladder Problems N GI Problems N Eating Disorder [...] ICD10 Code Diagnosis IMO Codes Diagnosis Note [id number] SHANI MALDONADO MD [place] [address] [address] 05/27/2025 09:50:56 05/27/2025 10:31:05 Observational assessment 013473779 Z03.74 Z3A.24 [id number] SHANI MALDONADO MD [place] [address] [address] 05/27/2025 09:55:25 05/27/2025 11:14:20 screening 288679629 Z36.89 s ruvalcaba of fetus 25060863 Z34.90 [id number] Placenta circumvallata 4525327 O43.212 9577252 Gestation period, 24 weeks 814658844 Z3A.24 9746469 [id number] SHANI MALDONADO MD [place] [address] [address] 06/24/2025 10:01:03 06/24/2025 10:41:54 Placenta circumvallata 6421840 O43.307 8420175 Gestation period, 28 weeks 04248939 Z3A.28 [id number] Health Concerns Section Related Observation LastModified by Organization Detai ls LastModified Time None Recorded Concern Status LastModified by Organization Details LastModified Time None Recorded Payers Encounter Date Sequence Insurance Name Policy Number Policy Monteiro Covered Member ID Monteiro Member ID Guarantor Name 06/24/2025 1 [employer] - [employer] - [employer]S LOCAL [id number] (PPO) [id number] Jeff Vazquez [id number] Lucita Vazquez Notes Date Note Type Note Provider Name and Address Organization Details Recorded Time 06/24/2025 text/html Generic HPI TemplateReported by Patient SHANI MALDONADO MD [address], [place], [address], [facility] 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 Status 03/02/20 25 1 A Positive OPEN Fetus Data First Name Last Name Admitted to NICU Weight (g) Sex Living Outcome Pediatric Complications Fetus ID Race Codes Race Delivery Type [id number] Problems Problem Notes Problem Name Start Date End Date Resolution Snomed Code Not e Placenta circumvallata 04/26/2025 519147 0 32 week growth US Rufino Calculation [...] Date Ultra Sound Latest Days Gestation 0 [id number] 03/02/2025 09/11/19 26 0 Pre- Flowsheet Flowsheet [...] Weight in lbs Pre/Post Dialysis Refused Weight 129.19943367844 BP Diastolic BP Location Tested BP Systolic BP Type 79 L arm 122 sitting Fetus Heart Rate Present Fetus Movement A No Comments Patient presents to [facility]. Hx of anxiety/depression, on [...] Weight in lbs Pre/Post Dialysis Refused Weight 130.142751784452 BP Diastolic BP Location Tested BP Systolic [...] Weight in lbs Pre/Post Dialysis Refused Weight 135.475030747018 BP Diastolic BP Location Tested BP Systolic [...] Weight in lbs Pre/Post Dialysis Refused Weight 137.181986161411 BP Diastolic BP Location Tested BP Systolic BP Type 72 L arm 108 sitting Fetus Heart Rate Present A 135 Fetus Movement A Yes Comments Doing well, getting over sin us infection. Good movement. No cramping or bleeding. EFw 68%, normal fluid. Repeat at 32 weeks. Going to [place] on Friday, discussed travel precautions. RTC 4 weeks. Flowsheet Date 06/24/2025 El Score Blood Edema Fundus Height Fundus Units Glucose Ketones Leukocytes Nitrite Labor Signs Protein Cervic Dilation Cervic Effacement Cervic Station Type Weight in lbs Pre/Post Dialysis Refused Weight 142.400760952669 BP Diastolic BP Location Tested BP Systolic [...] Type Weight in lbs Pre/Post Dialysis Refused 144.108886450390 BP Diastolic BP Location Tested BP Systolic [...] Type Weight in lbs Pre/Post Dialysis Refused 147.274450030845 BP Diastolic BP Location Tested BP Systolic [...] Type Weight in lbs Pre/Post Dialysis Refused 152.906121746334 BP Diastolic BP Location Tested BP Systolic [...] Weight in lbs Pre/Post Dialysis Refused Weight 151.988494178301 BP Diastolic BP Location Tested BP Systolic [...] Weight in lbs Pre/Post Dialysis Refused Weight 157.221333127035 BP Diastolic BP Location Tested BP Systolic [...]
--- OUTSIDE RECORDS SUMMARY | 2025-08-23 23:11 | XMS_ITS | Continuity of Care Document ---
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 Name Role Phone CATARINAMILANO Primary Care Provider [...] Not Available Lalita jasso [address], [place], [address], 03/09/2025 17:04:01 03/09/20 25 03/09/2025 [UNIT Y] ANEUP LOIDY NIPT 22Q11.2 microdeletio n LOW RISK <1 in 10,000 normal Not Available Aníbal persaud [address], [place], [address], 03/09/2025 17:04:01 03/09/20 25 03/09/2025 [UNIT Y] ANEUP LOIDY NIPT sex chromosome aneuploidy NOT DETECT ED normal Not Available [facility] [address], [place], [address], 03/09/2025 17:04:01 03/09/20 25 03/09/2025 [UNIT Y] ANEUP LOIDY NIPT monosomy X LOW RISK <1 in 10,000 normal Not Available [facility] [address], [place], [address], 03/09/2025 17:04:01 03/09/20 25 03/09/2025 [UNIT Y] ANEUP LOIDY NIPT trisomy 13 LOW RISK <1 in 10,000 normal Not Available [facility] [address], [place], [address], 03/09/2025 17:04:01 03/09/20 25 03/09/2025 [UNIT Y] ANEUP LOIDY NIPT trisomy 18 LOW RISK <1 in 10,000 normal Not Available [facility] [address], [place], [address], 03/09/2025 17:04:01 03/09/20 25 03/09/2025 [UNIT Y] ANEUP LOIDY NIPT trisomy 21 LOW RISK <1 in 10,000 normal Not Available [facility] [address], [place], [address], 03/09/2025 17:04:01 03/09/20 25 03/09/2025 [UNIT Y] ANEUP LOIDY NIPT sex MALE normal Not Available [facility] [address], [place], [address], 03/09/2025 17:04:01 03/09/20 25 03/09/2025 [UNIT Y] ANEUP LOIDY NIPT gestation SINGLE TON normal Not Available [facility] [address], [place], [address], 03/09/2025 17:04:01 03/09/20 25 03/09/2025 [UNIT Y] ANEUP LAKHWINDER NIPT for detailed report, see pdf See PDF normal Not Available [facility] [address], [place], [address], 03/09/2025 17:04:01 03/02/20 25 03/02/2025 CBC W/DIF F WBC 12.0 10'3/ uL 3.5-10 .[address] [facility] (Lab) [address] [facility], [place], [address], 03/03/2025 12:10:29 03/02/20 25 03/02/2025 CBC W/DIF F RBC 4.15 10'6/ uL (based on docume nted legal sex) 3.80-[address] [facility] (Lab) [address] [facility], [place], [address], 03/03/2025 12:10:29 03/02/20 25 03/02/2025 CBC W/DIF F HGB 12.9 g/dL (based on docume nted legal sex) 11.6-[address] [facility] (Lab) [address] [facility], [place], [address], 03/03/2025 12:10:29 03/02/20 25 03/02/2025 CBC W/DIF F HCT 37.6 % (based on docume nted legal sex) 34.0-[address] [facility] (Lab) [address] [facility], [place], [address], 03/03/2025 12:10:29 03/02/20 25 03/02/2025 CBC W/DIF F MCV 90.6 fL 80.0-[address] [facility] (Lab) [address] [facility], [place], [address], 03/03/2025 12:10:29 03/02/20 25 03/02/2025 CBC W/DIF F MCH 31.1 pg 27.0-[address] [facility] (Lab) [address] [facility], [place], [address], 03/03/2025 12:10:29 03/02/20 25 03/02/2025 CBC W/DIF F MCHC 34.3 g/dL 32.0-[address] [facility] (Lab) [address] [facility], [place], [address], 03/03/2025 12:10:29 03/02/20 25 03/02/2025 CBC W/DIF F RDW 11.9 % 11.0-[address] [facility] (Lab) [address] [facility], [place], [address], 03/03/2025 12:10:29 03/02/20 25 03/02/2025 CBC W/DIF F plt 344 10'3/ uL 150-[address] [facility] (Lab) [address] [facility], [place], [address], 03/03/2025 12:10:29 03/02/20 25 03/02/2025 CBC W/DIF F MPV 9.8 fL 8.8-[address] [facility] (Lab) [address] [facility], [place], [address], 03/03/2025 12:10:29 03/02/2003/02/2025 CBC W/DIF F NRBC's 0.0 % 0.[address] [facility] (Lab) [address] [facility], [place], [address], 03/03/2025 12:10:29 03/02/20 25 03/02/2025 CBC W/DIF F absolute NRBCs 0.0 10'3/ uL no refere nce range establ ished Not Available [facility] (Lab) [address] [facility], [place], [address], 03/03/2025 12:10:29 03/02/20 25 03/02/2025 CBC W/DIF F neutrophils 74.6 % 34.0-7 3[address] [facility] (Lab) [address] [place], [address], 03/03/2025 12:10:29 03/02/20 25 03/02/2025 CBC W/DIF F lymphocytes 19.0 % 15.0-[address] [facility] (Lab) [address] [place], [address], 03/03/2025 12:10:29 03/02/20 25 03/02/2025 CBC W/DIF F monocytes 5.0 % 1.0-[address] [facility] (Lab) [address] [place], [address], 03/03/2025 12:10:29 03/02/20 25 03/02/2025 CBC W/DIF F eosinophils 0.7 % 0.0-8. [address] [facility] (Lab) [address] [place], [address], 03/03/2025 12:10:29 03/02/20 25 03/02/2025 CBC W/DIF F basophils 0.4 % 0.0-2. [address] [facility] (Lab) [address] [place], [address], 03/03/2025 12:10:29 03/02/20 25 03/02/2025 CBC W/DIF [...] separ ately if prese nt. Not Available [facility] (Lab) [address] [place], [address], 03/03/2025 12:10:29 03/02/20 25 03/02/2025 CBC W/DIF F absolute neutrophils 8.9 10'3/ uL 1.5-8. [address] [facility] (Lab) [address] [facility], [place], [address], 03/03/2025 12:10:29 03/02/20 25 03/02/2025 CBC W/DIF F absolute lymphocytes 2.3 10'3/ uL 1.0-4. [address] [facility] (Lab) [address] [facility], [place], [address], 03/03/2025 12:10:29 03/02/20 25 03/02/2025 CBC W/DIF F absolute monocytes 0.6 10'3/ uL 0.2-1. [address] [facility] (Lab) [address] [facility], [place], [address], 03/03/2025 12:10:29 03/02/20 25 03/02/2025 CBC W/DIF F absolute eosinophils 0.1 10'3/ uL 0.0-0. [address] [facility] (Lab) [address] [facility], [place], [address], 03/03/2025 12:10:29 03/02/20 25 03/02/2025 CBC W/DIF F absolute basophils 0.1 10'3/ uL 0.0-0. [address] [facility] (Lab) [address] [facility], [place], [address], 03/03/2025 12:10:29 03/02/20 25 03/02/2025 CBC W/DIF F absolute immature granulocytes 0.0 10'3/ uL 0.00-0 .10 Refer ence range s for nonbi nary/ inter sex or unspe cifie d gende r patie nts have not been estab lishe d. [facility]as e [facility] for range s estab lishe d for cisge nder patie nts and evalu ate in the clini adam raymond xt of the indiv idual patie nt: https ://alejandro gonzalez book. nm.or g/gen derx Not Available [facility] (Lab) [address], [place], [address], 03/03/2025 12:10:29 03/02/20 25 03/02/2025 HIV 1/2 ANTIG EN/AN TIBOD Y, REFLE X CONFI RMATI ON HIV antigen/anti body Nonrea ctive nonrea ctive HIV-1 antig en and HIV-1 /HIV- 2 antib odies were not detec viktor. No labor atory evide nce of HIV infec tion. Not Available [facility] (Lab) [address], [place], [address], 03/03/2025 12:10:29 03/02/2003/02/2025 HEPAT ITIS B SURFA CE ANTIG EN hepatitis B surface antigen Non-re active non-re active This assay was perfo rmed using [employer] ratio n reage nts and test kits. Value s obtai celina with other assay metho ds or kits canno t be used inter cano eably . Not Available [facility] (Lab) [address], [place], [address], 03/03/2025 12:10:30 03/02/20 25 03/02/2025 HEPAT ITIS C ANTIB SYD SCREE N, REFLE X TO CONFI RMATI ON hepatitis C antibody Non-re active non-re active Antib odies to HCV Not Detec viktor, does not exclu de the possi bilit y of expos ure to HCV. Not Available [facility] (Lab) [address], [place], [address], 03/03/2025 12:10:30 03/02/2003/02/2025 TSH, REFLE X FREE T4 TSH 2.17 uIU/m L 0.30-[address] [facility] (Lab) [address], [place], [address], 03/03/2025 12:10:30 03/02/20 25 03/02/2025 RUBEL LA IGG ANTIB SYD, QUANT rubella antibodies, IgG Reacti ve reacti ve Not Available [facility] (Lab) [address] [facility], [place], [address], 03/03/2025 12:10:31 03/02/20 25 03/02/2025 RUBEL LA IGG ANTIB SYD, QUANT rubella antibodies, IgG quant 20.9 IU/mL >=10 Non-r eacti ve (Non- Immun e) <10 IU/mL React gustavo (Immu ne) > or = 10 IU/mL Not Available [facility] (Lab) [address] [facility], [place], [address], 03/03/2025 12:10:31 03/02/20 25 03/02/2025 TYPE/ RH/SC REEN ABO/Rh type A POS Not Available [facility] (Lab) [address] [place], [address], 03/03/2025 12:10:31 03/02/20 25 03/02/2025 TYPE/ RH/SC REEN antibody screen NEG Not Available [facility] (Lab) [address] [facility], [place], [address], 03/03/2025 12:10:31 03/02/20 25 03/02/2025 TYPE/ RH/SC REEN exp date 2024 23:[address] [facility] (Lab) [address] [facility], [place], [address], 03/03/2025 12:10:31 03/02/20 25 03/02/2025 HEMOG LOBIN [...] >8.0% Actio n sugge sted Not Available [facility] (Lab) [address] [facility], [place], [address], 03/03/2025 12:10:31 03/02/20 25 03/02/2025 RPR SCREE N, REFLE X TITER /CONF IRMAT ION RPR qualitative Nonrea ctive nonrea ctive Not Available [facility] (Lab) [address] [facility], [place], [address], 03/03/2025 12:10:32 05/27/20 25 05/27/2025 CULTU RE: URINE result report SEE RESULT S BELOW Test: Cultu re: Urine Speci men Sourc e: Urine - Clean Catch Speci men Type: Urine Speci men Date: 2024 1053 Resul t Date: 2024 2233 Resul t Statu s: Final resul t Abnor mal: No Resul ting Lab: [facility] [address] [facility] [address] Tel: CULTU RE ----- ----- ----- --- No growt h in 1 day (dete ction level of 10,00 0 colon ies / ml.) Not Available [facility] (Lab) [address] [facility], [place], [address], 05/28/2025 23:37:55 06/24/20 25 06/24/2025 HEMAT OCRIT (HCT) HCT 32.6 % (based on docume nted legal sex) 34.0-[address] [facility] (Lab) [address] [facility], [place], [address], 06/25/2025 14:14:21 06/24/20 25 06/24/2025 HEMOG LOBIN (HGB) HGB 10.3 g/dL (based on docume nted legal sex) 11.6-1 [address] [facility] (Lab) [address] [facility], [place], [address], 06/25/2025 14:14:22 06/24/20 25 06/24/2025 GTT - GESTA DHAVAL L SCREJah N, ACOG OB glucose, 1 hour screen 70 mg/dL 70-135 Not Available [facility] (Lab) [address] [facility], [place], [address], 06/25/2025 14:14:22 06/24/20 25 06/24/2025 HIV 1/2 ANTIG EN/AN TIBOD Y, REFLE X CONFI RMATI ON HIV antigen/anti body Nonrea ctive nonrea ctive HIV-1 antig en and HIV-1 /HIV- 2 antib odies were not detec viktor. No labor atory evide nce of HIV infec tion. Not Available [facility] (Lab) [address] [facility], [place], [address], 06/25/2025 14:14:22 06/24/20 25 06/24/2025 RPR SCREE N, REFLE X TITER /CONF IRMAT ION RPR qualitative Nonrea ctive nonrea ctive Not Available [facility] (Lab) [address] [place], [address], 06/25/2025 14:14:23 08/17/20 25 08/17/2025 CULTU RE: [...] Resul ting Lab: [facility] [address] [facility] [address] Tel: CULTU RE ----- ----- ----- --- No Group B strep isola viktor at 2 days (tiki ctive broth lisbet gamboa t) Not Available [facility] (Lab) [address], [place], [address], 08/20/2025 11:32:33 03/02/20 25 03/02/2025 US, obste tric, nucha l trans lucen cy No observ ation record ed. [facility] [address], [place], [address], 03/02/2025 17:50:41 03/02/20 25 03/02/2025 US, obste tric, 1st trime ster No observ ation record ed. [facility] [address], [place], [address], 03/02/2025 17:50:51 03/02/20 25 03/02/2025 US, obste tric, nucha l trans lucen cy No observ ation record ed. [email or web address] [address], [place], [address], 03/02/2025 16:58:55 04/26/20 25 04/26/2025 US, obste tric, 2nd trime ster No observ ation record ed. [address], [place], [address], 04/27/2025 09:50:11 04/26/20 25 04/26/2025 US, obste tric, 2nd or 3rd trime ster No observ ation record ed. [email or web address] [place] [address], [place], [address], 04/26/2025 18:15:52 05/27/20 25 05/27/2025 US, obste tric, follo w-up No observ ation record ed. [facility] [address], [place], [address], 05/27/2025 14:03:34 05/27/2005/27/2025 US, obste tric, follo w-up No observ ation record ed. [email or web address] [address], [place], [address], 05/27/2025 14:07:05 07/22/2007/22/2025 US, obste tric, follo w-up No observ ation record ed. [facility] [address], [place], [address], 07/22/2025 13:46:42 07/22/2007/22/2025 US, obste tric, follo w-up No observ ation record ed. [email or web address] [address], [place], [address], 08/08/2025 11:16:18 Result Notes None recorded. Problems Name Problem SNOMED Code Status Onset Date Resolution Date Notes Provider Name and Address Organization Details Recorded Time Family history of Factor V Leiden mutation [id number] Completed testing negative 08/06 Megan Kwan [facility] 4 13:41:32 Placenta circumva llata 2757812 Completed serial growth Mayajohnathan Aguirrele [facility] 4 13:41:32 Pregnanc y 65511775 Completed 202202/09/2024 SHAR Montoya [facility], [facility] 5 16:16:10 Pregnanc y 42275428 Active 2024 SHAR Montoya [facility] 5 16:16:09 Placenta circumva llata 6629481 Active 2024 32 week growth SHANI MALDONADO MD [address], [place], [address], [facility] 18:25:20 Placenta circumva llata 2856512 Active 2024 32 week growth SHANI MALDONADO MD [address], [place], [address], [facility] 18:25:20 Problem Notes None recorded. Procedures Surgical History Date Name Laterality Status Provider Name and Address Organization Details Recorded Time 04/24/2023 Date of Last Pap Smear completed Karime Galvin [facility] 02/02/2025 17:02:43 Imaging Results None recorded. [...] Updated DateTime 08/17/2025 162.56 cm 25.9 kg/m2 69957.45 g 131/77 mm[Hg] MURTAZA SELENA [facility] 08/17/2025 10:22:43 Social History Question Answer Notes LastModified by Organizat ion Details LastModified Time Tobacco Smoking Status Never Smoker Shirin Pressleyfredis chapman [facility] 10/01/2023 17:03:25 Are You Blind Or [...] Or The Highest Degree You Have Received? 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 Occasional Information not available 11/28/2023 Mental Status Question Answer Note LastModified by Organization D etails LastModified Time Do you feel stressed (tense, restless, nervous, or anxious, or unable to sleep at night)? [id number] Information not available 09/03/2023 Family History Relationship Description Onset Age of this Age Resolved Age Notes LastModified by Organization Details LastModified Time Maternal Aunt Anemia [email or web address] Not avail able 07/03/2023 15:51:07 Maternal Uncle Heart disease [email or web address] Not available 2022 15:51:07 Mother Disorder of thyroid gland [email or web address] Not available 2023 16:37:13 Mother Anemia [email or web address] Not available 01/30/2024 16:37:13 Maternal Grandmother Heart disease [email or web address] Not available 2023 16:37:13 Medical History Condition Response Allergies (Food, seasonal, environmental ) N Other N Blood Transfusion N Drug/Latex Allergies/Reactions N Breast Cancer N Dermatologic Disorders N [...] ICD10 Code Diagnosis IMO Codes Diagnosis Note [id number] SHANI MALDONADO MD [place] [address] [place] [address] 07/22/2025 10:16:16 07/22/2025 11:13:21 Placenta circumvallata 5948071 O43.113 Z03.74 Z3A.32 7779154 [id number] SHANI MALDONADO MD [place] [address] [place] [address] 07/22/2025 10:17:41 07/22/2025 11:28:37 Placenta circumvallata 7618552 O43.853 2843906 Gestation period, 32 weeks 6608848 Z3A.32 8619955 [id number] SHANI MALDONADO MD [place] [address] [place] [address] 08/10/2025 10:09:41 08/10/2025 10:43:57 care status [id number] Z34.83 14048579 [id number] SHANI MALDONADO MD [place] [address] [place] [address] 08/17/2025 10:01:02 08/17/2025 10:51:06 Placenta circumvallata 1840236 O43.174 5846522 Gestation period, 36 weeks 29850780 Z3A.36 [id number] Health Concerns Section Related Observation LastModified by Organization Detai ls LastModified Time None Recorded Concern Status LastModified by Organization Details LastModified Time None Recorded Payers Encounter Date Sequence Insurance Name Policy Number Policy Monteiro Covered Member ID Monteiro Member ID Guarantor Name 08/17/2025 1 [employer] - [employer]S LOCAL [id number] (PPO) [id number] Jeff Vazquez [id number] Lucita Vazquez Notes Date Note Type Note Provider Name and Address Organization Details Recorded Time 08/17/2025 text/html Generic HPI TemplateReported by Patient SHANI MALDONADO MD [address], [place], [address], [facility] 08/17/2025 10:50:46 OBGyn Episode Ob Episode Information Episode Created Date Number of Fetuses Patient Bloodtype Patient rh Status Prepregnancy Weight lbs Domestic Partner Domestic Partner Phone Father Name Ferryboat Helper Status 03/02/20 25 1 A Positive OPEN Fetus Data First Name Last Name Admitted to NICU Weight (g) Sex Living Outcome Pediatric Complications Fetus ID Race Codes Race Delivery Type [id number] Problems Problem Notes Problem Name Start Date End Date Resolution Snomed Code Not e Placenta circumvallata 04/26/2025 499397 0 32 week growth US Rufino Calculation [...] Date Ultra Sound Latest Days Gestation 0 [email or web address] 03/02/2025 09/11/19 26 0 Pre-ashly Flowsheet Flowsheet [...] Weight in lbs Pre/Post Dialysis Refused Weight 129.14645347562 BP Diastolic BP Location Tested BP Systolic BP Type 79 L arm 122 sitting Fetus Heart Rate Present Fetus Movement A No Comments Patient presents to [facility] care. Hx of anxiety/depression, on Wellbutrin. otherwise uncomplicated. No nausea or cramping. NT/NB wnl today, desires NIPT. Will draw today with new OB labs. RTC 4 weeks for routine care. Flowsheet Date 03/30/2025 El Score Blood Edema Fundus Height Fundus Units Glucose Ketones Leukocytes Nitrite Labor Signs Protein Cervic Dilation Cervic Effacement Cervic Station Type Weight in lbs Pre/Post Dialysis Refused Weight 130.762116414723 BP Diastolic BP Location Tested BP Systolic BP Type 70 L arm 117 sitting Fetus Heart Rate Present A 142 Present Fetus Movement A Yes Comments no complaints, no problems, routine care, no contractions, no vaginal bleeding, no loss of fluid, no cramping Flowsheet Date 04/26/2025 Le Score Blood Edema Fundus Height Fundus [...] Weight in lbs Pre/Post Dialysis Refused Weight 135.183625337817 BP Diastolic BP Location Tested BP Systolic [...] Weight in lbs Pre/Post Dialysis Refused Weight 137.152404737736 BP Diastolic BP Location Tested BP Systolic BP Type 72 L arm 108 sitting Fetus Heart Rate Present A 135 Fetus Movement A Yes Comments Doing well, getting over sin us infection. Good movement. No cramping or bleeding. EFw 68%, normal fluid. Repeat at 32 weeks. Going to [place] on Friday, discussed travel precautions. RTC 4 weeks. Flowsheet Date 06/24/2025 El Score Blood Edema Fundus Height Fundus Units Glucose Ketones Leukocytes Nitrite Labor Signs Protein Cervic Dilation Cervic Effacement Cervic Station Type Weight in lbs Pre/Post Dialysis Refused Weight 142.343400460809 BP Diastolic BP Location Tested BP Systolic [...] Type Weight in lbs Pre/Post Dialysis Refused 144.810632175638 BP Diastolic BP Location Tested BP Systolic [...] Type Weight in lbs Pre/Post Dialysis Refused 147.162726427169 BP Diastolic BP Location Tested BP Systolic [...] Type Weight in lbs Pre/Post Dialysis Refused 152.003655941665 BP Diastolic BP Location Tested BP Systolic [...] Weight in lbs Pre/Post Dialysis Refused Weight 151.172006886009 BP Diastolic BP Location Tested BP Systolic [...] Weight in lbs Pre/Post Dialysis Refused Weight 157.262332238701 BP Diastolic BP Location Tested BP Systolic [...]
--- OUTSIDE RECORDS SUMMARY | 2025-08-23 23:12 | XMS_ITS | Continuity of Care Document ---
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 [...] None recorded. Imaging None recorded. Medication Orders bupropion HCl XL 300 mg 24 hr tablet, extended release 2024 025 [facility], [address] [place], [address], 07/05/2025 10:01:51 Patient TargetsNo targets recorded. Patient InstructionsNo instructions recorded. Reason for Referral None Reported. Results Created Date Observation Date Name Description Value Unit Range Abnormal Flag Note LastModifiedBy Organization Detail LastModifiedTime 03/09/2003/09/2025 [UNIT Y] ANEUP LOIDY NIPT fraction 9.4% normal Not Available Lalita jasso [address], [place], [address], 03/09/2025 17:04:01 03/09/20 25 03/09/2025 [UNIT Y] ANEUP LOIDY NIPT 22Q11.2 microdeletio n LOW RISK <1 in 10,000 normal Not Available [facility] [address], [place], [address], 03/09/2025 17:04:01 03/09/20 25 03/09/2025 [UNIT Y] ANEUP LOIDY NIPT sex chromosome aneuploidy NOT DETECT ED normal Not Available [facility] [address], [place], [address], 03/09/2025 17:04:01 03/09/20 25 03/09/2025 [UNIT Y] ANEUP LOIDY NIPT monosomy X LOW RISK <1 in 10,000 normal Not Available [facility] [address], [place], [address], 03/09/2025 17:04:01 03/09/20 25 03/09/2025 [UNIT Y] ANEUP LOIDY NIPT trisomy 13 LOW RISK <1 in 10,000 normal Not Available [facility] [address], [place], [address], 03/09/2025 17:04:01 03/09/20 25 03/09/2025 [UNIT Y] ANEUP LOIDY NIPT trisomy 18 LOW RISK <1 in 10,000 normal Not Available [facility] [address], [place], [address], 03/09/2025 17:04:01 03/09/20 25 03/09/2025 [UNIT Y] ANEUP LOIDY NIPT trisomy 21 LOW RISK <1 in 10,000 normal Not Available [facility] [address], [place], [address], 03/09/2025 17:04:01 03/09/20 25 03/09/2025 [UNIT Y] ANEUP LOIDY NIPT sex MALE normal Not Available [facility] [address], [place], [address], 03/09/2025 17:04:01 03/09/20 25 03/09/2025 [UNIT Y] ANEUP LOIDY NIPT gestation SINGLE TON normal Not Available [facility] [address], [place], [address], 03/09/2025 17:04:01 03/09/20 25 03/09/2025 [UNIT Y] ANEUP LOIDY NIPT for detailed report, see pdf See PDF normal Not Available [facility] [address], [place], [address], 03/09/2025 17:04:01 03/02/20 25 03/02/2025 CBC W/DIF F WBC 12.0 10'3/ uL 3.5-10 .5 high Not Available [facility] (Lab) [address], [place], [address], 03/03/2025 12:10:29 03/02/20 25 03/02/2025 CBC W/DIF F RBC 4.15 10'6/ uL (based on docume nted legal sex) 3.80-5 .20 Not Available [facility] (Lab) [address], [place], [address], 03/03/2025 12:10:29 03/02/20 25 03/02/2025 CBC W/DIF F HGB 12.9 g/dL (based on docume nted legal sex) 11.6-1 5.4 Not Available [facility] (Lab) [address], [place], [address], 03/03/2025 12:10:29 03/02/20 25 03/02/2025 CBC W/DIF F HCT 37.6 % (based on docume nted legal sex) 34.0-4 5.0 Not Available [facility] (Lab) [address], [place], [address], 03/03/2025 12:10:29 03/02/20 25 03/02/2025 CBC W/DIF F MCV 90.6 fL 80.0-9 9.0 Not Available [facility] (Lab) [address] [facility], [place], [address], 03/03/2025 12:10:29 03/02/20 25 03/02/2025 CBC W/DIF F MCH 31.1 pg 27.0-3 4.0 Not Available [facility] (Lab) [address] [facility], [place], [address], 03/03/2025 12:10:29 03/02/20 25 03/02/2025 CBC W/DIF F MCHC 34.3 g/dL 32.0-3 5.5 Not Available [facility] (Lab) [address] [facility], [place], [address], 03/03/2025 12:10:29 03/02/20 25 03/02/2025 CBC W/DIF F RDW 11.9 % 11.0-1 5.0 Not Available [facility] (Lab) [address] [facility], [place], [address], 03/03/2025 12:10:29 03/02/20 25 03/02/2025 CBC W/DIF F plt 344 10'3/ uL 150-40 0 Not Available [facility] (Lab) [address] [facility], [place], [address], 03/03/2025 12:10:29 03/02/20 25 03/02/2025 CBC W/DIF F MPV 9.8 fL 8.8-12 .1 Not Available [facility] (Lab) [address] [facility], [place], [address], 03/03/2025 12:10:29 03/02/20 25 03/02/2025 CBC W/DIF F NRBC's 0.0 % 0.0 Not Available [facility] (Lab) [address] [place], [address], 03/03/2025 12:10:29 03/02/20 25 03/02/2025 CBC W/DIF F absolute NRBCs 0.0 10'3/ uL no refere nce range establ ished Not Available [facility] (Lab) [address] [facility], [place], [address], 03/03/2025 12:10:29 03/02/20 25 03/02/2025 CBC W/DIF F neutrophils 74.6 % 34.0-7 3.0 high Not Available [facility] (Lab) [address] [place], [address], 03/03/2025 12:10:29 03/02/20 25 03/02/2025 CBC W/DIF F lymphocytes 19.0 % 15.0-5 0.0 Not Available [facility] (Lab) [address] [facility], [place], [address], 03/03/2025 12:10:29 03/02/20 25 03/02/2025 CBC W/DIF F monocytes 5.0 % 1.0-15 .0 Not Available [facility] (Lab) [address] [place], [address], 03/03/2025 12:10:29 03/02/20 25 03/02/2025 CBC W/DIF F eosinophils 0.7 % 0.0-8. 0 Not Available [facility] (Lab) [address] [place], [address], 03/03/2025 12:10:29 03/02/20 25 03/02/2025 CBC W/DIF F basophils 0.4 % 0.0-2. 0 Not Available [facility] (Lab) [address] [place], [address], 03/03/2025 12:10:29 03/02/2003/02/2025 CBC W/DIF F immature granulocytes 0.3 % no define d refere nce range Immat ure Granu locyt es (IG) repre sents autom ated enume ratio n of Metam yeloc ytes, Myelo cytes and Promy elocy elvis when IG is < 5%. Blast s are not inclu ded in IG and repor viktor separ ately if prese nt. Not Available [facility] (Lab) [address] [facility], [place], [address], 03/03/2025 12:10:29 03/02/20 25 03/02/2025 CBC W/DIF F absolute neutrophils 8.9 10'3/ uL 1.5-8. 0 high Not Available [facility] (Lab) [address] [facility], [place], [address], 03/03/2025 12:10:29 03/02/20 25 03/02/2025 CBC W/DIF F absolute lymphocytes 2.3 10'3/ uL 1.0-4. 0 Not Available [facility] (Lab) [address] [facility], [place], [address], 03/03/2025 12:10:29 03/02/20 25 03/02/2025 CBC W/DIF F absolute monocytes 0.6 10'3/ uL 0.2-1. 0 Not Available [facility] (Lab) [address] [facility], [place], [address], 03/03/2025 12:10:29 03/02/20 25 03/02/2025 CBC W/DIF F absolute eosinophils 0.1 10'3/ uL 0.0-0. 6 Not Available [facility] (Lab) [address] [facility], [place], [address], 03/03/2025 12:10:29 03/02/20 25 03/02/2025 CBC W/DIF F absolute basophils 0.1 10'3/ uL 0.0-0. 3 Not Available [facility] (Lab) [address] [place], [address], 03/03/2025 12:10:29 03/02/20 25 03/02/2025 CBC W/DIF [...] gonzalez book. nm.or g/gen derx Not Available [facility] (Lab) [address], [place], [address], 03/03/2025 12:10:29 03/02/2003/02/2025 HIV 1/2 ANTIG EN/AN TIBOD Y, REFLE X CONFI RMATI ON HIV antigen/anti body Nonrea ctive nonrea ctive HIV-1 antig en and HIV-1 /HIV- 2 antib odies were not detec viktor. No labor atory evide nce of HIV infec tion. Not Available [facility] (Lab) [address], [place], [address], 03/03/2025 12:10:29 03/02/2003/02/2025 HEPAT ITIS B SURFA CE ANTIG EN hepatitis B surface antigen Non-re active non-re active This assay was perfo rmed using [employer] ratio n reage nts and test kits. Value s obtai celina with other assay metho ds or kits canno t be used inter cano eably . Not Available [facility] (Lab) [address], [place], [address], 03/03/2025 12:10:30 03/02/20 25 03/02/2025 HEPAT ITIS C ANTIB SYD SCREE N, REFLE X TO CONFI RMATI ON hepatitis C antibody Non-re active non-re active Antib odies to HCV Not Detec viktor, does not exclu de the possi bilit y of expos ure to HCV. Not Available [facility] (Lab) [address], [place], [address], 03/03/2025 12:10:30 03/02/20 25 03/02/2025 TSH, REFLE X FREE T4 TSH 2.17 uIU/m L 0.30-5 .33 Not Available [facility] (Lab) [address] [facility], [place], [address], 03/03/2025 12:10:30 03/02/20 25 03/02/2025 RUBEL LA IGG ANTIB SYD, QUANT rubella antibodies, IgG Reacti ve reacti ve Not Available [facility] (Lab) [address] [facility], [place], [address], 03/03/2025 12:10:31 03/02/20 25 03/02/2025 RUBEL LA IGG ANTIB SYD, QUANT rubella antibodies, IgG quant 20.9 IU/mL >=10 Non-r eacti ve (Non- Immun e) <10 IU/mL React gustavo (Immu ne) > or = 10 IU/mL Not Available [facility] (Lab) [address] [facility], [place], [address], 03/03/2025 12:10:31 03/02/20 25 03/02/2025 TYPE/ RH/SC REEN ABO/Rh type A POS Not Available [facility] (Lab) [address] [facility], [place], [address], 03/03/2025 12:10:31 03/02/20 25 03/02/2025 TYPE/ RH/SC REEN antibody screen NEG Not Available [facility] (Lab) [address] [facility], [place], [address], 03/03/2025 12:10:31 03/02/20 25 03/02/2025 TYPE/ RH/SC REEN exp date 2024 23:59 Not Available [facility] (Lab) [address] [facility], [place], [address], 03/03/2025 12:10:31 03/02/20 25 03/02/2025 HEMOG LOBIN [...] >8.0% Actio n sugge sted Not Available [facility] (Lab) [address] [facility], [place], [address], 03/03/2025 12:10:31 03/02/20 25 03/02/2025 RPR SCREE N, REFLE X TITER /CONF IRMAT ION RPR qualitative Nonrea ctive nonrea ctive Not Available [facility] (Lab) [address] [facility], [place], [address], 03/03/2025 12:10:32 05/27/20 25 05/27/2025 CULTU RE: URINE result report SEE RESULT S BELOW Test: Cultu re: Urine Speci men Sourc e: Urine - Clean Catch Speci men Type: Urine Speci men Date: 2024 1053 Resul t Date: 2024 2233 Resul t Statu s: Final resul t Abnor mal: No Resul ting Lab: [facility] [address] [facility] [address] Tel: CULTU RE ----- ----- ----- --- No growt h in 1 day (dete ction level of 10,00 0 colon ies / ml.) Not Available [facility] (Lab) [address] [facility], [place], [address], 05/28/2025 23:37:55 06/24/20 25 06/24/2025 HEMAT OCRIT (HCT) HCT 32.6 % (based on docume nted legal sex) 34.0-4 5.0 low Not Available [facility] (Lab) [address] [facility], [place], [address], 06/25/2025 14:14:21 06/24/20 25 06/24/2025 HEMOG LOBIN (HGB) HGB 10.3 g/dL (based on docume nted legal sex) 11.6-1 5.4 low Not Available [facility] (Lab) [address] [facility], [place], [address], 06/25/2025 14:14:22 06/24/20 25 06/24/2025 GTT - GESTA DHAVAL L SCREE N, ACOG OB glucose, 1 hour screen 70 mg/dL 70-135 Not Available [facility] (Lab) [address] [facility], [place], [address], 06/25/2025 14:14:22 06/24/2006/24/2025 HIV 1/2 ANTIG EN/AN TIBOD Y, REFLE X CONFI RMATI ON HIV antigen/anti body Nonrea ctive nonrea ctive HIV-1 antig en and HIV-1 /HIV- 2 antib odies were not detec viktor. No labor atory evide nce of HIV infec tion. Not Available [facility] (Lab) [address] [facility], [place], [address], 06/25/2025 14:14:22 06/24/20 25 06/24/2025 RPR SCREE N, REFLE X TITER /CONF IRMAT ION RPR qualitative Nonrea ctive nonrea ctive Not Available [facility] (Lab) [address] [facility], [place], [address], 06/25/2025 14:14:23 03/02/20 25 03/02/2025 US, obste tric, nucha l trans lucen cy No observ ation record ed. [facility] [address], [place], [address], 03/02/2025 17:50:41 03/02/20 25 03/02/2025 US, obste tric, 1st trime ster No observ ation record ed. [facility] [address], [place], [address], 03/02/2025 17:50:51 03/02/20 25 03/02/2025 US, obste tric, nucha l trans lucen cy No observ ation record ed. [email or web address] [address], [place], [address], 03/02/2025 16:58:55 04/26/20 25 04/26/2025 US, obste tric, 2nd trime ster No observ ation record ed. [email or web address] [address], [place], [address], 04/27/2025 09:50:11 04/26/20 25 04/26/2025 US, obste tric, 2nd or 3rd trime ster No observ ation record ed. [email or web address] [place] [address], [place], [address], 04/26/2025 18:15:52 05/27/20 25 05/27/2025 US, obste tric, follo w-up No observ ation record ed. [facility] [address], [place], [address], 05/27/2025 14:03:34 05/27/20 25 05/27/2025 US, obste tric, follo w-up No observ ation record ed. [email or web address] [address], [place], [address], 05/27/2025 14:07:05 07/22/20 25 07/22/2025 US, obste tric, follo w-up No observ ation record ed. [facility] [address], [place], [address], 07/22/2025 13:46:42 07/22/20 25 07/22/2025 US, obste tric, follo w-up No observ ation record ed. [email or web address] [address], [place], [address], 08/08/2025 11:16:18 Result Notes None recorded. Problems Name Problem SNOMED Code Status Onset Date Resolution Date Notes Provider Name and Address Organization Details Recorded Time Family history of Factor V Leiden mutation 0761306888 [id number] Completed testing negative 08/[address] [facility], [facility] 4 13:41:32 Placenta circumva llata 2613075 Completed serial growth Megan Kwan [facility], [facility] 4 13:41:32 Pregnanc y 86902314 Completed 202202/09/[address] [facility], [facility] 5 16:16:10 Pregnanc y 94619824 Active [address] [facility], [facility] 5 16:16:09 Placenta circumva llata 3690804 Active 2024 32 week growth US SHANI MALDONADO MD [address], [place], [address], [facility] 5 18:25:20 Placenta circumva llata 3237571 Active 2024 32 week growth US SHANI MALDONADO MD [address], [place], [address], [facility] 5 18:25:20 Problem Notes None recorded. [...] Not Available Vitals Date Recorded Body weight Systolic And Diastolic Provider Name and Address Organization Details Last Updated DateTime 07/05/2025 39006.89817 g 118/74 mm[Hg] Valerie Ortiz [facility] 07/05/2025 09:34:32 Social History Question Answer Notes LastModified by Organizat ion Details LastModified Time Tobacco Smoking Status Never Smoker Shirin chapman [facility], [...] Or The Highest Degree You Have Received? 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 Occasional Information not available 11/28/2023 Mental Status Question Answer Note LastModified by Organization D etails LastModified Time Do you feel stressed (tense, restless, nervous, or anxious, or unable to sleep at night)? [id number] Information not available 09/03/2023 Family History Relationship Description Onset Age of this Age Resolved Age Notes LastModified by Organization Details LastModified Time Maternal Aunt Anemia [email or web address] Not avail able 07/03/2023 15:51:07 Maternal Uncle Heart disease [email or web address] Not available 2022 15:51:07 Mother Disorder of thyroid gland [email or web address] Not available 2023 16:37:13 Mother Anemia [email or web address] Not available 01/30/2024 16:37:13 Maternal Grandmother Heart disease [email or web address] Not available 2023 16:37:13 Medical History Condition [...] ICD10 Code Diagnosis IMO Codes Diagnosis Note [id number] SHANI MALDONADO MD [place] [address] [address] 06/24/2025 10:01:03 06/24/2025 10:41:54 Placenta circumvallata 9982430 O43.336 8213719 Gestation period, 28 weeks 13284547 Z3A.28 [id number] [id number] SHANI MALDONADO MD [place] [address] [address] 07/05/2025 09:25:40 07/05/2025 10:13:57 Depressive disorder 95229316 F32.A 31438224 Placenta circumvallata 6594434 O43.067 8787042 Gestation period, 30 weeks 17792163 Z3A.30 [id number] Health Concerns Section Related Observation LastModified by Organization Detai ls LastModified Time None Recorded Concern Status LastModified by Organization Details LastModified Time None Recorded Payers Encounter Date Sequence Insurance Name Policy Number Policy Monteiro Covered Member ID Monteiro Member ID Guarantor Name 07/05/2025 1 [employer] - [employer] [id number] (PPO) [id number] Jeff Vazquez [id number] Lucita Vazquez Notes Date Note Type Note Provider Name and Address Organization Details Recorded Time 07/05/2025 text/html Generic HPI TemplateReported by Patient SHANI MALDONADO MD [address], [place], [address], [facility] 07/05/2025 10:09:34 OBGyn Episode Ob Episode Information Episode Created Date Number of Fetuses Patient Bloodtype Patient rh Status Prepregnancy Weight lbs Domestic Partner Domestic Partner Phone Father Name Circulation Assistant Status 03/02/20 25 1 A Positive OPEN Fetus Data First Name Last Name Admitted to NICU Weight (g) Sex Living Outcome Pediatric Complications Fetus ID Race Codes Race Delivery Type [id number] Problems Problem Notes Problem Name Start Date End Date Resolution Snomed Code Not e Placenta circumvallata 04/26/2025 813655 0 32 week growth US Rufino Calculation [...] Date Ultra Sound Latest Days Gestation 0 03/02/2025 09/11/19 26 0 Pre-ashly Flowsheet Flowsheet [...] Weight in lbs Pre/Post Dialysis Refused Weight 129.83243978895 BP Diastolic BP Location Tested BP Systolic BP Type 79 L arm 122 sitting Fetus Heart Rate Present Fetus Movement A No Comments Patient presents to [facility] care. Hx of anxiety/depression, on [...] Weight in lbs Pre/Post Dialysis Refused Weight 130.302021439339 BP Diastolic BP Location Tested BP Systolic [...] Weight in lbs Pre/Post Dialysis Refused Weight 135.254773124220 BP Diastolic BP Location Tested BP Systolic [...] Weight in lbs Pre/Post Dialysis Refused Weight 137.626104067302 BP Diastolic BP Location Tested BP Systolic BP Type 72 L arm 108 sitting Fetus Heart Rate Present A 135 Fetus Movement A Yes Comments Doing well, getting over sin us infection. Good movement. No cramping or bleeding. EFw 68%, normal fluid. Repeat at 32 weeks. Going to [place] on Friday, discussed travel precautions. RTC 4 weeks. Flowsheet Date 06/24/2025 El Score Blood Edema Fundus Height Fundus Units Glucose Ketones Leukocytes Nitrite Labor Signs Protein Cervic Dilation Cervic Effacement Cervic Station Type Weight in lbs Pre/Post Dialysis Refused Weight 142.971889751160 BP Diastolic BP Location Tested BP Systolic [...] Type Weight in lbs Pre/Post Dialysis Refused 144.660905011668 BP Diastolic BP Location Tested BP Systolic [...] Type Weight in lbs Pre/Post Dialysis Refused 147.588120828598 BP Diastolic BP Location Tested BP Systolic [...] Type Weight in lbs Pre/Post Dialysis Refused 152.281974985068 BP Diastolic BP Location Tested BP Systolic [...] Weight in lbs Pre/Post Dialysis Refused Weight 151.547010504802 BP Diastolic BP Location Tested BP Systolic [...] Weight in lbs Pre/Post Dialysis Refused Weight 157.088997652660 BP Diastolic BP Location Tested BP Systolic [...]
--- OUTSIDE RECORDS SUMMARY | 2025-08-23 23:12 | XMS_ITS | Continuity of Care Document ---
Author Organization [facility] [place] Address [address] [place] [place] [address] Care Team Providers Care Events And Promotions Assistant Name Role Phone LESLY ELMORE Primary Care Provider Assessment No assessment recorded. Plan of Treatment Reminders Order Date Submit Date Provider Last Modified By Organization Details Last Modified Time Details Appointments OB ROUTINE 2024 03:45P Kath MALDONADO MD Not available Not available Not available INDUCTION 2024 05:00A Kath MALDONADO MD Not available Not available Not available Lab bile acids, total, serum 2024 025 [facility] (Lab), [address], [place], [address], 08/23/2025 18:19:41 CMP, serum or plasma 2024 025 [facility] (Lab), [address], [place], [address], 08/23/2025 18:19:41 iron + TIBC + ferritin, serum 2024 025 [facility] (Lab), [address], [place], [address], 08/23/2025 18:19:41 CBC w/ auto diff 2024 025 [facility] (Lab), [address], [place], [address], 08/23/2025 18:19:40 Referral None recorded. Procedures None [...] Not Available [facility] [address], [place], [address], 03/09/2025 17:04:01 03/09/20 25 03/09/2025 [UNIT Y] ANEUP LOIDY NIPT 22Q11.2 microdeletio n LOW RISK <1 in 10,000 normal Not Available [facility] [address], [place], [address], 03/09/2025 17:04:01 03/09/20 25 03/09/2025 [UNIT Y] ANEUP LOIDY NIPT sex chromosome aneuploidy NOT DETECT ED normal Not Available [facility] [address], [place], [address], 03/09/2025 17:04:01 03/09/20 25 03/09/2025 [UNIT Y] ANEUP LOIDY NIPT monosomy X LOW RISK <1 in 10,000 normal Not Available [facility] [address], [place], [address], 03/09/2025 17:04:01 03/09/20 25 03/09/2025 [UNIT Y] ANEUP LOIDY NIPT trisomy 13 LOW RISK <1 in 10,000 normal Not Available [facility] [address], [place], [address], 03/09/2025 17:04:01 03/09/20 25 03/09/2025 [UNIT Y] ANEUP LOIDY NIPT trisomy 18 LOW RISK <1 in 10,000 normal Not Available [facility] [address], [place], [address], 03/09/2025 17:04:01 03/09/20 25 03/09/2025 [UNIT Y] ANEUP LOIDY NIPT trisomy 21 LOW RISK <1 in 10,000 normal Not Available [facility] [address], [place], [address], 03/09/2025 17:04:01 03/09/20 25 03/09/2025 [UNIT Y] ANEUP LOIDY NIPT sex MALE normal Not Available [facility] [address], [place], [address], 03/09/2025 17:04:01 03/09/20 25 03/09/2025 [UNIT Y] ANEUP LOIDY NIPT gestation SINGLE TON normal Not Available [facility] [address], [place], [address], 03/09/2025 17:04:01 03/09/20 25 03/09/2025 [UNIT Y] ANEUP LOIDY NIPT for detailed report, see pdf See PDF normal Not Available [facility] [address], [place], [address], 03/09/2025 17:04:01 03/02/20 25 03/02/2025 CBC W/DIF F WBC 12.0 10'3/ uL 3.5-10 .5 high Not Available [facility] (Lab) [address], [place], [address], 03/03/2025 12:10:29 03/02/20 25 03/02/2025 CBC W/DIF F RBC 4.15 10'6/ uL (based on docume nted legal sex) 3.80-5 .20 Not Available [facility] (Lab) [address], [place], [address], 03/03/2025 12:10:29 03/02/20 25 03/02/2025 CBC W/DIF F HGB 12.9 g/dL (based on docume nted legal sex) 11.6-1 5.4 Not Available [facility] (Lab) [address], [place], [address], 03/03/2025 12:10:29 03/02/20 25 03/02/2025 CBC W/DIF F HCT 37.6 % (based on docume nted legal sex) 34.0-4 5.0 Not Available [facility] (Lab) [address], [place], [address], 03/03/2025 12:10:29 03/02/20 25 03/02/2025 CBC W/DIF F MCV 90.6 fL 80.0-9 9.0 Not Available [facility] (Lab) [address], [place], [address], 03/03/2025 12:10:29 03/02/20 25 03/02/2025 CBC W/DIF F MCH 31.1 pg 27.0-3 4.0 Not Available [facility] (Lab) [address], [place], [address], 03/03/2025 12:10:29 03/02/20 25 03/02/2025 CBC W/DIF F MCHC 34.3 g/dL 32.0-3 5.5 Not Available [facility] (Lab) [address], [place], [address], 03/03/2025 12:10:29 03/02/20 25 03/02/2025 CBC W/DIF F RDW 11.9 % 11.0-1 5.0 Not Available [facility] (Lab) [address], [place], [address], 03/03/2025 12:10:29 03/02/20 25 03/02/2025 CBC W/DIF F plt 344 10'3/ uL 150-40 0 Not Available [facility] (Lab) [address] [place], [address], 03/03/2025 12:10:29 03/02/20 25 03/02/2025 CBC W/DIF F MPV 9.8 fL 8.8-12 .1 Not Available [facility] (Lab) [address] [facility], [place], [address], 03/03/2025 12:10:29 03/02/20 25 03/02/2025 CBC W/DIF F NRBC's 0.0 % 0.0 Not Available [facility] (Lab) [address] [facility], [place], [address], 03/03/2025 12:10:29 03/02/20 25 03/02/2025 CBC W/DIF F absolute NRBCs 0.0 10'3/ uL no refere nce range establ ished Not Available [facility] (Lab) [address] [facility], [place], [address], 03/03/2025 12:10:29 03/02/20 25 03/02/2025 CBC W/DIF F neutrophils 74.6 % 34.0-7 3.0 high Not Available [facility] (Lab) [address] [facility], [place], [address], 03/03/2025 12:10:29 03/02/20 25 03/02/2025 CBC W/DIF F lymphocytes 19.0 % 15.0-5 0.0 Not Available [facility] (Lab) [address] [place], [address], 03/03/2025 12:10:29 03/02/20 25 03/02/2025 CBC W/DIF F monocytes 5.0 % 1.0-15 .0 Not Available [facility] (Lab) [address] [place], [address], 03/03/2025 12:10:29 03/02/20 25 03/02/2025 CBC W/DIF F eosinophils 0.7 % 0.0-8. 0 Not Available [facility] (Lab) [address] [facility], [place], [address], 03/03/2025 12:10:29 03/02/20 25 03/02/2025 CBC W/DIF F basophils 0.4 % 0.0-2. 0 Not Available [facility] (Lab) [address] [facility], [place], [address], 03/03/2025 12:10:29 03/02/20 25 03/02/2025 CBC W/DIF [...] separ ately if prese nt. Not Available [facility] (Lab) [address] [facility], [place], [address], 03/03/2025 12:10:29 03/02/20 25 03/02/2025 CBC W/DIF F absolute neutrophils 8.9 10'3/ uL 1.5-8. 0 high Not Available [facility] (Lab) [address] [facility], [place], [address], 03/03/2025 12:10:29 03/02/20 25 03/02/2025 CBC W/DIF F absolute lymphocytes 2.3 10'3/ uL 1.0-4. 0 Not Available [facility] (Lab) [address] [facility], [place], [address], 03/03/2025 12:10:29 03/02/20 25 03/02/2025 CBC W/DIF F absolute monocytes 0.6 10'3/ uL 0.2-1. 0 Not Available [facility] (Lab) [address] [facility], [place], [address], 03/03/2025 12:10:29 03/02/20 25 03/02/2025 CBC W/DIF F absolute eosinophils 0.1 10'3/ uL 0.0-0. 6 Not Available [facility] (Lab) [address] [facility], [place], [address], 03/03/2025 12:10:29 03/02/2003/02/2025 CBC W/DIF F absolute basophils 0.1 10'3/ uL 0.0-0. 3 Not Available [facility] (Lab) [address] [facility], [place], [address], 03/03/2025 12:10:29 03/02/20 25 03/02/2025 CBC W/DIF F absolute immature granulocytes 0.0 10'3/ uL 0.00-0 .10 Refer ence range s for nonbi nary/ inter sex or unspe cifie d gende r patie nts have not been estab lishe d. Pleas e [facility] for range s estab lishe d for cisge nder patie nts and evalu ate in the clini adam raymond xt of the indiv idual patie nt: [email or web address] :[email or web address] sandra [email or web address].or g/gen derx Not Available [facility] (Lab) [address] [facility], [place], [address], 03/03/2025 12:10:29 03/02/20 25 03/02/2025 HIV 1/2 ANTIG EN/AN TIBOD Y, REFLE X CONFI RMATI ON HIV antigen/anti body Nonrea ctive nonrea ctive HIV-1 antig en and HIV-1 /HIV- 2 antib odies were not detec viktor. No labor atory evide nce of HIV infec tion. Not Available [facility] (Lab) [address] [facility], [place], [address], 03/03/2025 12:10:29 03/02/2003/02/2025 HEPAT ITIS B SURFA CE ANTIG EN hepatitis B surface antigen Non-re active non-re active This assay was perfo rmed using [employer] ratio n reage nts and test kits. Value s obtai celina with other assay metho ds or kits canno t be used inter cano eably . Not Available [facility] (Lab) [address] [facility], [place], [address], 03/03/2025 12:10:30 03/02/20 25 03/02/2025 HEPAT ITIS C ANTIB SYD SCREE N, REFLE X TO CONFI RMATI ON hepatitis C antibody Non-re active non-re active Antib odies to HCV Not Detec viktor, does not exclu de the possi bilit y of expos ure to HCV. Not Available [facility] (Lab) [address] [facility], [place], [address], 03/03/2025 12:10:30 03/02/20 25 03/02/2025 TSH, REFLE X FREE T4 TSH 2.17 uIU/m L 0.30-5 .33 Not Available [facility] (Lab) [address] [facility], [place], [address], 03/03/2025 12:10:30 03/02/20 25 03/02/2025 RUBEL LA IGG ANTIB SYD, QUANT rubella antibodies, IgG Reacti ve reacti ve Not Available [facility] (Lab) [address] [facility], [place], [address], 03/03/2025 12:10:31 03/02/20 25 03/02/2025 RUBEL LA IGG ANTIB SYD, QUANT rubella antibodies, IgG quant 20.9 IU/mL >=10 Non-r eacti ve (Non- Immun e) <10 IU/mL React gustavo (Immu ne) > or = 10 IU/mL Not Available [facility] (Lab) [address] [facility], [place], [address], 03/03/2025 12:10:31 03/02/20 25 03/02/2025 TYPE/ RH/SC REEN ABO/Rh type A POS Not Available [facility] (Lab) [address] [facility], [place], [address], 03/03/2025 12:10:31 03/02/20 25 03/02/2025 TYPE/ RH/SC REEN antibody screen NEG Not Available [facility] (Lab) [address] [facility], [place], [address], 03/03/2025 12:10:31 03/02/20 25 03/02/2025 TYPE/ RH/SC REEN exp date 2024 23:59 Not Available [facility] (Lab) [address] [facility], [place], [address], 03/03/2025 12:10:31 03/02/20 25 03/02/2025 HEMOG LOBIN A1C hemoglobin A1C 5.0 % 4.0-5. 6 The Ameri can Diabe elvis [employer] iatio n recom mends that a prima ry goal of thera py shoul d be a HBA1C of < 7% and that physi cians shoul d reeva luate the treat ment regim en in patie nts with HBA1C value s consi stent ly > 8%. <5.7% Camryn l 5.7 - 6.4% Incre ased risk for diabe elvis >=6.5 % Diagn ostic of diabe elvis <7.0% Goal of thera py >8.0% Actio n sugge sted Not Available [facility] (Lab) [address] [facility], [place], [address], 03/03/2025 12:10:31 03/02/20 25 03/02/2025 RPR SCREE N, REFLE X TITER /CONF IRMAT ION RPR qualitative Nonrea ctive nonrea ctive Not Available [facility] (Lab) [address] [facility], [place], [address], 03/03/2025 12:10:32 05/27/20 25 05/27/2025 CULTU RE: [...] [facility] [address] Tel: CULTU RE ----- ----- ----- --- No growt h in 1 day (dete ction level of 10,00 0 colon ies / ml.) Not Available [facility] (Lab) [address] [facility], [place], [address], 05/28/2025 23:37:55 06/24/2006/24/2025 HEMAT OCRIT (HCT) HCT 32.6 % (based on docume nted legal sex) 34.0-4 5.0 low Not Available [facility] (Lab) [address] [place], [address], 06/25/2025 14:14:21 06/24/20 25 06/24/2025 HEMOG LOBIN (HGB) HGB 10.3 g/dL (based on docume nted legal sex) 11.6-1 5.4 low Not Available [facility] (Lab) [address] [place], [address], 06/25/2025 14:14:22 06/24/20 25 06/24/2025 GTT - GESTA DHAVAL L SCREE N, ACOG OB glucose, 1 hour screen 70 mg/dL 70-135 Not Available [facility] (Lab) [address] [place], [address], 06/25/2025 14:14:22 06/24/20 25 06/24/2025 HIV 1/2 ANTIG EN/AN TIBOD Y, REFLE X CONFI RMATI ON HIV antigen/anti body Nonrea ctive nonrea ctive HIV-1 antig en and HIV-1 /HIV- 2 antib odies were not detec viktor. No labor atory evide nce of HIV infec tion. Not Available [facility] (Lab) [address] [place], [address], 06/25/2025 14:14:22 06/24/20 25 06/24/2025 RPR SCREE N, REFLE X TITER /CONF IRMAT ION RPR qualitative Nonrea ctive nonrea ctive Not Available [facility] (Lab) [address] [facility], [place], [address], 06/25/2025 14:14:23 08/17/20 25 08/17/2025 CULTU RE: GROUP B STREP SCREE N, REFLE X SUSCE PTIBI LITY result report SEE RESULT S BELOW Test: Cultu re: Group B Strep , Refle x Susce ptibi lity ([facility]/ [facility] ) Speci men Sourc e: Vagin a/Rec rbuce Speci men Type: Vagin al/Re ctal Speci men Date: 08/17 1012 Resul t Date: 08/20 1025 Resul t Statu s: Final resul t Abnor mal: No Resul ting Lab: [facility] [address] [facility] [address] Tel: CULTU RE ----- ----- ----- --- No Group B strep isola viktor at 2 days (tiki ctive broth enhan cemen t) Not Available [facility] (Lab) [address] [facility], [place], [address], 08/20/2025 11:32:33 03/02/20 25 03/02/2025 US, obste tric, nucha l trans lucen cy No observ ation record ed. [facility] [address], [place], [address], 03/02/2025 17:50:41 03/02/20 25 03/02/2025 US, obste tric, 1st trime ster No observ ation record ed. [facility] [address], [place], [address], 03/02/2025 17:50:51 03/02/20 25 03/02/2025 US, obste tric, nucha l trans lucen cy No observ ation record ed. [email or web address] [address], [place], [address], 03/02/2025 16:58:55 04/26/20 25 04/26/2025 US, obste tric, 2nd trime ster No observ ation record ed. [email or web address] [address], [place], [address], 04/27/2025 09:50:11 04/26/20 25 04/26/2025 US, obste tric, 2nd or 3rd trime ster No observ ation record ed. [address], [place], [address], 04/26/2025 18:15:52 05/27/20 25 05/27/2025 US, obste tric, follo w-up No observ ation record ed. [facility] [address], [place], [address], 05/27/2025 14:03:34 05/27/20 25 05/27/2025 US, obste tric, follo w-up No observ ation record ed. [email or web address] [address], [place], [address], 05/27/2025 14:07:05 07/22/20 25 07/22/2025 US, obste tric, follo w-up No observ ation record ed. [facility] [address], [place], [address], 07/22/2025 13:46:42 07/22/20 25 07/22/2025 US, obste tric, follo w-up No observ ation record ed. [email or web address] [address], [place], [address], 08/08/2025 11:16:18 Result Notes None recorded. Problems Name Problem SNOMED Code Status Onset Date Resolution Date Notes Provider Name and Address Organization Details Recorded Time Family history of Factor V Leiden mutation 5649628733 [id number] Completed testing negative 08/06 Megan Kwan [facility], [facility] 4 13:41:32 Placenta circumva llata 9437571 Completed serial growth Megan chapman, [facility] 4 13:41:32 Pregnanc y 93504145 Completed 202202/09/2024 SHAR Montoya [facility] 5 16:16:10 Pregnanc y 26859570 Active 2024 SHAR Montoya [facility] 5 16:16:09 Placenta circumva llata 4007389 Active 2024 32 week growth US SHANI MALDONADO MD [address], [place], [address], [facility] 5 18:25:20 Placenta circumva llata 2504757 Active 2024 32 week growth US SHANI MALDONADO MD [address], [place], [address], [facility] 5 18:25:20 Problem Notes None recorded. Procedures Surgical History Date Name Laterality Status Provider Name and Address Organization Details Recorded Time 04/24/2023 Date of Last Pap Smear completed Karime Galvin [facility] 02/02/2025 17:02:43 Imaging Results None recorded. [...] Updated DateTime 08/22/2025 162.56 cm 26.9 kg/m2 49274 g 124/84 mm[Hg] MURTAZA WALTERS [facility] 08/22/2025 12:38:17 Social History Question Answer Notes LastModified by Organizat ion Details LastModified Time Tobacco Smoking Status Never Smoker Shirin chapman [facility] 10/01/2023 17:03:25 Are You Blind Or [...] Or The Highest Degree You Have Received? 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 Occasional Information not available 11/28/2023 Mental Status Question Answer Note LastModified by Organization D etails LastModified Time Do you feel stressed (tense, restless, nervous, or anxious, or unable to sleep at night)? [id number] Information not available 09/03/2023 Family History Relationship Description Onset Age of this Age Resolved Age Notes LastModified by Organization Details LastModified Time Maternal Aunt Anemia [email or web address] Not avail able 07/03/2023 15:51:07 Maternal Uncle Heart disease [email or web address] Not available 2022 15:51:07 Mother Disorder of thyroid gland [email or web address] Not available 2023 16:37:13 Mother Anemia [email or web address] Not available 01/30/2024 16:37:13 Maternal Grandmother Heart disease [email or web address] Not available 2023 16:37:13 Medical History Condition [...] ICD10 Code Diagnosis IMO Codes Diagnosis Note [id number] SHANI MALDONADO MD [place] [address] [address] 08/10/2025 10:09:41 08/10/2025 10:43:57 care status 779897874 Z34.83 [id number] SHANI MALDONADO MD [place] [address] [address] 08/17/2025 10:01:02 08/17/2025 10:51:06 Placenta circumvallata 8407571 O43.013 0097550 Gestation period, 36 weeks 01016912 Z3A.36 5429877 [id number] SHANI MALDONADO MD [place] [address] [address] 08/22/2025 12:34:04 08/22/2025 12:57:18 Pruritic disorder of skin 4547707093 L29.9 01714 - itching on feet at night Anemia 166692737 D64.9 0637289 Placenta circumvallata 2186175 O43.128 5064156 Gestation period, 37 weeks 90171004 Z3A.37 [id number] Health Concerns Section Related Observation LastModified by Organization Detai ls LastModified Time None Recorded Concern Status LastModified by Organization Details LastModified Time None Recorded Payers Encounter Date Sequence Insurance Name Policy Number Policy Monteiro Covered Member ID Monteiro Member ID Guarantor Name 08/22/2025 1 [employer] - [employer] [employer] 421 (PPO) [id number] Jeffluciana Vazquez [id number] Lucita Vazquez Notes Date Note Type Note Provider Name and Address Organization Details Recorded Time 08/22/2025 text/html Generic HPI TemplateReported by Patient SHANI MALDONADO MD [address], [place], [address], [facility] 08/22/2025 12:51:17 OBGyn Episode Ob Episode Information Episode Created Date Number of Fetuses Patient Bloodtype Patient rh Status Prepregnancy Weight lbs Domestic Partner Domestic Partner Phone Father Name Cigarette Stamper Status 03/02/20 25 1 A Positive OPEN Fetus Data First Name Last Name Admitted to NICU Weight (g) Sex Living Outcome Pediatric Complications Fetus ID Race Codes Race Delivery Type [id number] Problems Problem Notes Problem Name Start Date End Date Resolution Snomed Code Not e Placenta circumvallata 04/26/2025 778949 0 32 week growth US Rufino Calculation [...] Date Ultra Sound Latest Days Gestation 0 [id number] 03/02/2025 09/11/19 26 0 Pre-ashly Flowsheet Flowsheet [...] Weight in lbs Pre/Post Dialysis Refused Weight 129.34032465196 BP Diastolic BP Location Tested BP Systolic BP Type 79 L arm 122 sitting Fetus Heart Rate Present Fetus Movement A No Comments Patient presents to [facility]. Hx of anxiety/depression, on Wellbutrin. otherwise uncomplicated. No nausea or cramping. NT/NB wnl today, desires NIPT. Will draw today with new OB labs. RTC 4 weeks for routine care. Flowsheet Date 03/30/2025 El Score Blood Edema Fundus Height Fundus Units Glucose Ketones Leukocytes Nitrite Labor Signs Protein Cervic Dilation Cervic Effacement Cervic Station Type Weight in lbs Pre/Post Dialysis Refused Weight 130.240630940720 BP Diastolic BP Location Tested BP Systolic [...] Weight in lbs Pre/Post Dialysis Refused Weight 135.612648706600 BP Diastolic BP Location Tested BP Systolic [...] Weight in lbs Pre/Post Dialysis Refused Weight 137.095114660560 BP Diastolic BP Location Tested BP Systolic BP Type 72 L arm 108 sitting Fetus Heart Rate Present A 135 Fetus Movement A Yes Comments Doing well, getting over sin us infection. Good movement. No cramping or bleeding. EFw 68%, normal fluid. Repeat at 32 weeks. Going to [place] on Friday, discussed travel precautions. RTC 4 weeks. Flowsheet Date 06/24/2025 El Score Blood Edema Fundus Height Fundus Units Glucose Ketones Leukocytes Nitrite Labor Signs Protein Cervic Dilation Cervic Effacement Cervic Station Type Weight in lbs Pre/Post Dialysis Refused Weight 142.978552941664 BP Diastolic BP Location Tested BP Systolic [...] Type Weight in lbs Pre/Post Dialysis Refused 144.500103873785 BP Diastolic BP Location Tested BP Systolic [...] Type Weight in lbs Pre/Post Dialysis Refused 147.791031448814 BP Diastolic BP Location Tested BP Systolic [...] Type Weight in lbs Pre/Post Dialysis Refused 152.551391491657 BP Diastolic BP Location Tested BP Systolic [...] Weight in lbs Pre/Post Dialysis Refused Weight 151.311791835939 BP Diastolic BP Location Tested BP Systolic [...] Weight in lbs Pre/Post Dialysis Refused Weight 157.924041122821 BP Diastolic BP Location Tested BP Systolic [...]
[2025-08-23] MEDS: LACTATED RINGERS 1,000 ML 125 ML IV CONT (23:20)
[2025-08-23 23:56] LABS: Hematocrit 36.0 % (37.0-47.0); Hemoglobin 12.2 g/dL (12.0-15.0); Immature Granulocyte Percent A 4.1 % (0-0.5); Lymphocytes Absolute Auto 2.26 K/mm3 (0.9-3.2); Mean Corpuscular HGB Conc 33.9 g/dl (32-36); Mean Corpuscular Hemoglobin 30.7 pg (26-34); Mean Corpuscular Volume 90.5 fl (80-100); Nucleated Red Blood Cells Absolute Auto 0.000 K/mm3 (0.0-0.012); Nucleated Red Blood Cells Perc 0.0 % (0.0-0.2); Platelet Count Result 260 k/mm3 (150-375); Red Blood Count 3.98 M/mm3 (4.2-5.4); White Blood Count 14.7 K/mm3 (4.5-10.0)
[2025-08-24] VITALS (96 sets, daily range): BP systolic 72–140; BP diastolic 43–86; PULSE 27–133; RESP 16; TEMP 36.4–36.9; O2SAT 81–100
--- NOTE | 2025-08-24 00:08 | WPDANESEPP ---
Anes - Eval Pre Procedure Procedure: Labor epidural Date/Time: 08/24/25 00:08 Surgeon: Deirdre Preop Diagnosis: Abdominal pain with contractions Pre Op Diagnosis: Contractions Patient Data Age: 30 Gender: F Height: Weight: Last Vital Signs Pulse 69 08/24/25 00:00 BP 132/86 08/24/25 00:00 Pulse Ox 100 08/24/25 00:07 O2 Del Method Room Air 08/23/25 23:11 Allergies Allergy/AdvReac Type Severity Reaction Status Date / Time No Known Allergies Allergy Verified 08/23/25 23:11 Home Medications ?Medication ?Instructions ?Recorded ?Confirmed ?Type prenat.vits,adam,cje-spre-wnrig 1 tablet PO DAILY 02/03/24 08/23/25 History bupropion HCl 200 mg tablet,12 hr mg PO 08/23/25 History sustained-release Laboratory Tests 08/23/25 23:28 WBC 14.7 H K/mm3 (4.5-10.0) RBC 3.98 L M/mm3 (4.2-5.4) Hgb 12.2 D g/dL (12.0-15.0) Hct 36.0 L % (37.0-47.0) MCV 90.5 fl (80-100) MCH 30.7 pg (26-34) MCHC 33.9 g/dl (32-36) RDW 15.0 H % (11.5-14.5) Plt Count 260 k/mm3 (150-375) MPV 10.1 fl (7.4-10.4) Immature Gran % (Auto) 4.1 H % (0-0.5) Neut % (Auto) 73.0 % (45.5-73.1) Lymph % (Auto) 15.4 L % (18.3-44.2) Hawkins % (Auto) 6.5 % (2.6-8.5) Eos % (Auto) 0.6 % (0-4.4) Baso % (Auto) 0.4 % (0.2-1.2) Lymph # (Auto) 2.26 K/mm3 (0.9-3.2) Hawkins # (Auto) 1.0 H K/mm3 (0.1-0.6) Eos # (Auto) 0.1 K/mm3 (0-0.3) Baso # (Auto) 0.1 K/mm3 (0.0-0.1) Abs Immat Gran (auto) 0.60 H K/mm3 (0.00-0.031) Absolute Neuts (auto) 10.7 H K/mm3 (1.3-6.7) Absolute Nucleated RBC 0.000 K/mm3 (0.0-0.012) Nucleated RBC % 0.0 % (0.0-0.2) Blood Type A Positive Antibody Screen Pending : gestational age HCG: positive Patient hx anesthesia problems: none Family hx anesthesia problems: none Results Review: All pre-operative results and documents have been reviewed as part of the pre-operative evaluation. [facility] Past Medical History Medical History Overweight (BMI 25.0-29.9) and not yet delivered Social History Social History Smoking status: Never smoker Substance use: never Lack of Transportation: No Lack of Food: Never True Current Housing: I Have Housing Concerned About Future Housing: No Difficulty Paying Gas/Electric Bills: No Difficulty Paying for Meds: No Currently Unemployed: No Education: Master's Degree or Higher Difficulty w/ Childcare or Family Care: No Spiritual care concerns: No Exam Day of Procedure 08/24/25 00:08 Patient weight: overweight
[2025-08-24 00:13] LABS: Syphilis IgG/IgM Antibody Non-Reactive (Nonreactive)
[2025-08-24] MEDS: LACTATED RINGERS 1,000 ML 125 ML IV CONT ×2 (00:36→01:45)
--- NOTE | 2025-08-24 04:16 | WPDOBADMIT ---
Obstetrics - Admit Note Admission Note: record reviewed. No pertinent additions to the history and/or any subsequent changes in the physical findings that are not consistent with the expected course of the were found. Patient admitted in labor. Uncomplicated . Anticipate . Additions to the history and/or subsequent changes in the physical findings follow. None.
--- NOTE | 2025-08-24 04:17 | PM.OBPRVD ---
OB - Vaginal Delivery Note Procedure Delivery date: 08/24/25 Delivery monitor: External FHT and External Uterine Route of delivery: Episiotomy description: None Laceration Description: Perineal - 2nd Degree Delivery repair: vicryl Specimen: No Quantitative Blood Loss (ml): 100 Anesthesia type: Epidural Disposition: Floor Complications: No immediate complications Narrative: See H&P and notes for details on patient's admission and labor. She progressed to complete cervical dilation and at the appropriate time began pushing. With adequate expulsive efforts by the mother, the baby's head was delivered without difficulty. Nuchal cord was not present. The baby's shoulder delivered under the pubic symphysis without difficulty. The posterior shoulder and the rest of the baby delivered without difficulty. The umbilical cord was doubly clamped and cut after 60 seconds of delayed cord clamping. Care of the infant was then assumed by the nursing staff. [place] Baby Date of : 08/24/25 Time of : 03:54 Gestational Age by Date: 38 Infant gender: Male presentation: vertex Placenta delivery description: Expressed and Delivery of Placenta Only Cord Vessel Description: 3 Vessels and Delayed Cord Clamping
[2025-08-24] MEDS: OXYTOCIN 30 UNITS/NS 500 ML 30 UNITS/500 ML BAG 125 UNITS IV CONT (04:37)
[2025-08-24] MEDS: WITCH HAZEL 40 PADS 1 PAD TOPICAL (06:22)
[2025-08-24] MEDS: BENZOCAINE 20% AER SPR (*SP) 56 GM CAN 1 SPRAY TOPICAL (06:22)
[2025-08-24] MEDS: IBUPROFEN 600 MG TABLET PO ×3 (06:22→20:55)
[2025-08-24] MEDS: LIDOCAINE 5% PATCH 1 PATCH TRANSDERM (08:45)
[2025-08-24] MEDS: ACETAMINOPHEN 325 MG TABLET 650 MG PO ×2 (08:45→16:55)
[2025-08-25] MEDS: ACETAMINOPHEN 325 MG TABLET 650 MG PO ×3 (01:30→20:23)
[2025-08-25 04:30] VITALS: BP 100/61; PULSE 75; RESP 16; TEMP 37.1; O2SAT 97
[2025-08-25 05:16] LABS: Hematocrit 30.7 % (37.0-47.0); Hemoglobin 10.1 g/dL (12.0-15.0)
[2025-08-25] MEDS: IBUPROFEN 600 MG TABLET PO ×2 (05:30→12:02)
[2025-08-25 07:40] VITALS: BP 124/61; PULSE 72; RESP 16; TEMP 36.5; O2SAT 98
--- NOTE | 2025-08-25 08:35 | P.PNOB_ITS ---
OB - PN: Subj Subjective Date/time seen: 08/25/25 08:35 Patient comments: no complaints, pain well controlled, incisional pain, tolerating diet and flatus present OB - PN: Obj Data Labs 08/25/25 04:01 Labs: Laboratory Results - last 24 hr 08/25/25 04:01 Hgb 10.1 L Hct 30.7 L OB - PN A/P Plan day: 1 Plan: routine care Comments: No problems, routine care Time Spent With Patient Time: Total time spent is greater than 50% in coordination of care (as documented) at patient's floor/unit and/or counseling patient: Exam 2 Const: General: comfortable, no acute distress and alert Resp: Effort & Inspection: normal respiratory effort Auscultation: no crackles, no rales and no rhonchi Cardio: Rate: regular rate Heart sounds: no click, no murmurs and no rubs GI: Inspection: non-distended GI Palp: No Tenderness to palpation present (GI) Auscultation: normal bowel sounds Other: Incision - CDI Extrem: General: normal to inspection, no pedal edema and no calf tenderness
--- NOTE | 2025-08-25 08:35 | P.DS_ITS ---
DS: Admitting Diagnosis Discharge Date 08/25/2025 Admitting Diagnosis Term DS: Discharge Diagnosis Discharge Diagnosis (1) (spontaneous vaginal delivery): Code(s): O80 - Encounter for full-term uncomplicated delivery Status: Acute OB - DS: Summary OB Procedures : None OB Procedures Intrapartum: Spontaneous Vag Delivery OB Procedures: : None Peripartum Data Laceration Description: Perineal - 2nd Degree Episiotomy description: None Time Spent with Patient Time attestation: Total time spent providing and/or coordinating discharge services: DS: Data Data Completed and Pending Labs on day of discharge: Labs from last 24 hours 08/25/25 04:01 Hgb 10.1 L Hct 30.7 L Discharge Plan Discharge Discharging Clinician: Stone Lee Patient Disposition: Home Activity: pelvic rest Diet: regular Patient Instructions: Antibiotic Form Patient Language: [place] Stand Alone Forms: General Discharge Information Follow-up/Referrals: Stone Lee MD [Physician, [employer]] Discharge Medications: Continued prenat.vits,adam,[id number] Tablet 1 tablet PO DAILY bupropion HCl 200 mg tablet sustained-release 12 hr PO Date of admission: 08/23/25 22:39 Primary Care Provider: UNKNOWN,DOCTOR Admitting Provider: Raj Zendejas Attending physician on admission: Raj Zendejas Condition: Stable
[2025-08-25] MEDS: DOCUSATE SODIUM 100 MG CAPSULE PO (09:15)
--- NOTE | 2025-08-25 14:10 | WPDANLDPN2 ---
Anes-Prog Note L&D Date/Time: 08/25/25 14:10 Comfortable throughout: labor and delivery Neuraxial method: epidural Epidural/Spinal procedure site: clean & non-tender Neuro status: Neuro function grossly intact. Cardiovascular status: normal Respiratory status: normal Airway patency: baseline Mental status: baseline Post-Op hydration status: normal Vital Signs: Last Vital Signs Temp 36.5 C 08/25/25 07:40 Pulse 72 08/25/25 07:40 Resp 16 08/25/25 07:40 BP 124/61 08/25/25 07:40 Pulse Ox 98 08/25/25 07:40 O2 Del Method Room Air 08/25/25 04:30 Pain score (VAS): 1/10 I/O: Intake & Output 08/24/25 08/25/25 08/25/25 23:59 07:59 15:59 Intake Total 240 Balance 240 Post-procedural complaints: none Patient feedback: Patient satisfied with anesthetic care.
[2025-08-25 20:15] VITALS: BP 114/70; PULSE 72; PULSE 95; RESP 16; RESP 18; TEMP 36.7; O2SAT 96; O2SAT 98
[2025-08-26] MEDS: DOCUSATE SODIUM 100 MG CAPSULE PO (06:48)
[2025-08-26] MEDS: IBUPROFEN 600 MG TABLET PO (06:49)
[2025-08-26] MEDS: ACETAMINOPHEN 325 MG TABLET 650 MG PO (06:49)
[2025-08-26 07:45] VITALS: BP 119/76; PULSE 67; RESP 16; TEMP 36.8; O2SAT 98
--- NOTE | 2025-08-26 09:10 | P.PNOB_ITS ---
OB - PN: Subj Subjective Date/time seen: 08/26/25 09:10 Interval history: PPD#2 s/p Doing well, pain controlled Voiding without issue Tolerating general diet Ready for discharge home OB - PN: Obj Data Labs 08/25/25 04:01 OB - PN A/P Plan day: 2 Plan: routine care and discharge home Time Spent With Patient Time: Total time spent is greater than 50% in coordination of care (as documented) at patient's floor/unit and/or counseling patient: Review of Systems 2 Review of Systems: All systems reviewed & are unremarkable except as noted in HPI and below Exam 2 Const: General: comfortable and no acute distress O rientation/consciousness: patient oriented x3 Resp: Effort & Inspection: normal respiratory effort
[2025-08-26] MEDS: INFLUENZA VACCINE 45 MCG/0.5 ML SYRINGE IM (09:34)
[2025-08-27 09:20] VITALS: BP 126/71; PULSE 82; RESP 18; TEMP 36.6; O2SAT 100
== END 2025-08-26 10:35 | disposition home or self-care (01) | DRG 807 ==
LOC: ANHOB2 08-25 08:40 → ANHLDR 08-29 10:15 → ANHOB2 08-29 10:15
PROVIDERS: Admitting Provider Obstetrics & Gynecology; Visit Provider Obstetrics & Gynecology
DX: O77.0 Labor and delivery complicated by meconium in amniotic fluid (principal); Z37.0 Single live birth; Z3A.37 37 weeks gestation of pregnancy; O70.1 Second degree perineal laceration during delivery; Z23 Encounter for immunization
CPT/HCPCS: 36415; 85014; 85018; 85025; 86593; 86850; 86900; 86901; 90471; 90656; A9270; G0008; J2590; J2795; J7120